=== PATIENT | female | born 1935 | race Caucasian/White ===

== ENCOUNTER 2016-11-26 09:33 | Outpatient (CLI) | payer MEDICARE ==
[2016-11-26 10:15] LABS: ALT (SGPT) 16 U/L (0-55); AST (SGOT) 16 U/L (5-34); Alkaline Phosphatase 65 U/L (40-150); Anion Gap 13 mmol/L (10-20); BUN (Urea Nitrogen) 11 mg/dL (9.8-20.1); Bilirubin, Direct 0.2 mg/dL (0.1-0.3); Bilirubin, Total 0.5 mg/dL (0.2-1.2); Calc. Creatinine Clearance 0 mL/min (70-130); Carbon Dioxide 29 mmol/L (23-31); Cardiac Risk 2.4 (Less than 4.5); Chloride 102 mmol/L (98-107); Cholesterol 140 mg/dL (< 200 Desired); Estimated GFR-MDRD 75; Glucose 92 mg/dL (83-110); HDL Cholesterol 58 mg/dL (>60 Neg Risk); LDL Cholesterol, Calculated 66 mg/dL; Potassium 4.2 mmol/L (3.5-5.1); Protein, Total 6.2 g/dL (5.8-8.1); Sodium 140 mmol/L (136-145); Triglycerides 80 mg/dL (Less than 150)
== END 2016-11-26 09:34 | disposition home or self-care (01) ==
LOC: MADLAB 09:33
PROVIDERS: ATTEND Internal Medicine Cardiovascular Disease
DX: E78.2 Mixed hyperlipidemia (principal); I10 Essential (primary) hypertension
CPT/HCPCS: 36415; 80048; 80061; 80076

== ENCOUNTER 2017-04-21 12:33 | Outpatient (CLI) | payer MEDICARE | END 2017-04-21 12:34 | disposition home or self-care (01) | LOC: MADLAB 12:33 | PROVIDERS: ATTEND Surgery | DX: R23.3 Spontaneous ecchymoses (principal); D64.9 Anemia, unspecified | CPT/HCPCS: 36415; 82607 ==

== ENCOUNTER 2017-09-17 05:50 | Emergency (ER) | payer MEDICARE ==
[2017-09-17 07:03] LABS: Prothrombin Time 12.9 SEC (12.0-14.7)
[2017-09-17 07:04] LABS: PTT 22.7 SEC (22.9-36.1)
[2017-09-17 07:14] LABS: CKMB 2.3 ng/mL (0-6.6); Troponin I Less than 0.010 ng/mL (< 0.028)
[2017-09-17 07:17] LABS: ALT (SGPT) 16 U/L (8-55); AST (SGOT) 18 U/L (5-34); Albumin 3.5 g/dL (3.4-4.8); Alkaline Phosphatase 48 U/L (40-150); Anion Gap 13 mmol/L (10-20); BUN (Urea Nitrogen) 16 mg/dL (9.8-20.1); Bilirubin, Total 0.3 mg/dL (0.2-1.2); CK (CPK) 229 U/L (29-168); Calc. Creatinine Clearance 0 mL/min (70-130); Calcium 8.7 mg/dL (7.8-10.44); Carbon Dioxide 26 mmol/L (23-31); Chloride 101 mmol/L (98-107); Estimated GFR-MDRD 84; Globulin 2.4 g/dL (2.4-3.5); Glucose 114 mg/dL (83-110); Magnesium 2.1 mg/dL (1.6-2.6); Potassium 4.1 mmol/L (3.5-5.1); Protein, Total 5.9 g/dL (6.0-8.3); Sodium 136 mmol/L (136-145)
[2017-09-17 07:21] LABS: Anisocytosis SLIGHT = 6-15 cells (100X) (0-5/hpf); Eosinophils 2 % (0-10); Giant Platelets SLIGHT; Hypochromia MODERATE=16-30 cells (100X) (0-5/hpf); Lymphocytes 10 % (21-51); MDiff Complete? YES; Macrocytosis SLIGHT = 6-15 cells (100X) (0-5/hpf); Mean Corpuscular HGB CONC 31.7 g/dL (32.0-36.0); Mean Corpuscular Hemoglobin 35.7 pg (27.0-31.0); Mean Corpuscular Volume 112.4 fl (81.0-99.0); Mean Platelet Volume 11.6 fL (7.4-10.4); Microcytosis SLIGHT = 6-15 cells (100X) (0-5/hpf); Monocytes 4 % (0-10); Neutrophil 84 % (42-75); PLT Morphology Comment Appears Adequate; Platelet Count 168 thou/uL (130-400); Poikilocytosis SLIGHT = 6-15 cells (100X) (0-5/hpf); RBC Distribution Width 17.6 % (11.5-14.5); RBC Morphology Abnormal; Red Blood Cell (RBC) Count 3.08 mill/uL (4.20-5.40); Target Cells SLIGHT = 2-5 cells (100X) (0-1/hpf); White Blood Cell (WBC) Count 5.9 thou/uL (4.8-10.8)
[2017-09-17 07:22] LABS: #Basophils 0.1 thou/uL (0.0-0.2); #Eosinphils 0.1 thou/uL (0.0-0.7); #Lymphocytes 0.8 thou/uL (1.20-3.40); #Monocytes 0.5 thou/uL (0.11-0.59); #Neutrophils 4.5 thou/uL (1.40-6.50); %Basophils 0.9 % (0.0-1.0); %Eosinophils 1.2 % (0.0-10.0); %Lymphocytes 13.2 % (21.0-51.0); %Monocytes 9.2 % (0.0-10.0); %Neutrophils 75.5 % (42.0-75.0)
[2017-09-17 07:48] LABS: Blood, Urine Negative (Negative); Clarity Clear (Clear); Glucose, Urine (Dipstick) Negative (Negative); Leukocyte Negative (Negative); Nitrite Negative (Negative); Protein, Urine (Dipstick) Trace mg/dL (Neg-Trace); Specific Gravity, Urine 1.025 (1.005-1.030); pH, Urine 6.5 (5.0-9.0)
[2017-09-17 07:53] LABS: Bilirubin Negative (Negative); RBC/HPF None Seen HPF (0-3); Squamous Epithelial 0-3 HPF (0-3); WBC/HPF None Seen HPF (0-3)
[2017-09-17 07:54] LABS: Bacteria/HPF None Seen HPF (None Seen); Other Microscopic Description C&S SET UP
--- NOTE | 2017-09-17 08:15 | RAD ---
UPRIGHT PORTABLE CHEST 1 VIEW: HISTORY: An 82-year-old female with weakness. FINDINGS: Partial column stimulator leads in place. Atherosclerosis of the aorta with some ectasia. No conflu ent pneumonia, overt edema, or pleural effusion. Stable from prior study, 07/21/14. IMPRESSION: Atherosclerosis of the aorta with ectasia. No significant acute intrathoracic disease. POS: [facility]
[2017-09-17] MEDS ORDERED: Sodium Chloride 0.9% 1,000 ML BAG ONE (09:01)
[2017-09-17] MEDS ORDERED: HYDROcodone/Acetaminophen 5/325 mg Tablet ONE (09:36)
--- NOTE | 2017-09-17 10:22 | CT ---
CT LUMBAR SPINE NONCONTRAST: HISTORY: Low back pain. Leg weakness. FINDINGS: There is approximately 40% compression of the T12 and L1 vertebral bodies. Radiopaque cement is pres ent within the L1 vertebral body from prior vertebroplasty. There is mild retropulsion of the L1 sup erior end plate that compromises the AP diameter of the thecal sac by approximately 30%. Postoperati ve changes of the lower lumbar spine including anterior fixation and interbody fusion material at the L4-5 level and surgical absence of the posterior elements at the L3-4-5 levels. No focal disk herni ation is apparent. Osseous structures are demineralized. Osteophytosis is present throughout the ve rtebral bodies and facets. At the lumbosacral junction, there is gas-disk phenomenon and grade II degenerative spondylolisthesis . Dorsal column stimulator leads enter the posterior aspect of the thoracolumbar central spinal dani l and ascend into the thoracic spine. Within the partially visualized retroperitoneum, there is prominent calcification of the arterial str uctures. Diverticula arise from the sigmoid colon. IMPRESSION: 1. Partial compression of the T12 and L1 vertebrae, favored to be chronic. Extensive postoperative and degenerative changes are as detailed above. No acute injury to explain leg weakness is evident. 2. Atherosclerosis. POS: [facility]
== END 2017-09-17 10:29 | disposition short-term general hospital (02) ==
LOC: MADERS 05:50
DX: R53.1 Weakness (principal); E78.5 Hyperlipidemia, unspecified; K21.9 Gastro-esophageal reflux disease without esophagitis; E03.9 Hypothyroidism, unspecified; Z79.899 Other long term (current) drug therapy
CPT/HCPCS: 36415; 71045; 72131; 80053; 81001; 82550; 82553; 83605; 83735; 83880; 84443; 84484; 85025; 85610; 85730; 87086; 93005; 94760; 96360; 96361; J7050

== ENCOUNTER 2019-01-02 11:04 | Outpatient (CLI) | payer MEDICARE ==
--- NOTE | 2019-01-02 11:27 | RAD ---
RADIOGRAPH CHEST 2 VIEWS: DATE: 01/02/2019 HISTORY: 83-year-old female with asthmatic bronchitis FINDINGS: There is no airspace density, pulmonary edema, pleural effusion, pneumothorax, or cardiomegaly. IMPRESSION: No acute cardiopulmonary findings.
== END 2019-01-02 11:05 | disposition home or self-care (01) ==
LOC: MADRAD 11:04
PROVIDERS: ATTEND Family Medicine
DX: J45.909 Unspecified asthma, uncomplicated (principal)
CPT/HCPCS: 71046

== ENCOUNTER 2019-08-17 17:31 | Inpatient (IN) | payer MEDICARE ==
[2019-08-17] MEDS ORDERED: Nitroglycerin 0.4 MG TAB 1 EACH ONE (18:19)
[2019-08-17] MEDS ORDERED: Fentanyl 100 MCG/2 ML VIAL ONE (18:57)
--- NOTE | 2019-08-17 19:10 | RAD ---
RIGHT KNEE FOUR VIEWS: 08/17/19 HISTORY: Injury. Right knee pain. FINDINGS/IMPRESSION: A total knee arthroplasty is present. There is a cortical step-off involving the medial femoral cond yle suspicious for a fracture. Clinical correlation is recommended. POS: [facility]
--- NOTE | 2019-08-17 19:11 | RAD ---
RIGHT TIBIA AND FIBULA TWO VIEWS: 08/17/19 HISTORY: Injury. Unable to bear weight. The bones appear demineralized. Vascular calcifications are present. A total knee prosthesis is noted . There is no signs of fracture. IMPRESSION: No evidence of fracture. POS: [facility]
[2019-08-17] MEDS ORDERED: Acetaminophen 325 MG TAB ONE (21:33)
[2019-08-17] MEDS ORDERED: HYDROcodone/Acetaminophen 5/325 mg Tablet ONE (21:33)
[2019-08-17] MEDS ORDERED: Enoxaparin Sodium 30 MG/0.3 ML SYRINGE ONE (21:33)
[2019-08-17 23:25] VITALS: BMI 19.8
[2019-08-18] MEDS: Acetaminophen 325 MG TAB PO PRN ×3 (03:42→22:20)
[2019-08-18 06:22] LABS: ALT (SGPT) 15 U/L (8-55); AST (SGOT) 14 U/L (5-34); Albumin 3.5 g/dL (3.4-4.8); Alkaline Phosphatase 63 U/L (40-110); Anion Gap 12 mmol/L (10-20); BUN (Urea Nitrogen) 14 mg/dL (9.8-20.1); Bilirubin, Total 0.6 mg/dL (0.2-1.2); Calc. Creatinine Clearance 50 mL/min (70-130); Calcium 8.2 mg/dL (7.8-10.44); Carbon Dioxide 24 mmol/L (23-31); Chloride 109 mmol/L (98-107); Estimated GFR-MDRD Greater than 90; Globulin 2.1 g/dL (2.4-3.5); Glucose 102 mg/dL (83-110); Potassium 3.2 mmol/L (3.5-5.1); Protein, Total 5.6 g/dL (6.0-8.3); Sodium 142 mmol/L (136-145)
[2019-08-18 06:28] LABS: #Basophils 0.2 thou/uL (0.0-0.2); #Eosinphils 0.4 thou/uL (0.0-0.7); #Lymphocytes 0.8 thou/uL (1.20-3.40); #Monocytes 0.9 thou/uL (0.11-0.59); #Neutrophils 7.6 thou/uL (1.40-6.50); %Basophils 2.4 % (0.0-1.0); %Eosinophils 3.8 % (0.0-10.0); %Lymphocytes 8.1 % (21.0-51.0); %Neutrophils 76.7 % (42.0-75.0); Anisocytosis MARKED = >30 cells (100X) (0-5/hpf); Hemoglobin 7.2 g/dL (12.0-16.0); MDiff Complete? YES; Mean Corpuscular HGB CONC 30.2 g/dL (32.0-36.0); Mean Corpuscular Hemoglobin 27.5 pg (27.0-31.0); Mean Corpuscular Volume 90.9 fL (78.0-98.0); Mean Platelet Volume 12.1 fL (7.4-10.4); Ovalocytes MODERATE= 6-15 cells (100X) (0-1/hpf); Platelet Count 195 thou/uL (130-400); Red Blood Cell (RBC) Count 2.62 mill/uL (4.20-5.40); Target Cells SLIGHT = 2-5 cells (100X) (0-1/hpf)
[2019-08-18] MEDS ORDERED: HYDROcodone/Acetaminophen 5/325 mg Tablet PO PRN (07:27)
[2019-08-18] MEDS: Amlodipine 5 MG TAB PO SCH (07:50)
[2019-08-18] MEDS: Lisinopril 5 MG TAB PO SCH (07:51)
[2019-08-18] MEDS ORDERED: Enoxaparin Sodium 30 MG/0.3 ML SYRINGE SC SCH (09:00)
[2019-08-18] MEDS ORDERED: Clopidogrel Bisulfate 75 MG TAB PO SCH (09:00)
[2019-08-18] MEDS ORDERED: Potassium Chloride 10 MEQ TAB PO SCH (10:45)
[2019-08-18] MEDS ORDERED: Polyethylene Glycol 3350 17 GM Packet PO SCH (10:45)
[2019-08-18] MEDS: HYDROcodone/Acetaminophen 5/325 mg Tablet PO PRN ×4 (11:52→20:15)
[2019-08-18 12:18] LABS: #Basophils 0.2 thou/uL (0.0-0.2); #Eosinphils 0.4 thou/uL (0.0-0.7); #Lymphocytes 0.7 thou/uL (1.20-3.40); #Monocytes 0.8 thou/uL (0.11-0.59); %Basophils 1.7 % (0.0-1.0); %Eosinophils 4.1 % (0.0-10.0); %Lymphocytes 6.8 % (21.0-51.0); %Monocytes 8.3 % (0.0-10.0); %Neutrophils 79.2 % (42.0-75.0); Hemoglobin 7.1 g/dL (12.0-16.0); Mean Corpuscular HGB CONC 30.7 g/dL (32.0-36.0); Mean Corpuscular Hemoglobin 27.8 pg (27.0-31.0); Mean Corpuscular Volume 90.6 fL (78.0-98.0); Mean Platelet Volume 12.7 fL (7.4-10.4); Platelet Count 190 thou/uL (130-400); Red Blood Cell (RBC) Count 2.55 mill/uL (4.20-5.40); White Blood Cell (WBC) Count 10.1 thou/uL (4.8-10.8)
[2019-08-18 12:33] LABS: Anisocytosis MODERATE=16-30 cells (100X) (0-5/hpf); Hypochromia SLIGHT = 6-15 cells (100X) (0-5/hpf)
[2019-08-18 12:34] LABS: Target Cells SLIGHT = 2-5 cells (100X) (0-1/hpf)
[2019-08-18] MEDS: Potassium Chloride 10 MEQ TAB PO SCH (16:31)
[2019-08-18] MEDS: Atorvastatin Calcium 40 MG TAB PO SCH (20:14)
[2019-08-18] MEDS ORDERED: UNISOM 25 MG PO SCH (21:00)
[2019-08-18] MEDS: Melatonin 3 MG TAB PO PRN (22:20)
[2019-08-19] MEDS: HYDROcodone/Acetaminophen 5/325 mg Tablet PO PRN ×4 (00:32→20:41)
[2019-08-19 05:50] LABS: Anion Gap 11 mmol/L (10-20); BUN (Urea Nitrogen) 15 mg/dL (9.8-20.1); Calc. Creatinine Clearance 49 mL/min (70-130); Calcium 8.1 mg/dL (7.8-10.44); Carbon Dioxide 26 mmol/L (23-31); Chloride 107 mmol/L (98-107); Estimated GFR-MDRD 90; Glucose 110 mg/dL (83-110); Potassium 3.9 mmol/L (3.5-5.1); Sodium 140 mmol/L (136-145)
[2019-08-19 06:06] LABS: Anisocytosis MARKED = >30 cells (100X) (0-5/hpf); Helmet Cells SLIGHT = 2-5 cells (100X) (0-1/hpf); Hypochromia MODERATE=16-30 cells (100X) (0-5/hpf); MDiff Complete? YES; Ovalocytes MODERATE= 6-15 cells (100X) (0-1/hpf); Target Cells MARKED = >16 cells (100X) (0-1/hpf)
[2019-08-19 06:07] LABS: #Basophils 0.2 thou/uL (0.0-0.2); #Eosinphils 0.7 thou/uL (0.0-0.7); #Lymphocytes 1.4 thou/uL (1.20-3.40); #Neutrophils 5.8 thou/uL (1.40-6.50); %Basophils 1.7 % (0.0-1.0); %Eosinophils 7.8 % (0.0-10.0); %Lymphocytes 15.8 % (21.0-51.0); %Monocytes 11.3 % (0.0-10.0); %Neutrophils 63.5 % (42.0-75.0); Hemoglobin 6.9 g/dL (12.0-16.0); Mean Corpuscular HGB CONC 31.2 g/dL (32.0-36.0); Mean Corpuscular Hemoglobin 27.9 pg (27.0-31.0); Mean Corpuscular Volume 89.5 fL (78.0-98.0); Mean Platelet Volume 13.1 fL (7.4-10.4); Platelet Count 171 thou/uL (130-400); Red Blood Cell (RBC) Count 2.47 mill/uL (4.20-5.40); White Blood Cell (WBC) Count 9.1 thou/uL (4.8-10.8)
[2019-08-19] MEDS: Amlodipine 5 MG TAB PO SCH (08:21)
[2019-08-19] MEDS: Potassium Chloride 10 MEQ TAB PO SCH ×2 (08:21→17:32)
[2019-08-19] MEDS: Lisinopril 5 MG TAB PO SCH (08:21)
[2019-08-19] MEDS: Polyethylene Glycol 3350 17 GM Packet PO SCH (08:22)
[2019-08-19] MEDS: Atorvastatin Calcium 40 MG TAB PO SCH (20:42)
[2019-08-19] MEDS: Melatonin 3 MG TAB PO PRN (21:38)
[2019-08-20] MEDS: HYDROcodone/Acetaminophen 5/325 mg Tablet PO PRN ×4 (01:15→20:33)
[2019-08-20 06:07] LABS: Anion Gap 13 mmol/L (10-20); BUN (Urea Nitrogen) 12 mg/dL (9.8-20.1); Calc. Creatinine Clearance 52 mL/min (70-130); Calcium 8.2 mg/dL (7.8-10.44); Carbon Dioxide 25 mmol/L (23-31); Chloride 107 mmol/L (98-107); Estimated GFR-MDRD Greater than 90; Glucose 106 mg/dL (83-110); Potassium 4.5 mmol/L (3.5-5.1); Sodium 140 mmol/L (136-145)
[2019-08-20 06:16] LABS: #Basophils 0.2 thou/uL (0.0-0.2); #Eosinphils 0.6 thou/uL (0.0-0.7); #Lymphocytes 1.2 thou/uL (1.20-3.40); #Neutrophils 5.3 thou/uL (1.40-6.50); %Basophils 1.9 % (0.0-1.0); %Lymphocytes 14.6 % (21.0-51.0); %Monocytes 11.6 % (0.0-10.0); %Neutrophils 64.9 % (42.0-75.0); Anisocytosis MODERATE=16-30 cells (100X) (0-5/hpf); Hemoglobin 8.4 g/dL (12.0-16.0); MDiff Complete? YES; Mean Corpuscular HGB CONC 31.2 g/dL (32.0-36.0); Mean Corpuscular Hemoglobin 27.5 pg (27.0-31.0); Mean Corpuscular Volume 88.1 fL (78.0-98.0); Mean Platelet Volume 13.8 fL (7.4-10.4); Ovalocytes MODERATE= 6-15 cells (100X) (0-1/hpf); Platelet Count 175 thou/uL (130-400); RBC Distribution Width 18.7 % (11.5-14.5); Red Blood Cell (RBC) Count 3.05 mill/uL (4.20-5.40); Target Cells SLIGHT = 2-5 cells (100X) (0-1/hpf); White Blood Cell (WBC) Count 8.2 thou/uL (4.8-10.8)
--- NOTE | 2019-08-20 07:19 | HP ---
CHIEF COMPLAINT: Fall with severe pain in her right knee. HISTORY OF PRESENT ILLNESS: The patient is an 84-year-old white female, who has a history of hypertension, coronary artery disease, has a gait abnormality secondary to bilateral knee replacements. Early on the morning of 08/17/2018, the patient had gotten up to go to the bathroom and had fallen and hit her knee. She could not get up, was complaining of pain in the right hip. EMS was called and she was taken to the emergency room in [place] at [facility]. There, she was evaluated and underwent chest x-ray, which was clear. X-ray of her right hip, which showed no evidence of any fracture. She also underwent a CT of the pelvis, which showed no acute fracture. She did show evidence of a chronic ununited left obturator ring fracture and left posterior ilial bone graft site and a healed fracture of the left posterior ilium and diffuse osteopenia. She was sent home. Her son, Jomar, took her home, but she could not walk. She had progressive pain and inability to walk. Her son called me and said that his mother was having severe pain in the right knee and that they could not manage her in home. Her could not take care of her and she could not walk and besides was having severe pain in the right knee. Apparently, this right knee had not been evaluated. The patient was directed to go to the emergency room here in [place]. There, she was evaluated and was found to have a moderate effusion of the right knee. The knee was x-rayed and the radiologist reviewed this and found that she had a total knee orthoplasty. She also had a cortical step-off involving the medial condyle suspicious of a fracture. The ER doctor, Dr. Bella, conferred with the on-call orthopedic surgeon, Dr. Rojelio Flanagan, who reviewed the films and said that this would be initially managed with no weightbearing, pain control, and evaluation with repeat x-rays in a week to see if there was any displacement. This patient was admitted here at [facility] with this in mind and she was placed to bedrest with no weightbearing and started on Lovenox for DVT prophylaxis. The patient was seen early on the morning of 08/18/2018, with her son, Jomar, in attendance. She said she had slept pretty well through the night, but awoke around 6 and was uncomfortable. She had taken Tylenol with hydrocodone 325/5 mg and then this was repeated this morning and she was reasonably comfortable, particularly with the ice application. She has remained with no weightbearing. Nurses held her Plavix and her Lovenox because her blood count had dropped from 8.6 on admission to 7.2. The patient reviewed with me what had happened about the fall in the bathroom. She said she did not hit her head and there had been no loss of consciousness. PAST HISTORY: Coronary heart disease. The patient has had no surgery on her heart, has had no stents, she just medically managed. Hypertension, overactive bladder , hypercholesterolemia, depression, hypothyroidism, anemia of chronic illness. Hemoglobin has been around 9.9 in December of 2017. Last reading was in June of 2019, was 9.0. 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 The patient has had bilateral total knee replacements, BREANA and BSO. Also, has had surgery on her neck. The patient has also had gait abnormality that stabilized with a walker. PRESENT MEDICINES: 1. Lisinopril 2.5 mg daily. 2. Amlodipine 2.5 mg daily. 3. Atorvastatin 40 mg daily. 4. Plavix 75 mg daily. 5. Ranolazine ER 1000 mg b.i.d. 6. Oxybutynin 5 mg two tablets at bedtime. 7. Ventolin inhaler two puffs every 4 hours as needed. ALLERGIES: MORPHINE. REVIEW OF SYSTEMS: GENERAL: The patient has had no recent weight gain or loss. The patient has had no fever. HEAD AND NECK: No recent head trauma. PULMONARY: No complaints. CARDIOVASCULAR: No chest pain. GASTROINTESTINAL: No complaints. GENITOURINARY: The patient complains of urinary frequency. MUSCULOSKELETAL: The patient complains of right knee pain. HABITS: Alcohol, none; tobacco, none. SOCIAL HISTORY: The patient is and lives with her . ACTIVITIES OF DAILY LIVING: The patient able to dress herself, bathe herself, feed herself. The patient ambulates with the use of a walker. CODE STATUS: Full code. PHYSICAL EXAMINATION: GENERAL: Shows an 84-year-old white female, who is sitting up in bed. She appears very pale, but she does appear comfortable. VITAL SIGNS: Her temperature is 97.7, pulse 75, respirations 16, O2 saturation 93% on room air, blood pressure 158/70. Her weight is 105. Her height is 60 inches. HEENT: Head, normocephalic and atraumatic. Eyes; pupils are equal, round, and reactive. Ears, TMs are clear. Nose, normal. Mouth and throat, normal. NECK: Carotids are equal and strong. Thyroid not enlarged. LUNGS: Clear. HEART: Regular rate. No murmurs. ABDOMEN: Soft with no organomegaly. EXTREMITIES: Hips are nontender. Left knee, there is a well-healed vertical incision. There is no effusion. Right knee, very limited range of motion. There is a large effusion present and limited range of motion, and the lower leg has no edema. NEUROLOGIC: The patient alert and oriented x3. She has limited motion in that right leg. Otherwise, there is no weakness in the other extremities. LABORATORY DATA: Her hemoglobin on 06/19, was 9.0. Hemoglobin on 08/17/2019, was 8.6, and hemoglobin on 08/18 was 7.2 with hematocrit of 23.8, white blood cell count 10,000, with 77% segs, 8% lymphocytes, and platelet count of a 195,000. Sodium 142, potassium 3.2, BUN 14, creatinine 0.62, GFR greater than 90, glucose 102, albumin 3.5. IMPRESSION: 1. Undisplaced fracture of the right medial femoral condyle. a. Secondary to a fall on the morning of 08/17/2019. 2. Chronic anemia. a. Hemoglobin chronically is around 9 in June 2019. b. Drop in hemoglobin from 8.6 on 08/17 to 7.2 on 08/18 secondary to acute blood loss from the femoral condyle fracture. 3. Hypertension. 4. Coronary artery disease. a. Asymptomatic. 5. Hyperlipidemia. 6. Overactive bladder. 7. Spondylosis of the spine. 8. Hypokalemia. PLAN: I have placed the patient in a knee immobilizer and the patient will be placed nonweightbearing per recommendation of Orthopedic surgeon, Dr. Flanagan. We will re x-ray in a week to ensure there has been no displacement and have him review this x-ray for further disposition. We will repeat CBC. If this drops below 7 , we will need to transfuse. I have stopped the Plavix and the Lovenox, and placed the patient in a knee immobilizer. We will continue the hydrocodone/acetaminophen 5 /325 for pain. We will use ice pack for discomfort. We will also place the patient on potassium supplementation. Job ID: [id number] [facility]
[2019-08-20] MEDS: Lisinopril 5 MG TAB PO SCH (10:03)
[2019-08-20] MEDS: Polyethylene Glycol 3350 17 GM Packet PO SCH (10:06)
[2019-08-20] MEDS: Amlodipine 5 MG TAB PO SCH (10:06)
--- NOTE | 2019-08-20 11:38 | PRG ---
DATE OF SERVICE: 08/19/2019 SUBJECTIVE: The patient said she had a good night. She said her right leg feels better in the knee immobilizer and as long as she did not move the leg. OBJECTIVE: GENERAL: The patient is sitting upright in bed. She is smiling, looks very comfortable. VITAL SIGNS: Show a temperature 97.1, pulse 93, respirations 14, O2 saturation 93% on room air, and blood pressure 146/65. LUNGS: Clear. HEART: Regular rate. EXTREMITIES: Her lower extremity, the right leg is in a knee immobilizer. There is a moderate effusion in the right knee, but unchanged from previous. The lower leg has no swelling or tenderness in the calf. Left lower leg has no swelling. LABORATORY DATA: The H and H done yesterday at noon was 7.1, today is 6.9 with a platelet count of 171,000. ASSESSMENT: 1. Undisplaced fracture of the medial condyle of the right femur. a. Secondary to a fall on the crop farmers of 08/17/2019. b. Managed with knee immobilizer and nonweightbearing per recommendation of on-call orthopedic surgeon, Dr. Rojelio Flanagan. c. Comfortable as of 08/19/2019. 2. Chronic anemia. a. Hemoglobin usually runs in the 9. b. Drop in hemoglobin from 8.6 to 7.4 from 08/17 to 08/18 secondary to acute blood loss from the fracture and then to 7.1 at noon on 08/18. c. Hemoglobin 6.9 as of 08/19/2019. 3. Coronary artery disease. a. Asymptomatic. 4. Hypertension controlled. 5. Hyperkalemia, improved potassium of 3.9 as of 08/19. PLAN: Continue nonweightbearing in the knee immobilizer. Transfuse 1 unit of packed RBCs. Recheck CBC and basic metabolic panel in the morning. Job ID: [id number] [facility]
--- NOTE | 2019-08-20 11:42 | PRG ---
DATE OF SERVICE: 08/20/2019 SUBJECTIVE: The patient says she is doing okay this morning. She said she not sleep as well last night, some nights are like that. She says her knee is feeling okay this morning. The patient did receive 1 unit of packed red blood cells yesterday. OBJECTIVE: GENERAL: The patient is lying in bed. She is awake and alert oriented x3. VITAL SIGNS: Shows temp 96.6, pulse 66, respirations 16, O2 saturation 94% on room air, blood pressure 145/66. LUNGS: Clear. HEART: Regular rate. EXTREMITIES: Right leg is in a knee immobilizer. Left leg no edema. LABORATORY DATA: CBC this morning shows a H and H of 8.4 and 26.9. This is after transfusion yesterday of 1 unit of packed RBCs. White cell count 8200 with 65% segs, 15% lymphocytes, and a platelet count of 175,000. Sodium 140, potassium 4.5. ASSESSMENT: 1. Undisplaced fracture of the right medial femoral condyle. a. Had to be immobilized in a knee immobilizer. b. NO weightbearing. .c. Pain controlled as of 08/20/2019. 2. Chronic anemia. a. Hemoglobin chronically is around 9 in June 2019. b. Drop in hemoglobin from 8.6 on 08/17 to 7.2 on 08/18 secondary to acute blood loss from the femoral condyle fracture. c. Transfused 1 unit of packed red blood cells on 08/19/2019 for drop in hemoglobin to 6.9. Hemoglobin 8.4 on 08/20/2019. 3. Hypertension. 4. Coronary artery disease. a. Asymptomatic. 4. Hyperlipidemia. 5. Overactive bladder. 6. Spondylosis of the spine. 7. Hypokalemia. a. Resolved with potassium of 4.5. PLAN: Continue PT. Up in chair as tolerated. Continue knee immobilizer. No weightbearing on the right leg. We will discontinue the potassium. Job ID: [id number] [facility]
[2019-08-20] MEDS: Acetaminophen 325 MG TAB PO PRN (13:53)
[2019-08-20] MEDS: Atorvastatin Calcium 40 MG TAB PO SCH (20:34)
[2019-08-21] MEDS: HYDROcodone/Acetaminophen 5/325 mg Tablet PO PRN ×2 (00:46→05:31)
[2019-08-21] MEDS: Melatonin 3 MG TAB PO PRN (00:49)
[2019-08-21 05:56] LABS: #Basophils 0.2 thou/uL (0.0-0.2); #Eosinphils 0.4 thou/uL (0.0-0.7); #Lymphocytes 1.1 thou/uL (1.20-3.40); #Monocytes 0.8 thou/uL (0.11-0.59); #Neutrophils 4.1 thou/uL (1.40-6.50); %Basophils 2.6 % (0.0-1.0); %Eosinophils 6.8 % (0.0-10.0); %Lymphocytes 17.1 % (21.0-51.0); %Monocytes 11.5 % (0.0-10.0); Anisocytosis MARKED = >30 cells (100X) (0-5/hpf); Hemoglobin 8.6 g/dL (12.0-16.0); MDiff Complete? YES; Macrocytosis MODERATE=16-30 cells (100X) (0-5/hpf); Mean Corpuscular HGB CONC 30.5 g/dL (32.0-36.0); Mean Corpuscular Hemoglobin 27.7 pg (27.0-31.0); Mean Platelet Volume 13.2 fL (7.4-10.4); Ovalocytes MARKED = >16 cells (100X) (0-1/hpf); Platelet Count 195 thou/uL (130-400); Platelet Morphology Comment Appears Adequate; RBC Distribution Width 19.5 % (11.5-14.5); White Blood Cell (WBC) Count 6.6 thou/uL (4.8-10.8)
[2019-08-21 07:48] VITALS: TEMP 96.5
[2019-08-21] MEDS: Polyethylene Glycol 3350 17 GM Packet PO SCH (08:09)
[2019-08-21] MEDS: Acetaminophen 325 MG TAB PO PRN (08:09)
[2019-08-21] MEDS: Amlodipine 5 MG TAB PO SCH (08:10)
[2019-08-21] MEDS: Lisinopril 5 MG TAB PO SCH (08:10)
[2019-08-21 08:11] VITALS: BP 151/74
--- NOTE | 2019-08-21 11:52 | PRG ---
DATE OF SERVICE: SUBJECTIVE: The patient says she feels all right today. She said she thinks she is ready to get up in a chair today. She said her pain seemed to be reasonably controlled. She continues to wear her knee immobilizer on the right leg. OBJECTIVE: GENERAL: The patient lying in bed, appears comfortable. VITAL SIGNS: Show a temperature of 96.5, pulse 67, respirations 16, O2 saturation 96% on room air, blood pressure 154/74. LUNGS: Clear. HEART: Regular rate. EXTREMITIES: Right lower leg, there is no edema in the lower leg. There is still a little effusion on the right knee. Knee is immobilized in a long-leg knee immobilizer. ASSESSMENT: 1. Undisplaced fracture of the right medial femoral condyle. a. Immobilized in a knee immobilizer. b. No weightbearing. c. Pain controlled as of 08/21/2019. 2. Chronic anemia. a. Hemoglobin chronically is around 9. b. Drop in hemoglobin from 8.6 on 08/17 to 7.2 on 08/18 secondary to acute blood loss from the femoral condyle fracture. c. Transfuse 1 unit of packed red blood cells on 08/19/2019 for drop in hemoglobin to 6.9. The hemoglobin on 08/20/2019, 8.4. 3. Hypertension. 4. Coronary artery disease. a. Asymptomatic. 5. Hyperlipidemia. 6. Overactive bladder. 7. Spondylosis of the spine. 8. Hypokalemia. a. Resolved. PLAN: Continue the knee immobilizer. No weightbearing on the right leg. We will move the patient to extended care. Continue PT and OT, and no weightbearing. At 7 days from the accident, we will arrange for the patient to have a repeat x-ray of the right knee, the right femur, and followup appointment with Dr. Flanagan. We will move the patient to Extended Care for continue PT and OT. Job ID: [id number] [facility]
== END 2019-08-21 12:38 | disposition swing bed (61) | DRG 534 ==
LOC: MADERS 17:31 → MADMS 21:43
PROVIDERS: ADMIT Family Medicine; ATTEND Family Medicine
PROC: 30233N1 Transfusion of Nonautologous Red Blood Cells into Peripheral Vein, Percutaneous Approach (ICD-10-PCS; principal; 2019-08-18)
DX: S72.434A Nondisplaced fracture of medial condyle of right femur, initial encounter for closed fracture (principal); D62 Acute posthemorrhagic anemia; M97.11XA Periprosthetic fracture around internal prosthetic right knee joint, initial encounter; I10 Essential (primary) hypertension; I25.10 Atherosclerotic heart disease of native coronary artery without angina pectoris; Z96.653 Presence of artificial knee joint, bilateral; F32.9 Major depressive disorder, single episode, unspecified; E03.9 Hypothyroidism, unspecified; Z79.02 Long term (current) use of antithrombotics/antiplatelets; Z79.899 Other long term (current) drug therapy; Z88.8 Allergy status to other drugs, medicaments and biological substances; D64.9 Anemia, unspecified; E87.6 Hypokalemia; W01.0XXA Fall on same level from slipping, tripping and stumbling without subsequent striking against object, initial encounter; M47.9 Spondylosis, unspecified; E87.5 Hyperkalemia; E78.5 Hyperlipidemia, unspecified; E78.00 Pure hypercholesterolemia, unspecified; D63.8 Anemia in other chronic diseases classified elsewhere; N32.81 Overactive bladder
CPT/HCPCS: 36415; 36430; 80048; 80053; 85025; 86850; 86900; 86901; 96372; 96374; J1650; J3010; P9016

== ENCOUNTER 2019-08-21 07:48 | Inpatient (IN) | payer MEDICARE ==
[2019-08-21] MEDS ORDERED: Amlodipine 5 MG TAB PO SCH (13:45)
[2019-08-21] MEDS ORDERED: Lisinopril 5 MG TAB PO SCH (13:45)
[2019-08-21] MEDS ORDERED: Polyethylene Glycol 3350 17 GM Packet PO SCH (13:45)
[2019-08-21] MEDS: HYDROcodone/Acetaminophen 5/325 mg Tablet PO PRN ×2 (14:02→19:12)
[2019-08-21] MEDS: Acetaminophen 325 MG TAB PO PRN (17:48)
[2019-08-21] MEDS: Atorvastatin Calcium 40 MG TAB PO SCH (21:25)
[2019-08-21] MEDS: DOXYLAMINE SUCCINATE 25 MG PO SCH (21:27)
[2019-08-22] MEDS: HYDROcodone/Acetaminophen 5/325 mg Tablet PO PRN ×5 (01:23→21:53)
[2019-08-22 05:54] LABS: Anion Gap 12 mmol/L (10-20); BUN (Urea Nitrogen) 11 mg/dL (9.8-20.1); Calc. Creatinine Clearance 51 mL/min (70-130); Carbon Dioxide 26 mmol/L (23-31); Chloride 106 mmol/L (98-107); Estimated GFR-MDRD 90; Potassium 4.2 mmol/L (3.5-5.1); Sodium 140 mmol/L (136-145)
[2019-08-22 05:55] LABS: Calcium 8.6 mg/dL (7.8-10.44); Glucose 95 mg/dL (83-110)
[2019-08-22 05:56] LABS: Anisocytosis MARKED = >30 cells (100X) (0-5/hpf); Band 1 % (5-11); Eosinophils 6 % (0-10); Hemoglobin 8.7 g/dL (12.0-16.0); Lymphocytes 16 % (21-51); MDiff Complete? YES; Mean Corpuscular HGB CONC 31.6 g/dL (32.0-36.0); Mean Corpuscular Hemoglobin 28.6 pg (27.0-31.0); Mean Corpuscular Volume 90.4 fL (78.0-98.0); Mean Platelet Volume 13.4 fL (7.4-10.4); Monocytes 7 % (0-10); Neutrophil 70 % (42-75); Platelet Count 208 thou/uL (130-400); Platelet Morphology Comment Appears Adequate; RBC Distribution Width 19.8 % (11.5-14.5); Red Blood Cell (RBC) Count 3.05 mill/uL (4.20-5.40); Target Cells SLIGHT = 2-5 cells (100X) (0-1/hpf); White Blood Cell (WBC) Count 5.8 thou/uL (4.8-10.8)
[2019-08-22] MEDS: Amlodipine 5 MG TAB PO SCH (07:58)
[2019-08-22] MEDS: Lisinopril 5 MG TAB PO SCH (07:58)
[2019-08-22] MEDS: Polyethylene Glycol 3350 17 GM Packet PO SCH (07:59)
[2019-08-22] MEDS: Acetaminophen 325 MG TAB PO PRN ×2 (09:13→17:32)
[2019-08-22] MEDS ORDERED: Ferrous Gluconate 324 MG TAB PO SCH (09:45)
--- NOTE | 2019-08-22 10:11 | PRG ---
DATE OF SERVICE: SUBJECTIVE: The patient said that she is feeling better. She is sitting up in a geriatric chair and feels good to be out of bed. OBJECTIVE: GENERAL: The patient is alert, appears in no distress. VITAL SIGNS: Temperature of 98.2, pulse 72, respirations are 16, O2 sat 94% on room air, and blood pressure 153/80. LUNGS: Clear. HEART: Regular rate. LABORATORY DATA: Her H and H are 8.7 and 27.6, sodium 140, potassium 4.2, BUN 11, and creatinine 0.63. ASSESSMENT: 1. Undisplaced fracture of the right femoral condyle secondary to a fall on 08/17/2019. a. Immobilized in a knee immobilizer. b. Nonweightbearing. c. Pain control. d. Stable as of 08/22/2019. 2. Chronic anemia. a. Hemoglobin chronically is around 9. b. Hemoglobin dropped from 8.6 on 08/17 to 7.2 on 08/18 secondary to acute blood loss from the fracture. c. Transfused 1 unit of packed RBCs on 08/19 for drop in hemoglobin to 6.9. Hemoglobin 8.4 on 08/20. Hemoglobin on 08/22 is 8.6. 3. Hypertension. 4. Coronary artery disease, asymptomatic. 5. Hyperlipidemia. 6. Overactive bladder. 7. Spondylosis of the spine. PLAN: 1. Continue the knee immobilizer. 2. We will add ferrous gluconate 324 mg one a day for the anemia. Continue nonweightbearing. The patient is scheduled to see Dr. Rojelio Flanagan, orthopedic surgeon, on 08/29 at his office, and he will x-ray the knee then. Job ID: [id number] [facility]
[2019-08-22] MEDS: Atorvastatin Calcium 40 MG TAB PO SCH (20:22)
[2019-08-22] MEDS: DOXYLAMINE SUCCINATE 25 MG PO SCH (20:22)
[2019-08-23] MEDS: HYDROcodone/Acetaminophen 5/325 mg Tablet PO PRN ×4 (04:50→19:25)
[2019-08-23] MEDS: Ferrous Gluconate 324 MG TAB PO SCH (08:14)
[2019-08-23] MEDS: Amlodipine 5 MG TAB PO SCH (08:15)
[2019-08-23] MEDS: Lisinopril 5 MG TAB PO SCH (08:15)
[2019-08-23] MEDS: Polyethylene Glycol 3350 17 GM Packet PO SCH (08:16)
--- NOTE | 2019-08-23 09:34 | PRG ---
DATE OF SERVICE: 08/23/2019 SUBJECTIVE: The patient said she is doing okay this morning. Nurse reported yesterday, she had a lot of pain and did not seem to get complete relief with the one to hydrocodone. OBJECTIVE: GENERAL: The patient lying in bed this morning. She seems comfortable this morning. VITAL SIGNS: Show a temperature of 98.2, pulse 68, respirations 16, O2 saturation 94% on room air, blood pressure 153/70. LUNGS: Clear. HEART: Regular rate. EXTREMITIES: There is an effusion over the right knee. The lower leg has no edema. ASSESSMENT: 1. Undisplaced fracture of the right femoral condyle secondary to a fall on 08/17/2019. a. Immobilized in a knee immobilizer. b. Nonweightbearing on right leg. c. Pain still not adequately controlled. 2. Chronic anemia. a. Hemoglobin chronically is around 9. b. Hemoglobin dropped from 8.6 on 08/17 to 7.2 on 08/18 secondary to acute blood loss from the fracture. c. Transfused 1 unit of packed RBCs on 08/19 for drop in hemoglobin to 6.9. Hemoglobin 8.4 on 08/20. Hemoglobin on 08/22 is 8.6. 3. Hypertension. 4. Coronary artery disease, asymptomatic. 5. Hyperlipidemia. 6. Overactive bladder. 7. Spondylosis of the spine. PLAN: 1. Continue knee immobilizer. 2. Due to follow up with Dr. Rojelio Flanagan, orthopedic surgeon on 08/29/2018. Continue nonweightbearing on the right leg and increase the hydrocodone 1 to 2 every 4 hours as needed. Job ID: [id number] [facility]
[2019-08-23] MEDS: Atorvastatin Calcium 40 MG TAB PO SCH (20:12)
[2019-08-23] MEDS: DOXYLAMINE SUCCINATE 25 MG PO SCH (20:12)
[2019-08-24] MEDS: HYDROcodone/Acetaminophen 5/325 mg Tablet PO PRN ×4 (00:57→17:44)
[2019-08-24] MEDS: Lisinopril 5 MG TAB PO SCH (09:09)
[2019-08-24] MEDS: Amlodipine 5 MG TAB PO SCH (09:11)
[2019-08-24] MEDS: Ferrous Gluconate 324 MG TAB PO SCH (09:11)
[2019-08-24] MEDS: Polyethylene Glycol 3350 17 GM Packet PO SCH (09:12)
--- NOTE | 2019-08-24 12:01 | PRG ---
DATE OF SERVICE: 08/24/2019 SUBJECTIVE: The patient said she is feeling better. She had a better night. She is up in a chair this morning. Occupational Therapy is working with her, and she is doing some exercises of her arms. OBJECTIVE: VITAL SIGNS: Show temperature 97.8, pulse 71, respirations 18, O2 saturation 95%, blood pressure 131/92. LUNGS: Clear. HEART: Regular rate. EXTREMITIES: The patient is wearing her knee immobilizer on that right knee. ASSESSMENT: 1. Undisplaced fracture of the right medial femoral condyle secondary to a fall on 08/17/2019. a. Immobilized in a knee immobilizer. b. Nonweightbearing on the right leg. c. Pain controlled. 2. Chronic anemia. a. Hemoglobin chronically around 9. b. Hemoglobin dropped from 8.6 on 08/17, to 7.2 on 08/18, secondary to acute blood loss from the fracture. c. Transfused 1 unit of packed RBCs on 08/19, for drop in the hemoglobin to 6.9. Hemoglobin 8.4 on 08/20. Hemoglobin on 08/22, 8.6. 3. Hypertension. 4. Coronary artery disease, asymptomatic. 5. Hyperlipidemia. 6. Overactive bladder. 7. Spondylosis of the spine. PLAN: Continue present care. Continue PT and OT. Job ID: [id number] [facility]
[2019-08-24] MEDS: Atorvastatin Calcium 40 MG TAB PO SCH (20:35)
[2019-08-24] MEDS: DOXYLAMINE SUCCINATE 25 MG PO SCH (20:36)
[2019-08-25] MEDS: HYDROcodone/Acetaminophen 5/325 mg Tablet PO PRN ×2 (04:56→13:32)
[2019-08-25] MEDS: Polyethylene Glycol 3350 17 GM Packet PO SCH (08:57)
[2019-08-25] MEDS: Lisinopril 5 MG TAB PO SCH (08:58)
[2019-08-25] MEDS: Ferrous Gluconate 324 MG TAB PO SCH (08:58)
[2019-08-25] MEDS: Amlodipine 5 MG TAB PO SCH (08:58)
[2019-08-25] MEDS: Atorvastatin Calcium 40 MG TAB PO SCH (20:35)
[2019-08-25] MEDS: DOXYLAMINE SUCCINATE 25 MG PO SCH (20:36)
[2019-08-26] MEDS: HYDROcodone/Acetaminophen 5/325 mg Tablet PO PRN ×4 (00:17→21:02)
[2019-08-26] MEDS: Lisinopril 5 MG TAB PO SCH (08:58)
[2019-08-26] MEDS: Amlodipine 5 MG TAB PO SCH (08:58)
[2019-08-26] MEDS: Ferrous Gluconate 324 MG TAB PO SCH (08:58)
[2019-08-26] MEDS: Polyethylene Glycol 3350 17 GM Packet PO SCH (08:59)
[2019-08-26] MEDS: Atorvastatin Calcium 40 MG TAB PO SCH (20:13)
[2019-08-26] MEDS: DOXYLAMINE SUCCINATE 25 MG PO SCH (22:45)
[2019-08-27] MEDS: HYDROcodone/Acetaminophen 5/325 mg Tablet PO PRN ×4 (02:23→20:34)
[2019-08-27] MEDS ORDERED: HYDROcodone/Acetaminophen 5/325 mg Tablet PO SCH (05:00)
--- NOTE | 2019-08-27 08:11 | PRG ---
DATE OF SERVICE: 08/25/2019 SUBJECTIVE: The patient said she slept real good last night. She still has pain in that knee, but usually able to control this with her pain medicine and ice pack. She is wearing her knee immobilizer and has had no weightbearing on that right leg. OBJECTIVE: GENERAL: The patient is sitting up in bed, appears comfortable, in no distress. VITAL SIGNS: Temperature 97.8, pulse 75, blood pressure 125/60, respirations 16 , O2 saturation 94% on room air. LUNGS: Clear. HEART: Regular rate. EXTREMITIES: Lower extremities, no edema. Right knee, the knee immobilizer is present. She has moderate effusion present. ASSESSMENT: 1. Undisplaced fracture of the right medial femoral condyle secondary to a fall on 08/17/2019. a. Immobilized in a knee immobilizer. b. Nonweightbearing on the right leg. c. Pain reasonably controlled with the use of intermittent ice packs and analgesics. 2. Chronic anemia. a. Hemoglobin chronically around 9. b. Hemoglobin dropped from 8.6 on 08/17 to 7.2 on 08/18, secondary to the acute blood loss from the fracture. c. Transfuse 1 unit of packed RBCs on 08/19 for drop in hemoglobin to 6.9. Hemoglobin 8.4 on 08/20. Hemoglobin on 08/22 is 8.6. 3. Hypertension. 4. Coronary heart disease, asymptomatic. 5. Hyperlipidemia. 6. Overactive bladder. 7. Spondylosis of the spine. PLAN: Continue present care. Continue PT and OT. The patient due to see Dr. Rojelio Flanagan, orthopedic surgeon with repeat x-rays on 08/29/2019. Job ID: [id number] [facility]
--- NOTE | 2019-08-27 08:49 | PRG ---
DATE OF SERVICE: 08/27/2019 SUBJECTIVE: The patient had a restless night early this morning. They had given additional hydrocodone, and with the application of the ice, she finally got comfortable and was able to go to sleep. This morning, she awoken and she is feeling better. OBJECTIVE: VITAL SIGNS: Show temperature 99.2, pulse 82, respirations 18, O2 saturation 93% on room air, blood pressure 118/55. LUNGS: Clear. HEART: Regular rate. EXTREMITIES: Right knee, a little effusion present on the knee. The knee immobilizer was a little loose, was tightened. ASSESSMENT: 1. Undisplaced fracture of the right medial femoral condyle secondary to a fall on 08/17/2019. a. Immobilized in a knee immobilizer. b. Nonweightbearing on the right leg. c. Activities very limited and pain reasonably controlled as of 08/27/2019. 2. Chronic anemia. a. Hemoglobin chronically around 9. b. Hemoglobin dropped from 8.6 on 08/17 to 7.2 on 08/18, secondary to acute blood loss from the fracture. c. Transfuse 1 unit of packed RBCs on 08/19 for drop in hemoglobin to 6.9. Hemoglobin 8.4 on 08/20. Hemoglobin on 08/22, 8.6. 3. Hypertension. 4. Coronary artery disease. Asymptomatic. 5. Hyperlipidemia. 6. Overactive bladder. 7. Spondylosis of the spine. PLAN: Keep the knee immobilizer snug, use the ice and p.r.n. Utilize her analgesics as necessary. Physical Therapy will continue to work with her, but no weightbearing on that right leg. The patient due to see the Orthopedic surgeon, Dr. Flanagan on 08/29/2019. Job ID: [id number] [facility]
[2019-08-27] MEDS: Polyethylene Glycol 3350 17 GM Packet PO SCH (09:41)
[2019-08-27] MEDS: Lisinopril 5 MG TAB PO SCH (09:42)
[2019-08-27] MEDS: Ferrous Gluconate 324 MG TAB PO SCH (09:42)
[2019-08-27] MEDS: Amlodipine 5 MG TAB PO SCH (09:42)
[2019-08-27] MEDS: DOXYLAMINE SUCCINATE 25 MG PO SCH (20:35)
[2019-08-27] MEDS: Atorvastatin Calcium 40 MG TAB PO SCH (20:35)
[2019-08-28] MEDS: HYDROcodone/Acetaminophen 5/325 mg Tablet PO PRN ×4 (04:58→20:02)
[2019-08-28] MEDS: Ferrous Gluconate 324 MG TAB PO SCH (09:23)
[2019-08-28] MEDS: Lisinopril 5 MG TAB PO SCH (09:23)
[2019-08-28] MEDS: Amlodipine 5 MG TAB PO SCH (09:23)
[2019-08-28] MEDS: Polyethylene Glycol 3350 17 GM Packet PO SCH (09:24)
--- NOTE | 2019-08-28 10:26 | PRG ---
DATE OF SERVICE: 08/28/2019 SUBJECTIVE: The patient says she is feeling all right today. She said she did not get up any yesterday, but will today. OBJECTIVE: GENERAL: The patient lying in bed, looks comfortable. VITAL SIGNS: Show a temperature of 98.9, pulse 79, respirations 14, O2 saturation 94% on room air, blood pressure 115/58. LUNGS: Clear. HEART: Regular rate. EXTREMITIES: Right leg, the patient has a knee immobilizer. There was an ice pack over the knee and then the knee immobilizer pulled over this. ASSESSMENT: 1. Undisplaced fracture of the right medial femoral condyle secondary to fall on 08/17/2019. a. Immobilized in knee immobilizer. b. Nonweightbearing on the right leg. c. Activities are very limited and pain reasonably controlled using ice and analgesics as of 08/28/2019. 2. Chronic anemia. a. Hemoglobin chronically around 9. b. Hemoglobin dropped from 8.6 on 08/17 to 7.2 on 08/18 secondary to acute blood loss from the fracture. c. Transfused 1 unit of packed RBCs on 08/19 for drop in hemoglobin to 6.9. Hemoglobin 8.4 on 08/20. Hemoglobin 8.6 on 08/22. 3. Hypertension. 4. Coronary artery disease, asymptomatic. 5. Hyperlipidemia. 6. Overactive bladder. 7. Spondylosis of the spine. PLAN: Encourage the patient to be up in a chair. Work with physical therapy. Due to see Dr. Flanagan tomorrow. Job ID: [id number]
[2019-08-28] MEDS: DOXYLAMINE SUCCINATE 25 MG PO SCH (20:03)
[2019-08-28] MEDS: Atorvastatin Calcium 40 MG TAB PO SCH (20:03)
[2019-08-29] MEDS: HYDROcodone/Acetaminophen 5/325 mg Tablet PO PRN ×4 (00:04→19:12)
[2019-08-29 05:38] LABS: Anion Gap 12 mmol/L (10-20); BUN (Urea Nitrogen) 13 mg/dL (9.8-20.1); Calc. Creatinine Clearance 53 mL/min (70-130); Calcium 8.8 mg/dL (7.8-10.44); Carbon Dioxide 28 mmol/L (23-31); Chloride 105 mmol/L (98-107); Estimated GFR-MDRD Greater than 90; Glucose 101 mg/dL (83-110); Potassium 4.1 mmol/L (3.5-5.1); Sodium 141 mmol/L (136-145)
[2019-08-29 06:03] LABS: Band 3 % (5-11); Burr Cells SLIGHT = 2-5 cells (100X) (0-1/hpf); Eosinophils 3 % (0-10); Hemoglobin 8.1 g/dL (12.0-16.0); Hypochromia SLIGHT = 6-15 cells (100X) (0-5/hpf); Large Platelets SLIGHT; Lymphocytes 25 % (21-51); MDiff Complete? YES; Mean Corpuscular HGB CONC 31.6 g/dL (32.0-36.0); Mean Corpuscular Hemoglobin 28.5 pg (27.0-31.0); Mean Corpuscular Volume 90.4 fL (78.0-98.0); Mean Platelet Volume 12.9 fL (7.4-10.4); Monocytes 14 % (0-10); Neutrophil 55 % (42-75); Platelet Count 242 thou/uL (130-400); RBC Distribution Width 19.4 % (11.5-14.5); Red Blood Cell (RBC) Count 2.82 mill/uL (4.20-5.40); Schistocytes SLIGHT = 2-5 cells (100X) (0-1/hpf); Target Cells SLIGHT = 2-5 cells (100X) (0-1/hpf); White Blood Cell (WBC) Count 5.5 thou/uL (4.8-10.8)
[2019-08-29] MEDS: Lisinopril 5 MG TAB PO SCH (07:49)
[2019-08-29] MEDS: Amlodipine 5 MG TAB PO SCH (07:49)
[2019-08-29] MEDS: Polyethylene Glycol 3350 17 GM Packet PO SCH (07:50)
[2019-08-29] MEDS: Ferrous Gluconate 324 MG TAB PO SCH (07:50)
--- NOTE | 2019-08-29 09:35 | PRG ---
DATE OF SERVICE: 08/29/2019 SUBJECTIVE: The patient feels better today. She is getting ready to go to see Dr. Flanagan. She will go there by wheelchair transfer vehicle, her rides with her, daughter will meet her over there. Yesterday, she spent a lot of time up in a chair and a wheelchair. OBJECTIVE: GENERAL: The patient presently lying in bed. She looks comfortable. She has her knee immobilizer on in the right leg. VITAL SIGNS: Show a temperature of 98.2, pulse 69, respirations 16, O2 saturations 93% on room air, blood pressure 137/61. LUNGS: Clear. HEART: Regular rate. EXTREMITIES: Right knee lower leg has no edema. There is a knee immobilizer in place on the right leg. ASSESSMENT: 1. Undisplaced fracture of the right medial femoral condyle secondary to a fall on 08/17/2019. a. Immobilized in a knee immobilizer. b. Nonweightbearing on the right leg. c. Pain controlled as of 08/29/2019. 2. Chronic anemia. a. Hemoglobin chronically in the 9s. b. Hemoglobin dropped from 8.6 on 08/17 to 7.2 on 08/18 secondary to acute blood loss from the fracture. c. Transfuse 1 unit of packed RBCs on 08/19 for drop in hemoglobin to 6.9. Hemoglobin 8.4 on 08/20. Hemoglobin 8.6 on 08/22. 3. Hypertension. 4. Coronary artery disease, asymptomatic. 5. Hyperlipidemia. 6. Overactive bladder. 7. Spondylosis of the spine. PLAN: Continue present care. Continue PT and OT. The patient to see Dr. Rojelio Flanagan, orthopedic surgeon today for his recommendations for further care. Job ID: [id number] MTDD
[2019-08-29] MEDS: DOXYLAMINE SUCCINATE 25 MG PO SCH (21:08)
[2019-08-29] MEDS: Atorvastatin Calcium 40 MG TAB PO SCH (21:09)
[2019-08-30] MEDS: HYDROcodone/Acetaminophen 5/325 mg Tablet PO PRN ×5 (03:08→20:55)
[2019-08-30] MEDS: Ferrous Gluconate 324 MG TAB PO SCH (09:20)
[2019-08-30] MEDS: Lisinopril 5 MG TAB PO SCH (09:21)
--- NOTE | 2019-08-30 09:21 | PRG ---
DATE OF SERVICE: 08/30/2019 SUBJECTIVE: The patient says she is doing better. She did see Dr. Flanagan yesterday, who has placed her in a hinged knee immobilizer and has recommended continued nonweightbearing. He felt that she has a periprosthetic fracture of the left distal femoral medial condyle and feels like this can continue to be managed non operatively. OBJECTIVE: GENERAL: The patient is lying in bed, looks comfortable. She appears in no distress. VITAL SIGNS: Show a temperature 99.4, pulse 77, respirations 16, O2 saturation 93% on room air, blood pressure 118/58. LUNGS: Clear. HEART: Regular rate. EXTREMITIES: Right leg is in a long leg hinged knee immobilizer. The knee has a small effusion present. There is no edema of the lower leg. LABORATORY DATA: Her lab yesterday showed a hemoglobin of 8.1 and 25.5, platelet count 242,000 sodium of 141, potassium 4.1, BUN 13, creatinine 0.59, glucose 101. ASSESSMENT: 1. Undisplaced periprostatic fracture of the right medial femoral condyle secondary to a fall on 08/17/2019. a. Initially immobilized in a knee immobilizer with nonweightbearing. b. Visit with orthopedic surgeon Dr. Rojelio Flanagan on 08/29 with repeat x-rays. Recommended continued nonweightbearing, continued nonoperative management and placed her in a hinged knee immobilizer with 0 to 30 degrees of motion. c. Pain controlled as of 08/30. 2. Chronic anemia. a. Hemoglobin chronically in the 9s. b. Hemoglobin dropped from 8.6 on 08/17 to 7.2 on 08/18 secondary to acute blood loss from the fracture. Transfuse 1 unit of packed red blood cells on 08/19 for drop in hemoglobin to 6.9. Hemoglobin 8.4 on 08/20. Hemoglobin 8.6 on 08/22. Hemoglobin 8.1 on 08/29. 3. Hypertension. 4. Coronary artery disease, asymptomatic. 5. Hyperlipidemia. 6. Overactive bladder. 7. Spondylosis of the spine. PLAN: Continue PT/OT. The patient now in a long leg hinged knee immobilizer. This knee brace is set at 0-30 degrees. Continue nonweightbearing. The patient will be seen in followup by Dr. Rojelio Flanagan in one month, that will be around September 29. Continue PT and OT. Continue iron supplementation. Job ID: [id number] MTDD
[2019-08-30] MEDS: Amlodipine 5 MG TAB PO SCH (09:22)
[2019-08-30] MEDS: Polyethylene Glycol 3350 17 GM Packet PO SCH (09:22)
[2019-08-30] MEDS: Atorvastatin Calcium 40 MG TAB PO SCH (20:53)
[2019-08-30] MEDS: DOXYLAMINE SUCCINATE 25 MG PO SCH (20:54)
[2019-08-30] MEDS: Acetaminophen 325 MG TAB PO PRN (23:58)
[2019-08-31] MEDS: HYDROcodone/Acetaminophen 5/325 mg Tablet PO PRN ×4 (03:38→22:11)
[2019-08-31] MEDS: Ferrous Gluconate 324 MG TAB PO SCH (08:48)
[2019-08-31] MEDS: Lisinopril 5 MG TAB PO SCH (08:50)
[2019-08-31] MEDS: Amlodipine 5 MG TAB PO SCH (08:50)
[2019-08-31] MEDS: Polyethylene Glycol 3350 17 GM Packet PO SCH (08:50)
[2019-08-31] MEDS: Atorvastatin Calcium 40 MG TAB PO SCH (22:11)
[2019-08-31] MEDS: DOXYLAMINE SUCCINATE 25 MG PO SCH (22:12)
[2019-09-01] MEDS: Ferrous Gluconate 324 MG TAB PO SCH (08:27)
[2019-09-01] MEDS: Polyethylene Glycol 3350 17 GM Packet PO SCH (08:27)
[2019-09-01] MEDS: Amlodipine 5 MG TAB PO SCH (08:27)
[2019-09-01] MEDS: Lisinopril 5 MG TAB PO SCH (08:27)
[2019-09-01] MEDS: HYDROcodone/Acetaminophen 5/325 mg Tablet PO PRN ×2 (11:59→18:04)
[2019-09-01] MEDS: Atorvastatin Calcium 40 MG TAB PO SCH (21:25)
[2019-09-01] MEDS: DOXYLAMINE SUCCINATE 25 MG PO SCH (21:25)
[2019-09-01] MEDS: Acetaminophen 325 MG TAB PO PRN (21:25)
[2019-09-02] MEDS: HYDROcodone/Acetaminophen 5/325 mg Tablet PO PRN ×4 (00:25→21:17)
[2019-09-02] MEDS: Ferrous Gluconate 324 MG TAB PO SCH (07:59)
[2019-09-02] MEDS: Lisinopril 5 MG TAB PO SCH (07:59)
[2019-09-02] MEDS: Amlodipine 5 MG TAB PO SCH (07:59)
[2019-09-02] MEDS: Polyethylene Glycol 3350 17 GM Packet PO SCH (08:00)
[2019-09-02] MEDS: Atorvastatin Calcium 40 MG TAB PO SCH (21:16)
[2019-09-02] MEDS: DOXYLAMINE SUCCINATE 25 MG PO SCH (22:24)
[2019-09-03] MEDS: HYDROcodone/Acetaminophen 5/325 mg Tablet PO PRN ×3 (07:00→18:01)
[2019-09-03] MEDS: Ferrous Gluconate 324 MG TAB PO SCH (09:01)
[2019-09-03] MEDS: Polyethylene Glycol 3350 17 GM Packet PO SCH (09:01)
[2019-09-03] MEDS: Lisinopril 5 MG TAB PO SCH (09:02)
[2019-09-03] MEDS: Amlodipine 5 MG TAB PO SCH (09:02)
[2019-09-03] MEDS: Acetaminophen 325 MG TAB PO PRN (20:32)
[2019-09-03] MEDS: Atorvastatin Calcium 40 MG TAB PO SCH (20:32)
[2019-09-03] MEDS: DOXYLAMINE SUCCINATE 25 MG PO SCH (21:28)
[2019-09-04] MEDS: HYDROcodone/Acetaminophen 5/325 mg Tablet PO PRN ×3 (01:19→18:40)
[2019-09-04] MEDS: Acetaminophen 325 MG TAB PO PRN ×2 (06:01→21:50)
[2019-09-04] MEDS: Polyethylene Glycol 3350 17 GM Packet PO SCH (08:15)
[2019-09-04] MEDS: Lisinopril 5 MG TAB PO SCH (08:15)
[2019-09-04] MEDS: Ferrous Gluconate 324 MG TAB PO SCH (08:16)
[2019-09-04] MEDS: Amlodipine 5 MG TAB PO SCH (08:16)
--- NOTE | 2019-09-04 10:54 | PRG ---
DATE OF SERVICE: 09/03/2019 SUBJECTIVE: The patient said she had a restless night. Her leg was sore this morning. She feels a little better. OBJECTIVE: GENERAL: The patient is lying in bed, alert, is not any acute distress. VITAL SIGNS: Show temperature of 99.3, pulse 88, respirations 20, O2 saturations 95% on room air, blood pressure 156/71. LUNGS: Clear. HEART: Regular rate. EXTREMITIES: Right leg; the patient has a hinged knee immobilizer that fits well. There is a small effusion on the knee, overall smaller than what it was. There is no swelling in the lower leg. ASSESSMENT: 1. Undisplaced periprostatic fracture of the right medial femoral condyle secondary to a fall on 08/17/2019. a. Initially immobilized in a knee immobilizer with nonweightbearing. b. Visit with orthopedic surgeon Dr. Rojelio Flanagan on 08/29 with repeat x-rays. Recommended continued nonweightbearing, continued nonoperative management and placed her in a hinged knee immobilizer with 0 to 30 degrees of motion. c. Pain controlled as of 08/30. d. Stable, remains nonweightbearing on the right leg with hinged knee immobilizer. Pain reasonably controlled as of 09/03. 2. Chronic anemia. a. Hemoglobin chronically in the 9s. b. Hemoglobin dropped from 8.6 on 08/17 to 7.2 on 08/18 secondary to acute blood loss from the fracture. Transfuse 1 unit of packed red blood cells on 08/19 for drop in hemoglobin to 6.9. Hemoglobin 8.4 on 08/20. Hemoglobin 8.6 on 08/22. Hemoglobin 8.1 on 08/29. 3. Hypertension. 4. Coronary artery disease, asymptomatic. 5. Hyperlipidemia. 6. Overactive bladder. 7. Spondylosis of the spine. PLAN: Continue present care. Continue PT and OT. [facility] ID: [id number] [facility]
--- NOTE | 2019-09-04 10:54 | PRG ---
DATE OF SERVICE: 09/04/2019 SUBJECTIVE: The patient said she is doing okay this morning. She was able to transfer herself from bed to her chair without help this morning. She did no weightbearing with the right leg. OBJECTIVE: GENERAL: The patient is alert, appears in no distress. VITAL SIGNS: Show a temperature was 99.4, last evening; her pulse 87; blood pressure 156/71, respirations 20, and O2 saturation 95% on room air. LUNGS: Clear. HEART: Regular rate. EXTREMITIES: Right leg, knee immobilized in a hinged knee immobilizer. There is no distal edema. ASSESSMENT: 1. Undisplaced periprostatic fracture of the right medial femoral condyle secondary to a fall on 08/17/2019. a. Initially immobilized in a knee immobilizer with nonweightbearing. b. Visit with orthopedic surgeon Dr. Rojelio Flanagan on 08/29 with repeat x-rays. Recommended continued nonweightbearing, continued nonoperative management and placed her in a hinged knee immobilizer with 0 to 30 degrees of motion. c. Pain controlled as of 09/04. d. Able to transfer herself from bed to a chair with just standby assistance as of 09/04/2019. 2. Chronic anemia. a. Hemoglobin chronically in the 9s. b. Hemoglobin dropped from 8.6 on 08/17 to 7.2 on 08/18 secondary to acute blood loss from the fracture. Transfuse 1 unit of packed red blood cells on for drop in hemoglobin to 6.9. Hemoglobin 8.4 on 08/20. Hemoglobin 8.6 on 08/22. Hemoglobin 8.1 on . 3. Hypertension. 4. Coronary artery disease, asymptomatic. 5. Hyperlipidemia. 6. Overactive bladder. 7. Spondylosis of the spine. PLAN: We will continue present care. Continue PT and OT. Job ID: [id number] [facility]TDD
--- NOTE | 2019-09-04 10:55 | PRG ---
DATE OF SERVICE: 09/02/2019 SUBJECTIVE: The patient said she is feeling better this morning. She is sitting up in her bed. She has finished her breakfast. OBJECTIVE: GENERAL: The patient looks much better. She looks comfortable. VITAL SIGNS: Show a temperature of 97.5, pulse 82, respirations 16, O2 saturations 92% on room air, blood pressure is 132/64. LUNGS: Clear. HEART: Regular rate. EXTREMITIES: Right leg, there is no swelling in the distal leg. The effusion of the knee is much smaller. The knee seems well stabilized and comfortable in the hinged knee immobilizer. ASSESSMENT: 1. Undisplaced periprostatic fracture of the right medial femoral condyle secondary to a fall on 08/17/2019. a. Initially immobilized in a knee immobilizer with nonweightbearing. b. Visit with orthopedic surgeon Dr. Rojelio Flanagan on 08/29 with repeat x-rays. Recommended continued nonweightbearing, continued nonoperative management and placed her in a hinged knee immobilizer with 0 to 30 degrees of motion. c. Stable. Pain controlled as of 09/02. 2. Chronic anemia. a. Hemoglobin chronically in the 9s. b. Hemoglobin dropped from 8.6 on 08/17 to 7.2 on 08/18 secondary to acute blood loss from the fracture. Transfuse 1 unit of packed red blood cells on for drop in hemoglobin to 6.9. Hemoglobin 8.4 on 08/20. Hemoglobin 8.6 on 08/22. Hemoglobin 8.1 on . 3. Hypertension. 4. Coronary artery disease, asymptomatic. 5. Hyperlipidemia. 6. Overactive bladder. 7. Spondylosis of the spine. PLAN: Continue present care. Continue PT and OT. Job ID: [id number] [facility]TDD
--- NOTE | 2019-09-04 10:57 | PRG ---
DATE OF SERVICE: 08/31/2019 SUBJECTIVE: The patient says she is doing okay today. Yesterday, she got up quite a bit and plans on doing more today. She is still sore in that right knee and trying to get used to the brace. OBJECTIVE: GENERAL: The patient is lying in bed. She is alert, appears comfortable. VITAL SIGNS: Her temp is 98.6, pulse 72, respirations 16, O2 saturation 97% on room air, blood pressure 132/64. LUNGS: Clear. HEART: Regular rate. EXTREMITIES: Lower extremities, no edema. Right knee, there is a small effusion present. The patient is wearing the hinge, knee immobilizer. ASSESSMENT: 1. Undisplaced periprostatic fracture of the right medial femoral condyle secondary to a fall on 08/17/2019. a. Initially immobilized in a knee immobilizer with nonweightbearing. b. Visit with orthopedic surgeon Dr. Rojelio Flanagan on 08/29 with repeat x-rays. Recommended continued nonweightbearing, continued nonoperative management and placed her in a hinged knee immobilizer with 0 to 30 degrees of motion. c. Pain controlled as of 08/31. 2. Chronic anemia. a. Hemoglobin chronically in the 9s. b. Hemoglobin dropped from 8.6 on 08/17 to 7.2 on 08/18 secondary to acute blood loss from the fracture. Transfuse 1 unit of packed red blood cells on for drop in hemoglobin to 6.9. Hemoglobin 8.4 on 08/20. Hemoglobin 8.6 on 08/22. Hemoglobin 8.1 on . 3. Hypertension. 4. Coronary artery disease, asymptomatic. 5. Hyperlipidemia. 6. Overactive bladder. 7. Spondylosis of the spine. PLAN: Continue present care. Continue PT and OT. Job ID: [id number] [facility]TDD
[2019-09-04] MEDS: DOXYLAMINE SUCCINATE 25 MG PO SCH (21:46)
[2019-09-04] MEDS: Atorvastatin Calcium 40 MG TAB PO SCH (21:46)
[2019-09-05] MEDS: Acetaminophen 325 MG TAB PO PRN ×2 (02:56→15:33)
[2019-09-05] MEDS: HYDROcodone/Acetaminophen 5/325 mg Tablet PO PRN (05:40)
[2019-09-05] MEDS: Lisinopril 5 MG TAB PO SCH (08:32)
[2019-09-05] MEDS: Amlodipine 5 MG TAB PO SCH (08:32)
[2019-09-05] MEDS: Ferrous Gluconate 324 MG TAB PO SCH (08:33)
[2019-09-05] MEDS: Polyethylene Glycol 3350 17 GM Packet PO SCH (08:33)
[2019-09-05] MEDS: DOXYLAMINE SUCCINATE 25 MG PO SCH (20:36)
[2019-09-05] MEDS: Atorvastatin Calcium 40 MG TAB PO SCH (20:36)
[2019-09-06] MEDS: Acetaminophen 325 MG TAB PO PRN (01:40)
[2019-09-06] MEDS: HYDROcodone/Acetaminophen 5/325 mg Tablet PO PRN ×3 (06:12→20:25)
[2019-09-06] MEDS: Amlodipine 5 MG TAB PO SCH (08:29)
[2019-09-06] MEDS: Polyethylene Glycol 3350 17 GM Packet PO SCH (08:30)
[2019-09-06] MEDS: Ferrous Gluconate 324 MG TAB PO SCH (08:30)
[2019-09-06] MEDS: Lisinopril 5 MG TAB PO SCH (08:30)
--- NOTE | 2019-09-06 10:04 | PRG ---
DATE OF SERVICE: 09/06/2019 SUBJECTIVE: The patient is up in her geriatric chair with the leg supported. Right now, for a just short period, has the brace off and she has an ice pack on the knee. She is very comfortable. OBJECTIVE: VITAL SIGNS: Show temperature of 97.7, pulse 98, respirations 16, O2 saturation 96% on room air, and blood pressure 109/56. LUNGS: Clear. HEART: Regular rate. EXTREMITIES: Right leg, there is no edema. The patient's effusion is resolving on the right knee. ASSESSMENT: 1. Undisplaced periprostatic fracture of the right medial femoral condyle secondary to a fall on 08/17/2019. a. Initially immobilized in a knee immobilizer with nonweightbearing. b. Visit with orthopedic surgeon Dr. Rojelio Flanagan on 08/29 with repeat x-rays. Recommended continued nonweightbearing, continued nonoperative management and placed her in a hinged knee immobilizer with 0 to 30 degrees of motion. c. Pain controlled as of 09/06. 2. Chronic anemia. a. Hemoglobin chronically in the 9s. b. Hemoglobin dropped from 8.6 on 08/17 to 7.2 on 08/18 secondary to acute blood loss from the fracture. Transfuse 1 unit of packed red blood cells on for drop in hemoglobin to 6.9. Hemoglobin 8.4 on 08/20. Hemoglobin 8.6 on 08/22. Hemoglobin 8.1 on . 3. Hypertension. 4. Coronary artery disease, asymptomatic. 5. Hyperlipidemia. 6. Overactive bladder. 7. Spondylosis of the spine. PLAN: Continue present care. We will recheck CBC in the morning. Job ID: [id number] [facility]
[2019-09-06] MEDS: DOXYLAMINE SUCCINATE 25 MG PO SCH (20:27)
[2019-09-06] MEDS: Atorvastatin Calcium 40 MG TAB PO SCH (20:27)
[2019-09-07] MEDS: HYDROcodone/Acetaminophen 5/325 mg Tablet PO PRN ×4 (01:54→20:54)
[2019-09-07] MEDS: Polyethylene Glycol 3350 17 GM Packet PO SCH (09:07)
[2019-09-07] MEDS: Amlodipine 5 MG TAB PO SCH (09:08)
[2019-09-07] MEDS: Ferrous Gluconate 324 MG TAB PO SCH (09:08)
[2019-09-07] MEDS: Lisinopril 5 MG TAB PO SCH (09:08)
--- NOTE | 2019-09-07 11:54 | PRG ---
DATE OF SERVICE: 09/07/2019 SUBJECTIVE: This morning, the patient is back in the physical therapy room. She is in a wheelchair, she has been doing upper body strengthening exercise. She feels good this morning, had no complaint. OBJECTIVE: VITAL SIGNS: Temperature 97.3, pulse 71, respirations 20, O2 saturation 97% on room air, and blood pressure 143/67. LUNGS: Clear. HEART: Regular rate. EXTREMITIES: No edema. Right leg is immobilized in the long-leg metal hinged knee immobilizer. ASSESSMENT: 1. Undisplaced periprosthetic fracture of the right medial femoral condyle secondary to a fall on 08/17/2019. a. Initially, immobilized in a knee immobilizer and placed on nonweightbearing. b. Visit with orthopedic surgeon, Dr. Rojelio Flanagan on 08/29 with repeat x-rays. Fracture stable, nondisplaced. Placed in a long leg hinged knee immobilizer with 0 to 3 degrees of motion on 08/29/2019. Remains nonweightbearing on the right. c. Pain controlled as of 09/07. 2. Chronic anemia. a. Hemoglobin chronically is in the 9s. b. Hemoglobin dropped from 8.6 on 08/17 to 7.2 on 08/18, secondary to acute blood loss from fracture. Transfused 1 unit of packed RBCs on 08/19 for drop in hemoglobin of 6.9. Hemoglobin 8.4 on 08/20. Hemoglobin 8.6 on 08/22. Hemoglobin 8.1 on 08/29. 3. Hypertension. 4. Coronary artery disease, asymptomatic. 5. Hyperlipidemia. 6. Overactive bladder. 7. Spondylosis of the spine. The patient is making slow, gradual progress. She is tolerating being up for longer periods in a chair. Strengthening upper body improving. Continue with knee immobilizer. Continue nonweightbearing. The patient due back to see Dr. Flanagan around the mid September. Job ID: [id number] [facility]
[2019-09-07] MEDS: Atorvastatin Calcium 40 MG TAB PO SCH (20:54)
[2019-09-07] MEDS: DOXYLAMINE SUCCINATE 25 MG PO SCH (22:13)
[2019-09-08] MEDS: HYDROcodone/Acetaminophen 5/325 mg Tablet PO PRN ×3 (07:19→21:08)
[2019-09-08] MEDS: Polyethylene Glycol 3350 17 GM Packet PO SCH (09:15)
[2019-09-08] MEDS: Amlodipine 5 MG TAB PO SCH (09:16)
[2019-09-08] MEDS: Ferrous Gluconate 324 MG TAB PO SCH (09:16)
[2019-09-08] MEDS: Lisinopril 5 MG TAB PO SCH (09:16)
[2019-09-08] MEDS: DOXYLAMINE SUCCINATE 25 MG PO SCH (21:09)
[2019-09-08] MEDS: Atorvastatin Calcium 40 MG TAB PO SCH (21:09)
[2019-09-09] MEDS: HYDROcodone/Acetaminophen 5/325 mg Tablet PO PRN ×3 (04:02→21:09)
[2019-09-09] MEDS: Amlodipine 5 MG TAB PO SCH (08:40)
[2019-09-09] MEDS: Ferrous Gluconate 324 MG TAB PO SCH (08:40)
[2019-09-09] MEDS: Polyethylene Glycol 3350 17 GM Packet PO SCH (08:40)
[2019-09-09] MEDS: Lisinopril 5 MG TAB PO SCH (08:41)
[2019-09-09] MEDS: Atorvastatin Calcium 40 MG TAB PO SCH (20:37)
[2019-09-09] MEDS: DOXYLAMINE SUCCINATE 25 MG PO SCH (20:38)
[2019-09-10] MEDS: HYDROcodone/Acetaminophen 5/325 mg Tablet PO PRN ×3 (06:11→18:09)
[2019-09-10] MEDS: Ferrous Gluconate 324 MG TAB PO SCH (08:26)
[2019-09-10] MEDS: Amlodipine 5 MG TAB PO SCH (08:26)
[2019-09-10] MEDS: Lisinopril 5 MG TAB PO SCH (08:27)
[2019-09-10] MEDS: Polyethylene Glycol 3350 17 GM Packet PO SCH (08:29)
--- NOTE | 2019-09-10 09:18 | PRG ---
DATE OF SERVICE: 09/10/2019 SUBJECTIVE: The patient said she is doing good this morning. She had no complaint. OBJECTIVE: GENERAL: The patient is sitting up in bed. She is smiling, appears very comfortable, in no distress. VITAL SIGNS: Temperature 97.3, pulse 84, respirations 18, O2 saturation 94% on room air, blood pressure 138/60. LUNGS: Clear. HEART: Regular rate. EXTREMITIES: Right leg is in a long-leg metal hinged knee immobilizer and fits well. ASSESSMENT: 1. Undisplaced periprosthetic fracture of the right medial femoral condyle secondary to a fall on 08/17/2019. a. Initially managed by immobilization of the knee in an immobilizer and nonweightbearing on the right leg. b. Visited with orthopedic surgeon, Dr. Rojelio Flanagan on 08/29 with repeat x-ray. Fracture, stable, nondisplaced. Placed in a long leg hinged knee immobilizer with 0 to 30 degrees of motion. Remains nonweightbearing. c. Pain controlled as of 09/10. 2. Chronic anemia. a. Hemoglobin chronically is in the 9s. b. Hemoglobin dropped from 8.6 on 08/17 to 7.2 on 08/18, secondary to acute blood loss. Hemoglobin 6.9 on 08/19. Transfused 1 unit of blood. Hemoglobin 8.4 on 08/20. Hemoglobin 8.6 on 08/22. Hemoglobin 8.1 on 08/29. 3. Hypertension. 4. Coronary artery disease, asymptomatic. 5. Hyperlipidemia. 6. Overactive bladder. 7. Spondylosis of the spine. PLAN: The patient's overall strength is improving. Her pain seemed to be well controlled. She is still nonweightbearing on the right leg. We will continue PT, OT. Recheck CBC and basic metabolic panel in the morning. Job ID: [id number] [facility]TDD
[2019-09-10] MEDS: Atorvastatin Calcium 40 MG TAB PO SCH (20:18)
[2019-09-11] MEDS: DOXYLAMINE SUCCINATE 25 MG PO SCH ×2 (00:51→21:24)
[2019-09-11] MEDS: HYDROcodone/Acetaminophen 5/325 mg Tablet PO PRN ×3 (02:39→15:50)
[2019-09-11 06:02] LABS: Anion Gap 11 mmol/L (10-20); BUN (Urea Nitrogen) 19 mg/dL (9.8-20.1); Calc. Creatinine Clearance 49 mL/min (70-130); Carbon Dioxide 28 mmol/L (23-31); Chloride 103 mmol/L (98-107); Estimated GFR-MDRD 88; Glucose 101 mg/dL (83-110); Potassium 4.3 mmol/L (3.5-5.1); Sodium 138 mmol/L (136-145)
[2019-09-11 06:05] LABS: #Basophils 0.1 thou/uL (0.0-0.2); #Eosinphils 0.2 thou/uL (0.0-0.7); #Lymphocytes 1.2 thou/uL (1.20-3.40); #Monocytes 0.5 thou/uL (0.11-0.59); #Neutrophils 3.8 thou/uL (1.40-6.50); %Basophils 2.3 % (0.0-1.0); %Eosinophils 2.9 % (0.0-10.0); %Lymphocytes 21.1 % (21.0-51.0); %Neutrophils 65.7 % (42.0-75.0); Anisocytosis MARKED = >30 cells (100X) (0-5/hpf); Hemoglobin 7.5 g/dL (12.0-16.0); Large Platelets SLIGHT; MDiff Complete? YES; Mean Corpuscular HGB CONC 31.9 g/dL (32.0-36.0); Mean Corpuscular Hemoglobin 28.3 pg (27.0-31.0); Mean Corpuscular Volume 88.8 fL (78.0-98.0); Mean Platelet Volume 12.2 fL (7.4-10.4); Platelet Count 288 thou/uL (130-400); Platelet Morphology Comment Appears Adequate; RBC Distribution Width 19.7 % (11.5-14.5); Red Blood Cell (RBC) Count 2.64 mill/uL (4.20-5.40); Target Cells SLIGHT = 2-5 cells (100X) (0-1/hpf); White Blood Cell (WBC) Count 5.8 thou/uL (4.8-10.8)
[2019-09-11] MEDS: Amlodipine 5 MG TAB PO SCH (08:56)
[2019-09-11] MEDS: Lisinopril 5 MG TAB PO SCH (08:56)
[2019-09-11] MEDS: Polyethylene Glycol 3350 17 GM Packet PO SCH (08:56)
[2019-09-11] MEDS: Ferrous Gluconate 324 MG TAB PO SCH (08:56)
[2019-09-11] MEDS: Atorvastatin Calcium 40 MG TAB PO SCH (20:27)
[2019-09-12] MEDS: HYDROcodone/Acetaminophen 5/325 mg Tablet PO PRN ×3 (01:26→18:30)
[2019-09-12] MEDS: Amlodipine 5 MG TAB PO SCH (08:45)
[2019-09-12] MEDS: Lisinopril 5 MG TAB PO SCH (08:46)
[2019-09-12] MEDS: Polyethylene Glycol 3350 17 GM Packet PO SCH (08:46)
[2019-09-12] MEDS: Ferrous Gluconate 324 MG TAB PO SCH ×3 (08:48→20:23)
--- NOTE | 2019-09-12 09:05 | PRG ---
DATE OF SERVICE: 09/12/2019 SUBJECTIVE: The patient says she is doing okay. She is up in a Bindu chair preparing to eat her breakfast. OBJECTIVE: VITAL SIGNS: Her temperature is 98.4, pulse 77, respirations 16, O2 saturation 93% on room air, and blood pressure 126/64. LUNGS: Clear. HEART: Regular rate. EXTREMITIES: Lower extremities, no edema. Right knee well immobilized in a metal-hinged knee immobilizer. ASSESSMENT: 1. Nondisplaced periprosthetic fracture of the right medial femoral condyle secondary to a fall on 08/17/2019. a. Initially managed by immobilization of the knee in an immobilizer and nonweightbearing on the right leg. b. Visit with Dr. Rojelio Flanagan, orthopedic surgeon, on 08/29 with repeat x-ray had showed stable fracture, nondisplacement. Placed on a long leg hinged knee immobilizer with 0 to 30 degrees motion. Remains nonweightbearing. c. Gradual improvement, pain seemed to be controlled, still requiring the hydrocodone as of 09/12. 2. Chronic anemia. a. Hemoglobin chronically is in the 9s. b. Hemoglobin dropped from 8.6 on 08/17 to 7.2 on 08/18, secondary to acute blood loss. Hemoglobin 6.9 on 08/19. Transfused 1 unit of blood. Hemoglobin 8.4 on 08/20. Hemoglobin 8.6 on 08/22. Hemoglobin 8.1 on 08/29. Hemoglobin 7.5 on 09/11. 3. Hypertension. 4. Coronary artery disease, asymptomatic. 5. Hyperlipidemia. 6. Overactive bladder. 7. Spondylosis. PLAN: Continue present care. Continue PT. Continue monitoring of CBC. Continue iron supplementation, we will increase this to twice a day. [facility] [id number] [facility]
[2019-09-12] MEDS: Atorvastatin Calcium 40 MG TAB PO SCH (20:23)
[2019-09-12] MEDS: Acetaminophen 325 MG TAB PO PRN (20:23)
[2019-09-12] MEDS: DOXYLAMINE SUCCINATE 25 MG PO SCH (20:26)
[2019-09-13] MEDS: HYDROcodone/Acetaminophen 5/325 mg Tablet PO PRN ×3 (02:45→17:43)
[2019-09-13 06:03] LABS: #Basophils 0.1 thou/uL (0.0-0.2); #Eosinphils 0.2 thou/uL (0.0-0.7); #Lymphocytes 1.3 thou/uL (1.20-3.40); #Monocytes 0.5 thou/uL (0.11-0.59); #Neutrophils 1.9 thou/uL (1.40-6.50); %Eosinophils 3.8 % (0.0-10.0); %Lymphocytes 33.6 % (21.0-51.0); %Monocytes 12.7 % (0.0-10.0); %Neutrophils 47.9 % (42.0-75.0); Anisocytosis MODERATE=16-30 cells (100X) (0-5/hpf); Burr Cells SLIGHT = 2-5 cells (100X) (0-1/hpf); Hemoglobin 7.2 g/dL (12.0-16.0); Hypochromia SLIGHT = 6-15 cells (100X) (0-5/hpf); Large Platelets MODERATE; MDiff Complete? YES; Mean Corpuscular HGB CONC 30.4 g/dL (32.0-36.0); Mean Corpuscular Hemoglobin 27.6 pg (27.0-31.0); Mean Corpuscular Volume 90.7 fL (78.0-98.0); Mean Platelet Volume 11.3 fL (7.4-10.4); Platelet Count 275 thou/uL (130-400); RBC Distribution Width 19.3 % (11.5-14.5); Red Blood Cell (RBC) Count 2.62 mill/uL (4.20-5.40); Target Cells MODERATE= 6-15 cells (100X) (0-1/hpf); White Blood Cell (WBC) Count 3.9 thou/uL (4.8-10.8)
[2019-09-13] MEDS: Lisinopril 5 MG TAB PO SCH (08:32)
[2019-09-13] MEDS: Amlodipine 5 MG TAB PO SCH (08:32)
[2019-09-13] MEDS: Ferrous Gluconate 324 MG TAB PO SCH ×2 (08:32→20:39)
[2019-09-13] MEDS: Polyethylene Glycol 3350 17 GM Packet PO SCH (08:32)
--- NOTE | 2019-09-13 08:48 | PRG ---
DATE OF SERVICE: 09/13/2019 SUBJECTIVE: The patient says she is feeling good today. She said she continues to work with physical therapy and trying. Overall, she is feeling better. OBJECTIVE: GENERAL: The patient is sitting up in bed, alert, talkative, appears very comfortable. VITAL SIGNS: Her temperature is 98.1, pulse 72, respirations 18, O2 saturation 95% on room air, and blood pressure 119/55. LUNGS: Clear. HEART: Regular rate. EXTREMITIES: No edema. LABORATORY DATA: Her hemoglobin is 7.2. ASSESSMENT: 1. Nondisplaced periprosthetic fracture of the right medial femoral condyle secondary to a fall on 08/17/2019. a. Initially managed by immobilization of the knee in an immobilizer and nonweightbearing on the right. b. Visit with her orthopedic surgeon, Dr. Rojelio Flanagan, on 08/29 with repeat x-ray showed stable fracture and no displacement. Placed in a long leg hinged immobilizer with 0 to 30 degrees of motion. Remains nonweightbearing. c. Gradual improvement. Pain controlled. 2. Chronic anemia. a. Hemoglobin chronically in the 9s. b. Hemoglobin dropped from 8.6 on 08/17 to 7.2 on 08/18 secondary to acute blood loss from the fracture. Hemoglobin 6.9 on 08/19. Transfused 1 unit of blood. Hemoglobin 8.4 on 08/20. Hemoglobin 8.8 on 08/22. Hemoglobin 8.1 on . Hemoglobin 8.5 on 09/11. Hemoglobin 7.2 on 09/13. 3. Hypertension. 4. Coronary artery disease, asymptomatic. 5. Hyperlipidemia. 6. Overactive bladder. 7. Spondylosis. PLAN: Continue PT/OT. Continue to monitor the CBC. If drops below 7, we will transfuse a unit of blood. Job ID: [id number] [facility]TDD
[2019-09-13] MEDS: Atorvastatin Calcium 40 MG TAB PO SCH (20:39)
[2019-09-14] MEDS: Acetaminophen 325 MG TAB PO PRN (01:03)
[2019-09-14] MEDS: DOXYLAMINE SUCCINATE 25 MG PO SCH ×2 (01:04→22:23)
[2019-09-14] MEDS: HYDROcodone/Acetaminophen 5/325 mg Tablet PO PRN ×3 (05:58→19:50)
[2019-09-14] MEDS: Lisinopril 5 MG TAB PO SCH (09:07)
[2019-09-14] MEDS: Polyethylene Glycol 3350 17 GM Packet PO SCH (09:08)
[2019-09-14] MEDS: Amlodipine 5 MG TAB PO SCH (09:08)
[2019-09-14] MEDS: Ferrous Gluconate 324 MG TAB PO SCH ×2 (09:08→19:49)
[2019-09-14] MEDS: Atorvastatin Calcium 40 MG TAB PO SCH (19:49)
[2019-09-15 05:45] LABS: #Basophils 0.1 thou/uL (0.0-0.2); #Eosinphils 0.2 thou/uL (0.0-0.7); #Monocytes 0.6 thou/uL (0.11-0.59); #Neutrophils 2.4 thou/uL (1.40-6.50); %Basophils 2.3 % (0.0-1.0); %Eosinophils 4.1 % (0.0-10.0); %Lymphocytes 23.5 % (21.0-51.0); %Neutrophils 57.1 % (42.0-75.0); Anisocytosis MODERATE=16-30 cells (100X) (0-5/hpf); Hemoglobin 7.3 g/dL (12.0-16.0); MDiff Complete? YES; Mean Corpuscular Hemoglobin 27.1 pg (27.0-31.0); Mean Corpuscular Volume 90.3 fL (78.0-98.0); Mean Platelet Volume 11.8 fL (7.4-10.4); Ovalocytes SLIGHT = 2-5 cells (100X) (0-1/hpf); Platelet Count 257 thou/uL (130-400); RBC Distribution Width 19.6 % (11.5-14.5); Red Blood Cell (RBC) Count 2.68 mill/uL (4.20-5.40); Target Cells MODERATE= 6-15 cells (100X) (0-1/hpf); White Blood Cell (WBC) Count 4.3 thou/uL (4.8-10.8)
[2019-09-15] MEDS: Ferrous Gluconate 324 MG TAB PO SCH ×2 (08:20→21:19)
[2019-09-15] MEDS: Amlodipine 5 MG TAB PO SCH (08:20)
[2019-09-15] MEDS: Lisinopril 5 MG TAB PO SCH (08:20)
[2019-09-15] MEDS: Polyethylene Glycol 3350 17 GM Packet PO SCH (08:21)
[2019-09-15] MEDS: HYDROcodone/Acetaminophen 5/325 mg Tablet PO PRN (14:16)
[2019-09-15] MEDS: Acetaminophen 325 MG TAB PO PRN (19:34)
[2019-09-15] MEDS: Atorvastatin Calcium 40 MG TAB PO SCH (21:19)
[2019-09-15] MEDS: DOXYLAMINE SUCCINATE 25 MG PO SCH (23:20)
[2019-09-16] MEDS: HYDROcodone/Acetaminophen 5/325 mg Tablet PO PRN ×2 (01:49→07:55)
[2019-09-16] MEDS: Lisinopril 5 MG TAB PO SCH (07:54)
[2019-09-16] MEDS: Ferrous Gluconate 324 MG TAB PO SCH ×2 (07:54→21:07)
[2019-09-16] MEDS: Amlodipine 5 MG TAB PO SCH (07:55)
[2019-09-16] MEDS: Polyethylene Glycol 3350 17 GM Packet PO SCH (07:55)
[2019-09-16] MEDS: Atorvastatin Calcium 40 MG TAB PO SCH (21:07)
[2019-09-16] MEDS: Acetaminophen 325 MG TAB PO PRN (21:08)
[2019-09-16] MEDS: DOXYLAMINE SUCCINATE 25 MG PO SCH (23:51)
[2019-09-17 05:24] LABS: #Basophils 0.1 thou/uL (0.0-0.2); #Eosinphils 0.1 thou/uL (0.0-0.7); #Monocytes 0.5 thou/uL (0.11-0.59); #Neutrophils 2.6 thou/uL (1.40-6.50); %Basophils 1.6 % (0.0-1.0); %Eosinophils 3.1 % (0.0-10.0); %Lymphocytes 22.9 % (21.0-51.0); %Monocytes 11.4 % (0.0-10.0); %Neutrophils 61.1 % (42.0-75.0); Mean Corpuscular HGB CONC 30.5 g/dL (32.0-36.0); Mean Corpuscular Hemoglobin 27.4 pg (27.0-31.0); Mean Corpuscular Volume 90.1 fL (78.0-98.0); Platelet Count 253 thou/uL (130-400); RBC Distribution Width 20.2 % (11.5-14.5); Red Blood Cell (RBC) Count 2.56 mill/uL (4.20-5.40); White Blood Cell (WBC) Count 4.3 thou/uL (4.8-10.8)
[2019-09-17 05:58] LABS: MDiff Complete? YES; Manual Diff?? NO
[2019-09-17] MEDS: Polyethylene Glycol 3350 17 GM Packet PO SCH (09:01)
[2019-09-17] MEDS: Amlodipine 5 MG TAB PO SCH (09:02)
[2019-09-17] MEDS: Ferrous Gluconate 324 MG TAB PO SCH ×2 (09:02→21:18)
[2019-09-17] MEDS: Lisinopril 5 MG TAB PO SCH (09:02)
[2019-09-17] MEDS: HYDROcodone/Acetaminophen 5/325 mg Tablet PO PRN (09:05)
--- NOTE | 2019-09-17 10:53 | PRG ---
DATE OF SERVICE: 09/17/2019 SUBJECTIVE: The patient said she is feeling better. She is not having to take the pain medicine as often, last time was yesterday evening. She is sleeping better. OBJECTIVE: GENERAL: The patient is sitting up in her bedside chair, just having completed her breakfast. She is alert, appears comfortable, in no distress. VITAL SIGNS: Her temperature is 97.1, pulse 88, respirations 16, O2 saturations 94%, blood pressure 128/62. LUNGS: Clear. HEART: Regular rate. EXTREMITIES: No edema. LABORATORY DATA: Hemoglobin 7, hematocrit 23.1, white cell count 4300. ASSESSMENT: 1. Nondisplaced periprosthetic fracture of the right medial femoral condyle secondary to a fall on 08/17/2019. a. Initially managed by immobilization of the knee in an immobilizer and nonweightbearing on the right. b. Visit with Orthopedic surgeon, Dr. Rojelio Flanagan, on 08/29 with repeat x-ray showed stable fracture, no displacement. Placed in a long leg hinged immobilizer with 0 to 30 degrees of motion. Remains nonweightbearing. c. Gradual improvement. Pain controlled as of 09/17/2019. 2. Chronic anemia. a. Hemoglobin chronically in the 9s. b. Hemoglobin dropped from 8.6 on 08/17 to 7.2 on 08/18, secondary to acute blood loss from the fracture. Hemoglobin 6.9 on 08/29. Transfuse 1 unit of blood. Hemoglobin 8.4 on 08/20. Hemoglobin 8.8 on 08/22. Hemoglobin 8.1 on . Hemoglobin 8.5 on 09/11. Hemoglobin 7.2 on 09/13. Hemoglobin 7.0 on . 3. Hypertension. 4. Coronary artery disease, asymptomatic. 5. Hyperlipidemia. 6. Overactive bladder. 7. Spondylosis. PLAN: Continue present care. Continue PT and OT. Recheck blood count on 09/19/2019. [facility] ID: [id number] [facility]
[2019-09-17] MEDS: Acetaminophen 325 MG TAB PO PRN (21:17)
[2019-09-17] MEDS: Atorvastatin Calcium 40 MG TAB PO SCH (21:18)
[2019-09-17] MEDS: DOXYLAMINE SUCCINATE 25 MG PO SCH (23:47)
[2019-09-18] MEDS: HYDROcodone/Acetaminophen 5/325 mg Tablet PO PRN ×2 (00:10→07:10)
[2019-09-18] MEDS: Lisinopril 5 MG TAB PO SCH (08:41)
[2019-09-18] MEDS: Ferrous Gluconate 324 MG TAB PO SCH ×2 (08:41→21:33)
[2019-09-18] MEDS: Amlodipine 5 MG TAB PO SCH (08:42)
[2019-09-18] MEDS: Polyethylene Glycol 3350 17 GM Packet PO SCH (08:44)
[2019-09-18] MEDS: Acetaminophen 325 MG TAB PO PRN (21:32)
[2019-09-18] MEDS: Atorvastatin Calcium 40 MG TAB PO SCH (21:33)
[2019-09-18] MEDS: DOXYLAMINE SUCCINATE 25 MG PO SCH (22:42)
[2019-09-19] MEDS: HYDROcodone/Acetaminophen 5/325 mg Tablet PO PRN ×2 (03:55→08:29)
[2019-09-19 06:16] LABS: #Basophils 0.1 thou/uL (0.0-0.2); #Eosinphils 0.2 thou/uL (0.0-0.7); #Lymphocytes 1.1 thou/uL (1.20-3.40); #Monocytes 0.5 thou/uL (0.11-0.59); #Neutrophils 2.5 thou/uL (1.40-6.50); %Basophils 1.9 % (0.0-1.0); %Eosinophils 3.9 % (0.0-10.0); %Lymphocytes 25.4 % (21.0-51.0); %Monocytes 11.5 % (0.0-10.0); %Neutrophils 57.4 % (42.0-75.0); Hemoglobin 6.3 g/dL (12.0-16.0); Mean Corpuscular HGB CONC 31.2 g/dL (32.0-36.0); Mean Corpuscular Hemoglobin 27.2 pg (27.0-31.0); Mean Corpuscular Volume 87.2 fL (78.0-98.0); Mean Platelet Volume 10.5 fL (7.4-10.4); Platelet Count 237 thou/uL (130-400); RBC Distribution Width 19.7 % (11.5-14.5); Red Blood Cell (RBC) Count 2.31 mill/uL (4.20-5.40); White Blood Cell (WBC) Count 4.3 thou/uL (4.8-10.8)
[2019-09-19] MEDS: Lisinopril 5 MG TAB PO SCH (08:23)
[2019-09-19] MEDS: Ferrous Gluconate 324 MG TAB PO SCH ×2 (08:24→20:46)
[2019-09-19] MEDS: Amlodipine 5 MG TAB PO SCH (08:24)
[2019-09-19] MEDS: Polyethylene Glycol 3350 17 GM Packet PO SCH (08:25)
--- NOTE | 2019-09-19 11:15 | PRG ---
DATE OF SERVICE: 09/19/2019 SUBJECTIVE: The patient said she did not rest as well as she just cannot seem to get very comfortable in this bed and asked if a different mattress might help her. She has been working with physical therapy twice today. OBJECTIVE: GENERAL: The patient is lying in bed. She is alert, appears in no acute distress. VITAL SIGNS: Temperature of 98, pulse 72, respirations 16, O2 sat 96% on room air, and blood pressure 115/58. LUNGS: Clear. HEART: Regular rate. EXTREMITIES: There is no edema. Right knee is well immobilized with a long-leg hinged metal knee immobilizer. No effusion present on the knee. LABORATORY DATA: H and H of 6.3 and 20.1, white cell count 4300 with 57% segs, 25% lymphocytes, and a platelet count of 237,000. Stools for occult blood were negative x2. Iron studies pending. ASSESSMENT: 1. Nondisplaced periprosthetic fracture of the right medial femoral condyle secondary to a fall on 08/17/2019. a. Initially managed with knee immobilizer, nonweightbearing on the right. b. Orthopedic surgical visit with Rojelio Flanagan on 08/29 with repeat x-ray showed stable fracture, no displacement. Placed in long-leg hinged immobilizer with 0 to 30 degrees motion. Remains nonweightbearing. c. Gradual improvement. Pain controlled as of 09/19. 2. Chronic anemia. a. Hemoglobin chronically in the 9s. b. Gradual drop in hemoglobin to 6.9 on 08/19, requiring transfusion of 1 unit of blood. Hemoglobin has gradually dropped again to 6.3 as of 09/19/2019 and will receive 1 unit of packed RBCs. c. Stools for occult blood 2 have been reported back as negative. Third pending as of 09/19/2019. 3. Hypertension. 4. Coronary artery disease, asymptomatic. 5. Hyperlipidemia. 6. Overactive bladder. 7. Spondylosis of the LS spine. PLAN: We will transfuse 1 unit of blood and then repeat H and H 2 hours later. Continue PT. Nurses will try different mattress or air flotation mattress to see if she would be more comfortable. Job ID: [id number] [facility]
[2019-09-19 11:50] LABS: Iron 102 ug/dL (50-170); Iron Binding Capacity, Total 234 mcg/dL (265-497)
[2019-09-19] MEDS ORDERED: Ondansetron ODT 4 MG TAB PO PRN (12:07)
[2019-09-19] MEDS: DOXYLAMINE SUCCINATE 25 MG PO SCH (20:46)
[2019-09-19] MEDS: Atorvastatin Calcium 40 MG TAB PO SCH (20:46)
[2019-09-20 06:07] LABS: #Basophils 0.1 thou/uL (0.0-0.2); #Eosinphils 0.2 thou/uL (0.0-0.7); #Monocytes 0.6 thou/uL (0.11-0.59); #Neutrophils 2.9 thou/uL (1.40-6.50); %Basophils 1.8 % (0.0-1.0); %Eosinophils 3.1 % (0.0-10.0); %Lymphocytes 21.4 % (21.0-51.0); %Monocytes 12.7 % (0.0-10.0); Anisocytosis SLIGHT = 6-15 cells (100X) (0-5/hpf); Elliptocytes SLIGHT = 2-5 cells (100X) (0-1/hpf); Hypochromia SLIGHT = 6-15 cells (100X) (0-5/hpf); Large Platelets SLIGHT; MDiff Complete? YES; Mean Corpuscular HGB CONC 30.6 g/dL (32.0-36.0); Mean Corpuscular Hemoglobin 26.6 pg (27.0-31.0); Mean Corpuscular Volume 86.8 fL (78.0-98.0); Mean Platelet Volume 12.3 fL (7.4-10.4); Platelet Count 234 thou/uL (130-400); Platelet Morphology Comment Appears Adequate; Poikilocytosis SLIGHT = 6-15 cells (100X) (0-5/hpf); RBC Distribution Width 20.4 % (11.5-14.5); Schistocytes SLIGHT = 2-5 cells (100X) (0-1/hpf); Spherocytes SLIGHT = 1-5 cells (100X) (None Seen); Target Cells SLIGHT = 2-5 cells (100X) (0-1/hpf); White Blood Cell (WBC) Count 4.8 thou/uL (4.8-10.8)
[2019-09-20] MEDS: Amlodipine 5 MG TAB PO SCH (08:10)
[2019-09-20] MEDS: Ferrous Gluconate 324 MG TAB PO SCH (08:10)
[2019-09-20] MEDS: Lisinopril 5 MG TAB PO SCH (08:10)
[2019-09-20] MEDS: Polyethylene Glycol 3350 17 GM Packet PO SCH (08:11)
--- NOTE | 2019-09-20 09:07 | PRG ---
DATE OF SERVICE: 09/20/2019 SUBJECTIVE: The patient says she feels better today. She did get 1 unit of blood yesterday. She will be worked with Physical Therapy today. The patient said her pains seemed to be well controlled. She is not having to take pain medicine as often. OBJECTIVE: GENERAL: The patient is sitting up in a Bindu chair, is alert and talkative, looks much better. Color is much better. VITAL SIGNS: Temp 99.4, pulse 81, respirations 16, O2 sat 95% on room air, and blood pressure 122/56. LUNGS: Clear. HEART: Regular rate. EXTREMITIES: No edema. LABORATORY DATA: Her H and H this morning is 9 and 29.6. Iron 102, TIBC 234, and ferritin 128. ASSESSMENT: 1. Nondisplaced periprosthetic fracture of the right femoral condyle secondary to a fall on 08/17/2019. a. Initially managed with knee immobilizer, nonweightbearing. b. Orthopedic surgical consult with Dr. Flanagan on 08/29 with repeat x- ray showed stable fracture, no displacement. Placed in a long leg hinged immobilizer with 0 to 30 degrees of motion. Remains nonweightbearing. c. Gradual improvement. Pain controlled as of 09/20. 2. Anemia of chronic illness. a. Hemoglobin usually in the 9s. b. Gradual drop in hemoglobin to 6.9 on 08/19, requiring transfusion of 1 unit of blood. Hemoglobin has gradually dropped to 6.3 on 09/19, requiring a 1 unit of blood transfusion. Hemoglobin 9.0 on 09/20. c. Stools for occult blood, 2 are negative, a 3rd pending. Serum ferritin 124. 3. Hypertension. 4. Coronary artery disease, asymptomatic. 5. Hyperlipidemia. 6. Overactive bladder. 7. Spondylosis of the lumbosacral spine. PLAN: Continue present care. We will stop the iron since her iron stores show she has had plenty of iron and this is an anemia of chronic illness. Job ID: [id number] [facility]
[2019-09-20] MEDS: HYDROcodone/Acetaminophen 5/325 mg Tablet PO PRN (11:59)
[2019-09-20] MEDS: Atorvastatin Calcium 40 MG TAB PO SCH (20:44)
[2019-09-20] MEDS: DOXYLAMINE SUCCINATE 25 MG PO SCH (20:47)
[2019-09-21] MEDS: HYDROcodone/Acetaminophen 5/325 mg Tablet PO PRN ×2 (08:15→20:01)
[2019-09-21] MEDS: Lisinopril 5 MG TAB PO SCH (08:21)
[2019-09-21] MEDS: Amlodipine 5 MG TAB PO SCH (08:24)
[2019-09-21] MEDS: Polyethylene Glycol 3350 17 GM Packet PO SCH (08:25)
[2019-09-21] MEDS: Atorvastatin Calcium 40 MG TAB PO SCH (20:02)
[2019-09-21] MEDS: DOXYLAMINE SUCCINATE 25 MG PO SCH (21:57)
[2019-09-22] MEDS: HYDROcodone/Acetaminophen 5/325 mg Tablet PO PRN ×2 (02:33→21:32)
[2019-09-22] MEDS: Lisinopril 5 MG TAB PO SCH (08:38)
[2019-09-22] MEDS: Polyethylene Glycol 3350 17 GM Packet PO SCH (08:38)
[2019-09-22] MEDS: Amlodipine 5 MG TAB PO SCH (08:40)
[2019-09-22] MEDS: Atorvastatin Calcium 40 MG TAB PO SCH (20:19)
[2019-09-22] MEDS: DOXYLAMINE SUCCINATE 25 MG PO SCH (21:32)
[2019-09-23] MEDS: Amlodipine 5 MG TAB PO SCH (09:01)
[2019-09-23] MEDS: Lisinopril 5 MG TAB PO SCH (09:01)
[2019-09-23] MEDS: Polyethylene Glycol 3350 17 GM Packet PO SCH (09:02)
[2019-09-23] MEDS: HYDROcodone/Acetaminophen 5/325 mg Tablet PO PRN (15:17)
[2019-09-23] MEDS: Atorvastatin Calcium 40 MG TAB PO SCH (20:14)
[2019-09-23] MEDS: DOXYLAMINE SUCCINATE 25 MG PO SCH (22:16)
[2019-09-24] MEDS: Acetaminophen 325 MG TAB PO PRN (02:46)
[2019-09-24] MEDS: HYDROcodone/Acetaminophen 5/325 mg Tablet PO PRN ×2 (07:03→20:13)
--- NOTE | 2019-09-24 07:29 | PRG ---
DATE OF SERVICE: 09/21/2019 SUBJECTIVE: The patient says she is doing better. Her leg is feeling better. The patient is due to be rechecked by her orthopedic surgeon next week on 09/26. OBJECTIVE: GENERAL: The patient is sitting up in her Bindu chair. She is alert , talkative, appears very comfortable. VITAL SIGNS: Her temperature is 98.2, pulse 81, blood pressure 141/69, respirations 18, O2 saturation 94% on room air. LUNGS: Clear. HEART: Regular rate. EXTREMITIES: Right leg is in a hinged knee immobilizer. There is no edema of the leg and no effusion. The leg is not tender as it had been. ASSESSMENT: 1. Nondisplaced periprosthetic fracture of the right medial femoral condyle secondary to a fall on 08/17/2019. a. Initially managed with the knee immobilizer nonweightbearing. b. Visit with orthopedic surgeon, Dr. Flanagan on 08/29/2019 with repeat x- ray showed stable fracture with no displacement. Placed in a long leg hinged immobilizer with 0 to 30 degrees of motion. Remains nonweightbearing. c. Gradual improvement. 2. Pain well controlled as of 09/21. 3. Anemia of chronic illness. a. Hemoglobin usually in the 9s. b. Required transfusion of 1 unit on 08/19 for hemoglobin of 6.9. Required a 1 unit transfusion of blood on 09/19 for hemoglobin dropped to 6.3. Hemoglobin 9.0 on 09/20. c. Stools for occult blood negative x2. Third pending. Serum ferritin 124. 4. Hypertension. 5. Coronary artery disease, asymptomatic. 6. Hyperlipidemia. 7. Overactive bladder. 8. Spondylosis of the LS spine. PLAN: The patient is making gradual progress. She is due to be rechecked by orthopedic surgeon on Tuesday 09/26. Continue PT and OT. [facility] ID: [id number] [facility]
[2019-09-24] MEDS: Lisinopril 5 MG TAB PO SCH (08:53)
[2019-09-24] MEDS: Amlodipine 5 MG TAB PO SCH (08:54)
[2019-09-24] MEDS: Polyethylene Glycol 3350 17 GM Packet PO SCH (08:56)
--- NOTE | 2019-09-24 11:10 | PRG ---
DATE OF SERVICE: 09/24/2019 SUBJECTIVE: The patient says she is doing okay, just a little uncomfortable this morning with soreness in her back. Her leg is doing good. She is scheduled to see her orthopedic surgeon, Dr. Flanagan on Tuesday 09/26. OBJECTIVE: GENERAL: The patient is alert, appears in no acute distress. VITAL SIGNS: Temperature 97.9, pulse 69, respirations 16, O2 saturation 96% on room air, blood pressure 114/89. LUNGS: Clear. HEART: Regular rate. EXTREMITIES: No edema. Right knee, the long-leg metal knee immobilizer is fitting well. There is no effusion over the knee. The patient's stools for occult blood were negative x3. ASSESSMENT: 1. Nondisplaced periprosthetic fracture of the right medial femoral condyle secondary to a fall on 08/17/19. a. Initially managed with knee immobilizer, nonweightbearing. b. Visit with orthopedic surgeon, Dr. Flanagan on 08/29/19, with repeat x- ray showed stable fracture with no displacement. Placed in a long-leg hinged immobilizer with 0 to 30 degrees motion, remains nonweightbearing. c. Gradual improvement as of 09/24. Pain well controlled. 2. Anemia of chronic illness. a. Hemoglobin usually in the 9s. b. Required transfusion of 1 unit on 08/19 for hemoglobin of 6.9. Required 1 unit transfusion on 09/19 for hemoglobin of 6.3. Hemoglobin 9.0 on 09/20. c. Serum ferritin 124. Stools for occult blood negative x3. 3. Hypertension. 4. Coronary artery disease. a. Asymptomatic. 5. Hyperlipidemia. 6. Overactive bladder. 7. Spondylosis of the LS spine. PLAN: Continue present care. May utilize a Gaymar pump for moist heat to the back as needed. Job ID: [id number] [facility]
[2019-09-24] MEDS: Atorvastatin Calcium 40 MG TAB PO SCH (20:14)
[2019-09-24] MEDS: DOXYLAMINE SUCCINATE 25 MG PO SCH (22:00)
[2019-09-25] MEDS: Amlodipine 5 MG TAB PO SCH (08:35)
[2019-09-25] MEDS: Polyethylene Glycol 3350 17 GM Packet PO SCH (08:36)
[2019-09-25] MEDS: Lisinopril 5 MG TAB PO SCH (08:36)
[2019-09-25] MEDS: HYDROcodone/Acetaminophen 5/325 mg Tablet PO PRN (08:39)
[2019-09-25] MEDS: Atorvastatin Calcium 40 MG TAB PO SCH (20:39)
[2019-09-25] MEDS: DOXYLAMINE SUCCINATE 25 MG PO SCH (21:53)
[2019-09-26] MEDS: HYDROcodone/Acetaminophen 5/325 mg Tablet PO PRN ×4 (02:30→18:56)
[2019-09-26] MEDS: Amlodipine 5 MG TAB PO SCH (08:29)
[2019-09-26] MEDS: Lisinopril 5 MG TAB PO SCH (08:29)
[2019-09-26] MEDS: Polyethylene Glycol 3350 17 GM Packet PO SCH (08:30)
--- NOTE | 2019-09-26 11:01 | PRG ---
DATE OF SERVICE: 09/26/2019 SUBJECTIVE: The patient said she is feeling better today. Today, she is due to see Dr. Flanagan, orthopedic surgeon. OBJECTIVE: GENERAL: The patient is sitting up in a geriatric chair. She looks very comfortable, in no distress. VITAL SIGNS: Her temperature is 98.1, pulse 68, respirations 16, O2 saturations 94%, and blood pressure 115/58. LUNGS: Clear. HEART: Regular rate. EXTREMITIES: Showed no edema. The right leg is in the long-leg knee immobilizer. There is no effusion on the knee. LABORATORY DATA: One of her three stools for occult blood had been reported as negative, was revised as positive. She has had no positive stools on visual check. We will continue to observe this. Monitor H and H. ASSESSMENT: 1. Nondisplaced periprosthetic fracture of the right medial femoral condyle secondary to a fall on 08/17/2019. a. Initially managed with knee immobilizer, nonweightbearing. b. Visit with Dr. Flanagan on 08/29/2019, orthopedic surgeon with repeat x- ray showed stable fracture, no displacement. Placed in a long-leg hinged immobilizer with 0 to 30 degrees of motion. Remains nonweightbearing. c. Gradual improvement as of 09/26. Pain well controlled. 2. Anemia of chronic illness. a. Hemoglobin usually in the 9s. b. Required transfusion of 1 unit on 08/19 for hemoglobin of 6.9 secondary to blood loss from the fracture. Required 1 unit of transfusion on 09/19 for hemoglobin of 6.3. Hemoglobin 9.0 on 09/20. c. Serum ferritin 124. Stools for occult blood negative x2. Third initially reported as negative and later is revised as positive. No blood seen in stools as of 09/26. 3. Hypertension. 4. Coronary artery disease. a. Asymptomatic. 5. Hyperlipidemia. 6. Overactive bladder. 7. Spondylosis of the LS spine. PLAN: Continue present care. Continue PT and OT. The patient due to see Dr. Flanagan today, orthopedic surgeon. Job ID: [id number] [facility]
[2019-09-26] MEDS: Atorvastatin Calcium 40 MG TAB PO SCH (21:16)
[2019-09-26] MEDS: DOXYLAMINE SUCCINATE 25 MG PO SCH (21:16)
[2019-09-27] MEDS: HYDROcodone/Acetaminophen 5/325 mg Tablet PO PRN ×2 (08:02→13:16)
[2019-09-27] MEDS: Lisinopril 5 MG TAB PO SCH (08:42)
[2019-09-27] MEDS: Amlodipine 5 MG TAB PO SCH (08:43)
[2019-09-27] MEDS: Polyethylene Glycol 3350 17 GM Packet PO SCH (08:44)
--- NOTE | 2019-09-27 08:58 | PRG ---
DATE OF SERVICE: 09/27/2019 SUBJECTIVE: Yesterday, the patient was seen by Dr. Rojelio Flanagan's PA and repeat x-ray was done. Apparently, they were pleased with her progress and the knee brace was removed. They said she can now start partial weightbearing, but no range of motion exercises yet. The patient said she is glad to have it off, but the leg felt a little insecure without it. OBJECTIVE: GENERAL: The patient is alert, appears comfortable, in no distress. VITAL SIGNS: Show a temperature of 96.4, pulse 72, respirations 16, O2 saturation 96% on room air, and blood pressure 115/58. LUNGS: Clear. HEART: Regular rate. EXTREMITIES: Lower extremities, no edema. The right knee has no effusion. The brace is off the leg. ASSESSMENT: 1. Nondisplaced periprosthetic fracture of the right medial femoral condyle secondary to a fall on 08/17/2019. a. Initially managed with knee immobilizer and nonweightbearing. b. Visit with Dr. Rojelio Flanagan, orthopedic surgeon, on 08/29 with repeat x-ray showed stable fracture, no displacement. Placed on long-leg hinged immobilizer with 0 to 30 degrees of motion. Visit on 09/26/2019 and repeat x-ray, doing well. Knee immobilizer removed. Began partial weightbearing, but no range of motion exercises. c. Continued improvement, now out of the knee immobilizer as of 09/27. Pain well controlled. 2. Anemia of chronic illness. a. Hemoglobin usually in the 9s. b. Required transfusion of 1 unit on 08/19 for hemoglobin of 6.9, secondary to blood loss from the fracture. Required transfusion of 1 unit on 09/19 for hemoglobin of 6.3. Hemoglobin 9.0 on 09/20. c. Serum ferritin 124. Stools for occult blood negative x2. Third was initially reported as negative, later revised and is positive. Stools grossly have no evidence of blood as of 09/27. Hx of hemorrhoids with occasional bleeding. 3. Coronary artery disease, asymptomatic. 4. Hypertension. 5. Overactive bladder. 6. Spondylosis of the LS spine. PLAN: Continue PT/OT. The patient is no longer in the leg brace, will ambulate with a walker and partial weightbearing, no range of motion yet, will be rechecked by orthopedic surgeon in 1 month. Job ID: [id number] [facility]
[2019-09-27] MEDS: Atorvastatin Calcium 40 MG TAB PO SCH (21:02)
[2019-09-27] MEDS: DOXYLAMINE SUCCINATE 25 MG PO SCH (21:03)
[2019-09-28] MEDS: HYDROcodone/Acetaminophen 5/325 mg Tablet PO PRN ×3 (01:19→13:20)
[2019-09-28] MEDS: Lisinopril 5 MG TAB PO SCH (08:37)
[2019-09-28] MEDS: Amlodipine 5 MG TAB PO SCH (08:38)
[2019-09-28] MEDS: Polyethylene Glycol 3350 17 GM Packet PO SCH (08:38)
--- NOTE | 2019-09-28 12:16 | PRG ---
DATE OF SERVICE: 09/28/2019 SUBJECTIVE: The patient says she is doing good this morning. Therapist said that she walked about 10 feet with partial weightbearing on the right leg with the use of a walker and did very well. The patient is sitting up in her Bindu chair. She is alert, talkative, appears in no distress. The patient said that she has some problems with hemorrhoids and occasionally, she will have just a small amount of bleeding with bowel movements. This is probably why we had one of the three occult blood that was positive. OBJECTIVE: GENERAL: The patient is alert, looks very comfortable, in no distress. VITAL SIGNS: Her temperature 97.7, pulse 77, respirations 18, O2 saturation 96 % on room air, and blood pressure 113/59. LUNGS: Clear. HEART: Regular rate. EXTREMITIES: Lower extremities, no edema. ASSESSMENT: 1. Nondisplaced periprosthetic fracture of the right medial femoral condyle secondary to a fall on 08/17/2019. a. Managed with the knee immobilizer, nonweightbearing from 08/17/2019 until 09/26/2019, six weeks. Now, out of brace and ambulate with partial weightbearing on the right and doing very well as of 09/28. 2. Anemia of chronic illness. a. Hemoglobin usually in the 9s. b. Required transfusion of 1 unit on 08/19 for hemoglobin of 6.5 secondary to blood loss from the fracture. Required transfusion of 1 unit on 09/19 for hemoglobin of 6.3. Hemoglobin 9.0 on 09/20. c. Serum ferritin 124. Stools for occult blood negative x2. The third was initially negative, but later read as positive, probably from hemorrhoids that she has and it flares occasionally. 3. Coronary artery disease. a. Asymptomatic. 4. Hypertension. 5. Overactive bladder. 6. Spondylosis of the LS spine. PLAN: The patient is making excellent progress now that she can partially weight bear on the right. She is beginning to ambulate and has walked this morning up to 10 feet with a walker and assistance. We will continue PT and OT. Job ID: [id number] [facility]
[2019-09-28] MEDS: Atorvastatin Calcium 40 MG TAB PO SCH (20:40)
[2019-09-28] MEDS: DOXYLAMINE SUCCINATE 25 MG PO SCH (20:41)
[2019-09-29] MEDS: HYDROcodone/Acetaminophen 5/325 mg Tablet PO PRN ×3 (05:06→23:00)
[2019-09-29] MEDS: Amlodipine 5 MG TAB PO SCH (09:47)
[2019-09-29] MEDS: Lisinopril 5 MG TAB PO SCH (09:48)
[2019-09-29] MEDS: Polyethylene Glycol 3350 17 GM Packet PO SCH ×2 (09:50→09:53)
[2019-09-29] MEDS: Atorvastatin Calcium 40 MG TAB PO SCH (20:49)
[2019-09-29] MEDS: DOXYLAMINE SUCCINATE 25 MG PO SCH (20:50)
[2019-09-30] MEDS: Polyethylene Glycol 3350 17 GM Packet PO SCH (08:33)
[2019-09-30] MEDS: Amlodipine 5 MG TAB PO SCH (08:33)
[2019-09-30] MEDS: Lisinopril 5 MG TAB PO SCH (08:34)
[2019-09-30] MEDS: HYDROcodone/Acetaminophen 5/325 mg Tablet PO PRN ×2 (11:10→21:02)
[2019-09-30] MEDS: Atorvastatin Calcium 40 MG TAB PO SCH (21:02)
[2019-09-30] MEDS: DOXYLAMINE SUCCINATE 25 MG PO SCH (21:06)
[2019-10-01] MEDS: Amlodipine 5 MG TAB PO SCH (07:52)
[2019-10-01] MEDS: HYDROcodone/Acetaminophen 5/325 mg Tablet PO PRN ×2 (07:53→14:10)
[2019-10-01] MEDS: Polyethylene Glycol 3350 17 GM Packet PO SCH (07:53)
[2019-10-01] MEDS: Lisinopril 5 MG TAB PO SCH (07:54)
--- NOTE | 2019-10-01 11:17 | PRG ---
DATE OF SERVICE: 10/01/2019 SUBJECTIVE: The patient says she is doing all right. She said she is moving her right leg a little better. She does have discomfort with PT and the weightbearing, but she is making progress there. OBJECTIVE: GENERAL: The patient is in bed, moves around in bed without help. She looks very comfortable this morning. VITAL SIGNS: Her temperature is 98.5, pulse 79, blood pressure 139/61, respirations 16, O2 saturation 95% on room air. LUNGS: Clear. HEART: Regular rate. EXTREMITIES: Right knee, the patient has a little more range of motion in that knee, but still restricted. There is no effusion. There is no peripheral edema. ASSESSMENT: 1. Nondisplaced periprosthetic fracture of the right femoral medial condyle secondary to fall on 08/17/2019. a. Managed with the knee immobilizer and nonweightbearing for 6 weeks, she is now out of the brace and allowed partial weightbearing as of 09/26/2019. b. Improving, pain controlled, ambulating short distance with a walker as of 10/01. 2. Anemia of chronic illness. a. Hemoglobin usually in the 9s. b. Required 1 unit of blood on 08/19 for hemoglobin of 6.5 secondary to blood loss from the fracture. Required transfusion of 1 unit on 09/19 for hemoglobin of 6.3. Hemoglobin 9.0 on 09/20. c. Serum ferritin 124. Stools for occult blood negative x2. Third occult blood was positive that I suspect from hemorrhoids that she has a history of. 3. Coronary artery disease, asymptomatic. 4. Hypertension. 5. Overactive bladder. 6. Spondylosis of the LS spine. PLAN: Continue present care. Continue PT. Job ID: [id number] [facility]
[2019-10-01] MEDS: Atorvastatin Calcium 40 MG TAB PO SCH (21:32)
[2019-10-02] MEDS: DOXYLAMINE SUCCINATE 25 MG PO SCH (00:37)
[2019-10-02] MEDS: Amlodipine 5 MG TAB PO SCH (07:59)
[2019-10-02] MEDS: HYDROcodone/Acetaminophen 5/325 mg Tablet PO PRN ×2 (08:01→14:25)
[2019-10-02] MEDS: Lisinopril 5 MG TAB PO SCH (08:03)
[2019-10-02] MEDS: Polyethylene Glycol 3350 17 GM Packet PO SCH (08:04)
[2019-10-02] MEDS: Atorvastatin Calcium 40 MG TAB PO SCH (21:37)
[2019-10-03] MEDS: DOXYLAMINE SUCCINATE 25 MG PO SCH ×2 (00:26→21:52)
[2019-10-03] MEDS: Polyethylene Glycol 3350 17 GM Packet PO SCH (07:40)
[2019-10-03] MEDS: Amlodipine 5 MG TAB PO SCH (07:40)
[2019-10-03] MEDS: Lisinopril 5 MG TAB PO SCH (07:40)
[2019-10-03] MEDS: HYDROcodone/Acetaminophen 5/325 mg Tablet PO PRN ×2 (07:41→16:21)
[2019-10-03] MEDS: Atorvastatin Calcium 40 MG TAB PO SCH (20:35)
[2019-10-04] MEDS: Polyethylene Glycol 3350 17 GM Packet PO SCH (08:10)
[2019-10-04] MEDS: Amlodipine 5 MG TAB PO SCH (08:10)
[2019-10-04] MEDS: Lisinopril 5 MG TAB PO SCH (08:10)
[2019-10-04] MEDS: HYDROcodone/Acetaminophen 5/325 mg Tablet PO PRN ×2 (08:15→14:30)
--- NOTE | 2019-10-04 09:00 | PRG ---
DATE OF SERVICE: 10/04/2019 SUBJECTIVE: The patient says she is doing all right. Her pain overall is better. She is working with Physical Therapy. She is walking very short distance with her walker and partial weightbearing on the right leg. OBJECTIVE: GENERAL: The patient is alert, appears comfortable, in no distress. VITAL SIGNS: Temperature 99.1, pulse 97, respirations are 16, O2 saturation 94 % on room air, and blood pressure 105/55. LUNGS: Clear. HEART: Regular rate. EXTREMITIES: No edema. Right knee slightly larger than the left, but there is no effusion present. ASSESSMENT: 1. Nondisplaced periprosthetic fracture of the right medial condyle secondary to a fall on 08/17/2019. a. Managed with 6 weeks of nonweightbearing and a knee immobilizer. b. Improving. Pain controlled. Ambulating short distance with a walker as of 10/04. 2. Anemia of chronic illness. a. Hemoglobin usually in the 9s. b. Required 1 unit of blood on 08/19 for hemoglobin of 6.5 secondary to blood loss from the fracture. c. Required transfusion of 1 unit on 09/19 for hemoglobin of 6.3. Hemoglobin 9.0 on 09/20. d. Serum ferritin 124. Stools for occult blood two of three were, one positive probably from her hemorrhoids. 3. Coronary artery disease, asymptomatic. 4. Hypertension. 5. Overactive bladder. 6. Spondylosis of the LS spine. PLAN: Continue present care. Continue PT and OT. Job ID: [id number] [facility]
[2019-10-04] MEDS: Atorvastatin Calcium 40 MG TAB PO SCH (20:46)
[2019-10-04] MEDS: DOXYLAMINE SUCCINATE 25 MG PO SCH (21:44)
[2019-10-05] MEDS: HYDROcodone/Acetaminophen 5/325 mg Tablet PO PRN ×3 (01:27→16:07)
[2019-10-05] MEDS: Polyethylene Glycol 3350 17 GM Packet PO SCH (08:42)
[2019-10-05] MEDS: Amlodipine 5 MG TAB PO SCH (08:43)
[2019-10-05] MEDS: Lisinopril 5 MG TAB PO SCH (08:44)
--- NOTE | 2019-10-05 11:23 | PRG ---
DATE OF SERVICE: 10/05/2019 SUBJECTIVE: The patient says she is feeling good. She is in Physical Therapy Department working on a NuStep, which allows her to work her arms and her legs. She is doing better on this and she is walking short distance at usually 10 to 25 feet with a rolling walker and contact support. OBJECTIVE: GENERAL: The patient looks very comfortable sitting on the NuStep, working her arms and legs. She appears in no distress. VITAL SIGNS: Temperature 98.6, pulse 73, blood pressure 129/69, respirations 18 , and O2 saturation 96% on room air. LUNGS: Clear. HEART: Regular rate. EXTREMITIES: Lower extremities, no edema. ASSESSMENT: 1. Nondisplaced periprosthetic fracture of the right medial condyle secondary to a fall on 08/17/2019. a. Initially managed with 6 weeks of nonweightbearing in a knee immobilizer. b. Pain well controlled. Now working on rehabilitation. She is ambulating 10 to 25 feet with a walker and contact support as of 10/05. 2. Anemia of chronic illness. a. Hemoglobin usually in the 9s. b. Required 1 unit of blood on 08/19 for hemoglobin of 6.5 secondary to blood loss from the fracture. c. Required transfusion of 1 unit on 09/19 for hemoglobin of 6.3. Hemoglobin 9.0 on 09/20. d. Serum ferritin 125. Stools for occult blood 2/3 were negative, one positive probably from her hemorrhoids. 3. Coronary artery disease, asymptomatic. 4. Hypertension. 5. Overactive bladder. 6. Spondylosis of the LS spine. PLAN: The patient is making gradual progress. She will need continued physical therapy and occupational therapy in an effort to improve her gait and functional capability. Job ID: [id number] [facility]
[2019-10-05] MEDS: Atorvastatin Calcium 40 MG TAB PO SCH (20:31)
[2019-10-05] MEDS: DOXYLAMINE SUCCINATE 25 MG PO SCH (20:32)
[2019-10-06] MEDS: HYDROcodone/Acetaminophen 5/325 mg Tablet PO PRN ×2 (01:48→08:48)
[2019-10-06] MEDS: Polyethylene Glycol 3350 17 GM Packet PO SCH (08:51)
[2019-10-06] MEDS: Lisinopril 5 MG TAB PO SCH (08:51)
[2019-10-06] MEDS: Amlodipine 5 MG TAB PO SCH (08:52)
[2019-10-06] MEDS: Atorvastatin Calcium 40 MG TAB PO SCH (20:43)
[2019-10-06] MEDS: DOXYLAMINE SUCCINATE 25 MG PO SCH (20:43)
[2019-10-07] MEDS: HYDROcodone/Acetaminophen 5/325 mg Tablet PO PRN ×3 (01:18→17:19)
[2019-10-07] MEDS: Polyethylene Glycol 3350 17 GM Packet PO SCH (09:06)
[2019-10-07] MEDS: Lisinopril 5 MG TAB PO SCH (09:07)
[2019-10-07] MEDS: Amlodipine 5 MG TAB PO SCH (09:07)
[2019-10-07] MEDS: Atorvastatin Calcium 40 MG TAB PO SCH (20:49)
[2019-10-07] MEDS: DOXYLAMINE SUCCINATE 25 MG PO SCH (20:50)
[2019-10-08] MEDS: HYDROcodone/Acetaminophen 5/325 mg Tablet PO PRN ×3 (07:13→20:10)
[2019-10-08] MEDS: Polyethylene Glycol 3350 17 GM Packet PO SCH (08:36)
[2019-10-08] MEDS: Amlodipine 5 MG TAB PO SCH (08:36)
[2019-10-08] MEDS: Lisinopril 5 MG TAB PO SCH (08:36)
--- NOTE | 2019-10-08 10:35 | PRG ---
DATE OF SERVICE: 10/08/2019 SUBJECTIVE: The patient says she is feeling good today. Over the weekend, she had just a little swelling in her right foot, but this is better. She had some momentary numbness in the right foot today, but that has passed. She is having no trouble with her breathing. OBJECTIVE: GENERAL: The patient is alert, appears comfortable and in no distress. VITAL SIGNS: Her temp is 99.3, pulse 82, respirations 16, O2 saturation 95% on room air, blood pressure 145/61. LUNGS: Clear. HEART: Regular rate. EXTREMITIES: Right leg, there is no edema. Color is good. Feet are warm. Pulses are good. Right knee, there is no effusion. ASSESSMENT: 1. Nondisplaced periprosthetic fracture of the right medial condyle secondary to a fall on 08/17/2019. a. Managed initially with 6 weeks of nonweightbearing in a knee immobilizer. b. Pain well controlled. Continues work with rehab. Ambulating short distances with a walker and contact support as of 10/08. 2. Anemia of chronic illness. a. Hemoglobin usually in the 9s. b. Required 1 unit of transfusion on 08/19 for hemoglobin of 6.5 secondary to blood loss from the fracture. c. Required transfusion of 1 unit on 09/19 for hemoglobin of 6.3, hemoglobin 9.0 on 09/20. d. Serum ferritin 125. Stools for occult blood 2 out of 3 negative. One positive probably from hemorrhoids. 3. Coronary artery disease, asymptomatic. 4. Hypertension. 5. Overactive bladder. 6. Spondylosis of the LS spine. PLAN: Continue present care. Continue PT and OT. [facility] [id number] [facility]
[2019-10-08] MEDS: Atorvastatin Calcium 40 MG TAB PO SCH (20:10)
[2019-10-08] MEDS: DOXYLAMINE SUCCINATE 25 MG PO SCH (20:13)
[2019-10-09] MEDS: HYDROcodone/Acetaminophen 5/325 mg Tablet PO PRN ×3 (07:48→20:24)
[2019-10-09] MEDS: Lisinopril 5 MG TAB PO SCH (07:49)
[2019-10-09] MEDS: Amlodipine 5 MG TAB PO SCH (07:50)
[2019-10-09] MEDS: Polyethylene Glycol 3350 17 GM Packet PO SCH (07:52)
[2019-10-09] MEDS: Atorvastatin Calcium 40 MG TAB PO SCH (20:21)
[2019-10-09] MEDS: DOXYLAMINE SUCCINATE 25 MG PO SCH (22:13)
[2019-10-10] MEDS: HYDROcodone/Acetaminophen 5/325 mg Tablet PO PRN ×3 (08:11→20:49)
[2019-10-10] MEDS: Amlodipine 5 MG TAB PO SCH (08:12)
[2019-10-10] MEDS: Lisinopril 5 MG TAB PO SCH (08:13)
[2019-10-10] MEDS: Polyethylene Glycol 3350 17 GM Packet PO SCH (08:13)
--- NOTE | 2019-10-10 12:28 | PRG ---
DATE OF SERVICE: 10/10/2019 SUBJECTIVE: The patient thinks she is doing good. She is having a little bit of swelling in her right foot. There is no pain or pain in the calf. She continues to work with Physical Therapy and walking up to 25 feet with a rolling walker a couple of times a day. She is requiring minimal assistance with transfers. OBJECTIVE: GENERAL: The patient is sitting up in her bed. She is alert looks very comfortable, in no distress. VITAL SIGNS: Her temp is 98.3 pulse 81, respirations 16, O2 saturation 95% on room air, blood pressure 110/56. LUNGS: Clear. HEART: Regular rate. EXTREMITIES: Right knee there is no effusion. She had full extension, some decreased ability to flex the knee. Her calf has no swelling on the right leg. There is no tenderness to compression. The right foot and ankle has some mild swelling. There is no tenderness. No redness. Suspect the edema is just from some venous insufficiency and dependency. ASSESSMENT: 1. Nondisplaced periprosthetic fracture of the right medial condyle secondary to a fall on 08/17/2019. a. Managed initially with 6 weeks of nonweightbearing and a knee immobilizer. b. Pain well controlled. Walking up to 25 feet 2 times a day with a walker as of 10/10. 2. Anemia of chronic illness. a. Hemoglobin usually in the 9, b. Required transfusion of 1 unit on 08/19 for hemoglobin of 6.5 secondary to blood loss from the fracture. She required 1 unit of blood transfusion on 09/19 for hemoglobin of 6.3. Hemoglobin 9.0 on . c. Serum ferritin 125. Stools for occult blood 2/3 negative, 1 positive, probably from hemorrhoids. 3. Coronary artery disease, asymptomatic. 4. Hypertension, controlled. 5. Overactive bladder. 6. Spondylosis of the lumbosacral spine. PLAN: Continue present care. Continue PT and OT. We will place patient in knee-high support hose to see if this will help with the dependent edema of that right foot. Job ID: [id number] [facility]
[2019-10-10] MEDS: Atorvastatin Calcium 40 MG TAB PO SCH (20:48)
[2019-10-11] MEDS: DOXYLAMINE SUCCINATE 25 MG PO SCH ×2 (00:18→21:42)
[2019-10-11] MEDS: HYDROcodone/Acetaminophen 5/325 mg Tablet PO PRN ×2 (07:47→12:25)
[2019-10-11] MEDS: Lisinopril 5 MG TAB PO SCH (09:35)
[2019-10-11] MEDS: Amlodipine 5 MG TAB PO SCH (09:36)
[2019-10-11] MEDS: Polyethylene Glycol 3350 17 GM Packet PO SCH (09:36)
[2019-10-11] MEDS: Acetaminophen 325 MG TAB PO PRN (19:51)
[2019-10-11] MEDS: Atorvastatin Calcium 40 MG TAB PO SCH (21:42)
[2019-10-12] MEDS: HYDROcodone/Acetaminophen 5/325 mg Tablet PO PRN ×4 (02:10→20:29)
[2019-10-12] MEDS: Amlodipine 5 MG TAB PO SCH (09:00)
[2019-10-12] MEDS: Lisinopril 5 MG TAB PO SCH (09:01)
[2019-10-12] MEDS: Polyethylene Glycol 3350 17 GM Packet PO SCH (09:05)
--- NOTE | 2019-10-12 14:09 | PRG ---
DATE OF SERVICE: 10/12/2019 SUBJECTIVE: The patient says she is doing better. This morning, she is in the Physical Therapy room working on a NuStep. The therapist says she is transferring very well and just needs standby assistance. Her walking, some days are much better than others. By the afternoon, she does better and has walked up to 100 feet with her walker. Her range of motion in her right knee is better. She has good extension and flexion is improving. OBJECTIVE: GENERAL: The patient is alert, appears in no distress. VITAL SIGNS: Show a temperature of 98, pulse 82, blood pressure 138/60, respirations are 18, O2 saturation 97% on room air. LUNGS: Clear. HEART: Regular rate. EXTREMITIES: The patient is wearing the WOLF hose. She has just a trace amount of swelling in the right ankle. It is much better. There is no calf tenderness. ASSESSMENT: 1. Nondisplaced periprosthetic fracture of the right medial condyle secondary to a fall on 08/17/2019. a. Managed initially with six weeks of nonweightbearing and a knee immobilizer. b. Pain well controlled. Walking at times up to 100 feet with a walker. Transferring was standby assistance as 10/12/2019. 2. Anemia of chronic illness. a. Hemoglobin usually in the 9s. b. Required transfusion of 1 unit on 08/19 for hemoglobin of 6.5 secondary to blood loss from the fracture. She required a unit of blood transfused on for hemoglobin of 6.3. Hemoglobin post transfusion 9.0 on 09/20. c. Serum ferritin 125. Stools for occult blood 2/3 negative, 1 positive probably from hemorrhoids. 3. Coronary artery disease, asymptomatic. 4. Hypertension, controlled. 5. Overactive bladder. 6. Spondylosis of the lumbar spine. PLAN: The patient is making gradual progress. We will continue PT and OT. The knee-high support hose are controlling the little bit of swelling in the right lower leg and ankle and foot. Visited with the patient, that eventually when she goes home, that she will probably need more assistance in the home other than just home health. Job ID: [id number] [facility]
[2019-10-12] MEDS: Atorvastatin Calcium 40 MG TAB PO SCH (20:29)
[2019-10-12] MEDS: DOXYLAMINE SUCCINATE 25 MG PO SCH (21:49)
[2019-10-13] MEDS: HYDROcodone/Acetaminophen 5/325 mg Tablet PO PRN ×2 (04:13→13:53)
[2019-10-13] MEDS: Amlodipine 5 MG TAB PO SCH (08:27)
[2019-10-13] MEDS: Polyethylene Glycol 3350 17 GM Packet PO SCH (08:27)
[2019-10-13] MEDS: Lisinopril 5 MG TAB PO SCH (08:27)
[2019-10-13] MEDS: Acetaminophen 325 MG TAB PO PRN ×2 (08:46→20:15)
[2019-10-13] MEDS: Atorvastatin Calcium 40 MG TAB PO SCH (20:15)
[2019-10-13] MEDS: DOXYLAMINE SUCCINATE 25 MG PO SCH (22:15)
[2019-10-14] MEDS: Acetaminophen 325 MG TAB PO PRN (01:38)
[2019-10-14] MEDS: HYDROcodone/Acetaminophen 5/325 mg Tablet PO PRN ×4 (04:51→22:29)
[2019-10-14] MEDS: Lisinopril 5 MG TAB PO SCH (08:41)
[2019-10-14] MEDS: Amlodipine 5 MG TAB PO SCH (08:42)
[2019-10-14] MEDS: Polyethylene Glycol 3350 17 GM Packet PO SCH (08:42)
[2019-10-14] MEDS: DOXYLAMINE SUCCINATE 25 MG PO SCH (21:26)
[2019-10-14] MEDS: Atorvastatin Calcium 40 MG TAB PO SCH (21:26)
[2019-10-15] MEDS: HYDROcodone/Acetaminophen 5/325 mg Tablet PO PRN ×2 (07:36→20:24)
[2019-10-15] MEDS: Polyethylene Glycol 3350 17 GM Packet PO SCH (09:18)
[2019-10-15] MEDS: Amlodipine 5 MG TAB PO SCH (09:18)
[2019-10-15] MEDS: Lisinopril 5 MG TAB PO SCH (09:18)
--- NOTE | 2019-10-15 09:57 | PRG ---
DATE OF SERVICE: 10/15/2019 SUBJECTIVE: The patient said she is doing better. She is walking a little better. She said she is now walking with her walker to the bathroom with help. She said she is still having swelling in her right foot. The foot does not hurt. She says she is not having any pain in the calf. She does have a history of a right foot drop. She said they have not been putting the WOLF hose on her for the last couple of days. This had been helping with the swelling. OBJECTIVE: GENERAL: The patient is sitting up on the edge of the bed. She is alert, appears very comfortable, in no distress. VITAL SIGNS: Her temperature is 98.5, pulse 75, respirations 16, O2 saturation 96% on room air, and blood pressure 132/63. LUNGS: Clear. HEART: Regular rate. EXTREMITIES: Right leg, the knee has no swelling. There is 1+ edema of the right ankle and foot. There is no tenderness in the foot. The patient cannot dorsiflex the right foot, but she said she has not been able to for years from the footdrop. She has no calf tenderness to compression. ASSESSMENT: 1. Nondisplaced periprosthetic fracture of the right medial condyle secondary to a fall on 08/17/2019. a. Managed initially with 6 weeks of nonweightbearing and a knee immobilizer. b. Pain well controlled. c. Walking at times up to 100 feet with a walker. Transferring better as of 10/14/2019. 2. Anemia of chronic illness. a. Hemoglobin usually in the 9s. b. Required transfusion on 08/19 for hemoglobin of 6.5, transfusion on for hemoglobin of 6.3. Hemoglobin posttransfusion on 09/20 was 9.0. c. Serum ferritin 125. Stools for occult blood 2/3 negative. One positive from probable hemorrhoids. 3. Coronary artery disease, asymptomatic. 4. Hypertension, controlled. 5. Overactive bladder. 6. Spondylosis of the lumbar spine. 7. Swelling in the right ankle and foot. a. I suspect this is all from the venous insufficiency and dependency in the leg that has a right footdrop, for which she had a right periprosthetic femoral fracture, but we will arrange for venous Doppler to ensure there is no deep venous thrombosis. PLAN: Continue present care. Wear the WOLF hose at least knee-high during the day. We will arrange venous Doppler of the right lower leg. Job ID: [id number] [facility]
[2019-10-15] MEDS: Atorvastatin Calcium 40 MG TAB PO SCH (20:23)
[2019-10-15] MEDS: DOXYLAMINE SUCCINATE 25 MG PO SCH (22:26)
[2019-10-16] MEDS: HYDROcodone/Acetaminophen 5/325 mg Tablet PO PRN ×2 (07:41→11:58)
[2019-10-16] MEDS: Amlodipine 5 MG TAB PO SCH (08:48)
[2019-10-16] MEDS: Lisinopril 5 MG TAB PO SCH (08:49)
[2019-10-16] MEDS: Polyethylene Glycol 3350 17 GM Packet PO SCH (08:50)
--- NOTE | 2019-10-16 09:23 | PRG ---
DATE OF SERVICE: 10/16/2019 SUBJECTIVE: The patient said she is feeling all right today. Her right foot still swells. She is wearing her WOLF hose. She is scheduled to undergo venous Doppler of the right leg today. OBJECTIVE: GENERAL: The patient is sitting up on the edge of the bed. She is alert, looks very comfortable, in no distress. VITAL SIGNS: Temperature 99, pulse 77, respirations 18, O2 saturations 95% on room air, blood pressure 119/59. LUNGS: Clear. HEART: Regular rate. EXTREMITIES: Lower extremities with just a bit of edema, it is mild in the right ankle and foot. She is wearing her WOLF hose. ASSESSMENT: 1. Nondisplaced periprosthetic fracture of the right medial condyle secondary to a fall on 08/17/2019. a. Managed initially with 6 weeks of nonweightbearing in a knee immobilizer. b. Pain well controlled. c. Walking at times up to 100 feet with a walker. Transferring better as of 10/16/2019. 2. Anemia of chronic illness. a. Hemoglobin usually in the 9s. b. Transfused on 08/19 and again on 09/19 for hemoglobins that were 6.5 and 6.3. Post transfusion hemoglobin on 09/20 was 9.0. c. Serum ferritin 125. Stools for occult blood 2/3 negative, 1 positive from probable hemorrhoids. 3. Coronary artery disease, asymptomatic. 4. Hypertension, controlled. 5. Overactive bladder. 6. Spondylosis of the lumbar spine. 7. Swelling in the right ankle and foot. a. Scheduled for venous Doppler of the right leg on 10/16/2019. PLAN: Continue present care. Continue the WOLF hose. Venous Dopplers to be done today to ensure there is no DVT on that left leg. Job ID: [id number] [facility]
[2019-10-16] MEDS: Atorvastatin Calcium 40 MG TAB PO SCH (22:14)
[2019-10-16] MEDS: DOXYLAMINE SUCCINATE 25 MG PO SCH (23:53)
[2019-10-17] MEDS: HYDROcodone/Acetaminophen 5/325 mg Tablet PO PRN ×4 (02:06→20:34)
[2019-10-17] MEDS: Amlodipine 5 MG TAB PO SCH (08:02)
[2019-10-17] MEDS: Polyethylene Glycol 3350 17 GM Packet PO SCH (08:02)
[2019-10-17] MEDS: Lisinopril 5 MG TAB PO SCH (08:02)
--- NOTE | 2019-10-17 09:39 | PRG ---
DATE OF SERVICE: 10/17/2019 SUBJECTIVE: The patient says she is just uncomfortable today. She is having pain down in the right foot and it extends up the leg to almost the hip. Nurse said she has medicated her with hydrocodone and also has rubbed some Biofreeze on that foot and patient complained of pain when she touched the arch area. OBJECTIVE: GENERAL: The patient is lying in bed and looks uncomfortable. VITAL SIGNS: Her temperature is 98.6, pulse 81, respirations 22, O2 sat 98% on room air, and blood pressure 129/58. LUNGS: Clear. HEART: Regular rate. EXTREMITIES: Right leg, there is no edema in the legs. Right knee, there is no effusion or tenderness. The patient reported pain in the right foot. The venous Doppler of the right leg was done yesterday and showed no evidence of DVT. ASSESSMENT: 1. Nondisplaced periprosthetic fracture of the right femoral condyle secondary to a fall on 08/17/2019. a. Managed initially with 6 weeks of nonweightbearing in a knee immobilizer. b. Walking at times up to 100 feet with a walker. Transferring better as of 10/17/2019. 2. Anemia of chronic illness. 3. Coronary heart disease, asymptomatic. 4. Hypertension. 5. Overactive bladder, stable. 6. Spondylosis of the lumbar spine. 7. Swelling in the right ankle and foot. a. Venous Doppler of the right leg on 10/16/2019 showed no evidence of DVT. b. Complaining of pain in that right foot today, but there is no swelling or bruising as of 10/16. PLAN: We will x-ray the right foot and the ankle. Continue present care. Continue PT as tolerated. [facility] ID: [id number] [facility]
--- NOTE | 2019-10-17 10:42 | RAD ---
RIGHT ANKLE 3 VIEWS: Date: 10/17/2019 HISTORY: Pain FINDINGS: There is very severe bony demineralization. In addition, there is some significant heterogeneous scle rosis in the lateral talus, as well as the distal fibula and less so the distal tibia, as well as the calcaneus and cuboid bones. 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 No acute fracture or dislocation. 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 If the patient has persistent or worsening unexplained pain, additional imaging with follow-up bone s can or MRI study might be of benefit. POS: [facility]
--- NOTE | 2019-10-17 10:46 | RAD ---
RIGHT FOOT 3 VIEWS: Date: 10/17/2019 HISTORY: Foot pain, foot drop. FINDINGS/IMPRESSION: Severe heterogeneous bony demineralization, as well as some areas of sclerosis involving the mid and hindfoot. Tibiotalar and subtalar joint arthrosis. No evidence for acute fracture or dislocation. If patient's symptoms persist or worsen, or do not resolve over the short term, consider follow-up ad ditional imaging with bone scan or MRI study. POS: [facility]
[2019-10-17] MEDS: Atorvastatin Calcium 40 MG TAB PO SCH (20:32)
[2019-10-17] MEDS: DOXYLAMINE SUCCINATE 25 MG PO SCH (23:50)
[2019-10-18] MEDS: HYDROcodone/Acetaminophen 5/325 mg Tablet PO PRN (07:45)
[2019-10-18] MEDS: Lisinopril 5 MG TAB PO SCH (08:16)
[2019-10-18] MEDS: Amlodipine 5 MG TAB PO SCH (08:17)
[2019-10-18] MEDS: Polyethylene Glycol 3350 17 GM Packet PO SCH (08:17)
--- NOTE | 2019-10-18 09:10 | PRG ---
DATE OF SERVICE: 10/18/2019 SUBJECTIVE: The patient says she feels a lot better today. Her right foot and ankle are better. X-rays were performed and showed heterogeneous bone demineralization and area of sclerosis, particularly of the talotibial joint. No fracture seen. OBJECTIVE: GENERAL: The patient is sitting up in a chair. She looks comfortable. In no distress. VITAL SIGNS: Show a temperature of 97.9, pulse 73, blood pressure 116/56. Weight 118. Oxygen saturation 96% on room air. LUNGS: Clear. HEART: Regular rate. EXTREMITIES: Right foot, the patient has no swelling. She is not able to dorsi , extend the foot. She has a long history of a foot drop. She is tender to palpation up through the arch of the foot. ASSESSMENT: 1. Nondisplaced periprosthetic fracture of the right femoral condyle secondary to fall on 08/17/2019. a. Managed initially with 6 weeks of nonweightbearing and in a knee immobilizer. b. Walking at times up to 100 feet with a walker. Transferring better as of 10/18/2019. 2. Anemia of chronic illness. 3. Coronary heart disease, asymptomatic. 4. Hypertension. 5. Overactive bladder. 6. Spondylosis of the lumbar spine. 7. Right foot and ankle pain. a. Venous Doppler of the right leg on 10/15 showed no evidence of DVT. b. X-rays of the right foot and ankle show heterogeneous demineralization and some sclerosis, particularly in the talotibial joint, improved as of 10/17. PLAN: Continue PT/OT. The patient's pain from the foot is coming from the arthritic change and recent nonuse of the foot. The patient has marked demineralization. This is secondary to the limited use of the foot due to the long history of the foot drop. Encouraged her to wear a good supporting shoe that has a soft insert and arch support. Continue using a walker. Job ID: [id number] [facility]
[2019-10-18] MEDS: Atorvastatin Calcium 40 MG TAB PO SCH (20:17)
[2019-10-18] MEDS: DOXYLAMINE SUCCINATE 25 MG PO SCH (21:40)
[2019-10-19] MEDS: HYDROcodone/Acetaminophen 5/325 mg Tablet PO PRN ×3 (00:05→16:33)
[2019-10-19] MEDS: Amlodipine 5 MG TAB PO SCH (08:47)
[2019-10-19] MEDS: Polyethylene Glycol 3350 17 GM Packet PO SCH (08:48)
[2019-10-19] MEDS: Lisinopril 5 MG TAB PO SCH (08:48)
--- NOTE | 2019-10-19 12:28 | PRG ---
DATE OF SERVICE: 10/19/2019 SUBJECTIVE: The patient said she walked with her walker and helped physical therapy around to the Physical Therapy Department and she is now doing strengthening exercises of her arms and her legs. She is feeling better. Foot feels better. She had refused to have lab work drawn this morning. OBJECTIVE: GENERAL: The patient is alert, appears in no distress. VITAL SIGNS: Her vital signs show a temperature of 97.8, pulse 83, respirations 16, O2 sat 95% on room air, and blood pressure 125/59. LUNGS: Clear. HEART: Regular rate. EXTREMITIES: Right leg; the knee has no effusion, the ankle has trace edema, the foot was not tender, she is not wearing her knee-high support hose, but said she will. ASSESSMENT: 1. Nondisplaced periprostatic fracture of the right medial femoral condyle secondary to a fall on 08/17/2019. a. Managed initially with 6 weeks of nonweightbearing in a knee immobilizer. b. Walking over 100 feet with a walker. Transferring independent with standby assistance as of 10/18. 2. Anemia of chronic illness. 3. Coronary heart disease, asymptomatic. 4. Hypertension. 5. Overactive bladder. 6. Spondylosis of lumbar spine. 7. Right foot and ankle pain. a. Venous Doppler of the right leg on 10/15 showed no evidence of DVT. b. X-ray shows heterogeneous demineralization and sclerosis, particularly of the talofibular joint secondary to degenerative changes. This morning, comfortable with wearing shoes and ambulating as of 10/18. PLAN: Continue PT and OT. She is making continued gradual progress. Her pain in the right foot seemed to be well controlled with wearing comfortable shoe when ambulating. Continue PT and OT. [facility] ID: [id number] [facility]
[2019-10-19] MEDS: Atorvastatin Calcium 40 MG TAB PO SCH (21:46)
[2019-10-19] MEDS: DOXYLAMINE SUCCINATE 25 MG PO SCH (21:47)
[2019-10-20] MEDS: HYDROcodone/Acetaminophen 5/325 mg Tablet PO PRN (05:10)
[2019-10-20] MEDS: Polyethylene Glycol 3350 17 GM Packet PO SCH (09:32)
[2019-10-20] MEDS: Lisinopril 5 MG TAB PO SCH (09:32)
[2019-10-20] MEDS: Amlodipine 5 MG TAB PO SCH (09:33)
[2019-10-20] MEDS: Acetaminophen 325 MG TAB PO PRN ×2 (14:33→19:39)
[2019-10-20] MEDS: DOXYLAMINE SUCCINATE 25 MG PO SCH (20:53)
[2019-10-20] MEDS: Atorvastatin Calcium 40 MG TAB PO SCH (20:54)
[2019-10-21] MEDS: HYDROcodone/Acetaminophen 5/325 mg Tablet PO PRN ×3 (03:11→15:40)
[2019-10-21] MEDS: Polyethylene Glycol 3350 17 GM Packet PO SCH (09:11)
[2019-10-21] MEDS: Amlodipine 5 MG TAB PO SCH (09:11)
[2019-10-21] MEDS: Lisinopril 5 MG TAB PO SCH (09:11)
[2019-10-21] MEDS: Atorvastatin Calcium 40 MG TAB PO SCH (20:55)
[2019-10-21] MEDS: DOXYLAMINE SUCCINATE 25 MG PO SCH (20:55)
[2019-10-22] MEDS: HYDROcodone/Acetaminophen 5/325 mg Tablet PO PRN ×2 (07:18→13:31)
[2019-10-22] MEDS: Lisinopril 5 MG TAB PO SCH (10:26)
[2019-10-22] MEDS: Amlodipine 5 MG TAB PO SCH (10:27)
[2019-10-22] MEDS: Polyethylene Glycol 3350 17 GM Packet PO SCH (10:28)
--- NOTE | 2019-10-22 12:16 | PRG ---
DATE OF SERVICE: 10/22/2019 SUBJECTIVE: The patient says she is doing pretty good this morning. She is getting better. She is walking a little bit better with the use of her walker. Her right knee and foot are feeling better. OBJECTIVE: GENERAL: The patient is sitting up in her geriatric chair. She is alert, talkative, and appears comfortable. VITAL SIGNS: Temperature 99.7, pulse 86, respirations 16, O2 saturation 96% on room air, and blood pressure 132/60. LUNGS: Clear. HEART: Regular rate. EXTREMITIES: Right knee, no effusion, nontender. Right foot has trace edema. ASSESSMENT: 1. Nondisplaced periprosthetic fracture of the right medial femoral condyle secondary to a fall on 08/17/2019. a. Managed initially with 6 weeks of nonweightbearing in a knee immobilizer. b. Walking over 100 feet with a walker. Transferring independent with standby assistance as of 10/21. 2. Anemia of chronic illness. 3. Coronary heart disease, asymptomatic. 4. Hypertension. 5. Overactive bladder. 6. Spondylosis of the lumbar spine. 7. Right foot and ankle pain. a. Venous Doppler of the right leg on 10/15 showed no evidence of deep vein thrombosis. b. X-ray of the right foot and ankle showed no fracture, just demineralizations and evidence of degenerative changes. c. Improved. Ambulates with comfortable shoes with the use of a walker as of 10/21. PLAN: The patient is gradually making further progress. She does not feel like her walking abilities are good enough yet for her to try to make it at home. We will continue the PT and OT. Job ID: [id number] [facility]
[2019-10-22] MEDS: Atorvastatin Calcium 40 MG TAB PO SCH (20:46)
[2019-10-22] MEDS: DOXYLAMINE SUCCINATE 25 MG PO SCH (21:45)
[2019-10-23] MEDS: HYDROcodone/Acetaminophen 5/325 mg Tablet PO PRN ×3 (02:27→13:09)
[2019-10-23] MEDS: Amlodipine 5 MG TAB PO SCH (07:57)
[2019-10-23] MEDS: Lisinopril 5 MG TAB PO SCH (07:57)
[2019-10-23] MEDS: Polyethylene Glycol 3350 17 GM Packet PO SCH (07:58)
[2019-10-23] MEDS: Atorvastatin Calcium 40 MG TAB PO SCH (20:24)
[2019-10-23] MEDS: DOXYLAMINE SUCCINATE 25 MG PO SCH (20:25)
[2019-10-24] MEDS: HYDROcodone/Acetaminophen 5/325 mg Tablet PO PRN ×3 (02:26→23:03)
[2019-10-24] MEDS: Amlodipine 5 MG TAB PO SCH (08:16)
[2019-10-24] MEDS: Lisinopril 5 MG TAB PO SCH (08:16)
[2019-10-24] MEDS: Polyethylene Glycol 3350 17 GM Packet PO SCH (08:17)
--- NOTE | 2019-10-24 09:54 | PRG ---
DATE OF SERVICE: 10/24/2019 SUBJECTIVE: The patient thinks she is making gradual progress. She is doing better with the therapy. She is due to see her orthopedic surgeon today. She is complaining of having to get up several times to urinate last night. She said it was not any type of dysuria. The patient is doing well with physical therapy. She is walking up to 50 feet, sometimes 80 once or twice today with her rolling walker and caregiver assist. She is transferring with just caregiver assist her supervision. OBJECTIVE: VITAL SIGNS: Show a temperature of 98, pulse 73, respirations 16, O2 saturation 95% on room air, blood pressure 132/58. LUNGS: Clear. HEART: Regular rate. EXTREMITIES: No edema. ASSESSMENT: 1. Nondisplaced periprosthetic fracture of the right medial femoral condyle secondary to a fall on 08/17/2019. a. Managed initially with 6 weeks of nonweightbearing and in a knee immobilizer. b. Walking most time 50 feet, sometimes up to 80 feet with a rolling walker, transferring with standby assistance as of 10/23. 2. Anemia of chronic illness. 3. Coronary heart disease, asymptomatic. 4. Hypertension. 5. Nocturia as of 10/23. PLAN: Continue PT/OT. The patient to see her orthopedic surgeon today. We will obtain a UA. Job ID: [id number] [facility]
[2019-10-24 19:06] LABS: Bilirubin Negative (Negative); Blood, Urine Negative (Negative); Clarity Clear (Clear); Glucose, Urine (Dipstick) Negative (Negative); Leukocyte Negative (Negative); Nitrite Negative (Negative); Protein, Urine (Dipstick) Negative (Neg-Trace); Urobilinogen 0.2 mg/dL (Less than 2)
[2019-10-24 19:10] LABS: Bacteria/HPF Rare-Few HPF (None Seen); RBC/HPF 0-3 HPF (0-3); Squamous Epithelial 0-3 HPF (0-3); WBC/HPF None Seen HPF (0-3)
[2019-10-24] MEDS: DOXYLAMINE SUCCINATE 25 MG PO SCH (21:21)
[2019-10-24] MEDS: Atorvastatin Calcium 40 MG TAB PO SCH (21:22)
[2019-10-25] MEDS: HYDROcodone/Acetaminophen 5/325 mg Tablet PO PRN ×3 (05:46→23:02)
[2019-10-25] MEDS: Amlodipine 5 MG TAB PO SCH (08:42)
[2019-10-25] MEDS: Lisinopril 5 MG TAB PO SCH (08:43)
[2019-10-25] MEDS: Polyethylene Glycol 3350 17 GM Packet PO SCH (08:44)
[2019-10-25] MEDS: Atorvastatin Calcium 40 MG TAB PO SCH (21:51)
[2019-10-25] MEDS: DOXYLAMINE SUCCINATE 25 MG PO SCH (21:51)
[2019-10-26] MEDS: Acetaminophen 325 MG TAB PO PRN (01:32)
[2019-10-26] MEDS: Amlodipine 5 MG TAB PO SCH (08:03)
[2019-10-26] MEDS: Lisinopril 5 MG TAB PO SCH (08:03)
[2019-10-26] MEDS: HYDROcodone/Acetaminophen 5/325 mg Tablet PO PRN ×2 (08:04→16:44)
[2019-10-26] MEDS: Polyethylene Glycol 3350 17 GM Packet PO SCH (08:04)
--- NOTE | 2019-10-26 10:30 | PRG ---
DATE OF SERVICE: 10/26/2019 SUBJECTIVE: The patient said she is doing all right. She had a good visit with Dr. Flanagan this week and he is letting her continue to progress her activities as she tolerates. She has complained of some pain in her right foot today. The WOLF hose tend to roll up and cause her trouble. These are going above the knee. I have asked if they just use knee-high support hose, will order. I have also recommended that she use an ankle-foot orthosis for that right foot, she has not been using this, this would greatly aid her in her walking. Right now, this will have to be fitted at the [facility], and with this, the russell pandemic, this may have to be put off. OBJECTIVE: GENERAL: The patient is lying in bed, alert, appears comfortable, but having a little pain in the right foot. VITAL SIGNS: Her temp is 98.1 pulse 76, blood pressure 122/58, respirations 16 , and O2 sat 95% on room air. LUNGS: Clear. HEART: Regular rate. EXTREMITIES: Right foot, there is a little edema in the right foot. She does not have her support hose own and she has the plantar flexion of the foot from the footdrop. ASSESSMENT: 1. Nondisplaced periprosthetic fracture of the right medial femoral condyle secondary to a fall on 08/17/2019. a. Managed initially with 6 weeks of nonweightbearing and in a knee immobilizer. b. Walking most of the time up to 50 to 80 feet with a rolling walker. Transferring was standby assistance as of 10/25. 2. Anemia of chronic illness. 3. Coronary heart disease, asymptomatic. 4. Hypertension. 5. Chronic right footdrop. PLAN: Continue present care. Continue PT and OT. We will order an ankle-foot orthosis, but this is going to have to be delayed for now. We will order a CBC and basic metabolic panel. Job ID: [id number] [facility]
[2019-10-26 11:38] LABS: Anion Gap 11 mmol/L (10-20); BUN (Urea Nitrogen) 14 mg/dL (9.8-20.1); Calc. Creatinine Clearance 45 mL/min (70-130); Calcium 8.5 mg/dL (7.8-10.44); Carbon Dioxide 28 mmol/L (23-31); Chloride 106 mmol/L (98-107); Estimated GFR-MDRD 76; Glucose 114 mg/dL (83-110); Potassium 4.3 mmol/L (3.5-5.1); Sodium 141 mmol/L (136-145)
[2019-10-26 12:19] LABS: Hemoglobin 6.1 g/dL (12.0-16.0); Mean Corpuscular HGB CONC 30.9 g/dL (32.0-36.0); Mean Corpuscular Hemoglobin 28.1 pg (27.0-31.0); Mean Corpuscular Volume 90.9 fL (78.0-98.0); Mean Platelet Volume 12.3 fL (7.4-10.4); Platelet Count 202 thou/uL (130-400); RBC Distribution Width 24.3 % (11.5-14.5); Red Blood Cell (RBC) Count 2.19 mill/uL (4.20-5.40); White Blood Cell (WBC) Count 2.8 thou/uL (4.8-10.8)
[2019-10-26 12:24] LABS: Anisocytosis SLIGHT = 6-15 cells (100X) (0-5/hpf); Band 1 % (5-11); Eosinophils 11 % (0-10); Hypochromia MODERATE=16-30 cells (100X) (0-5/hpf); Lymphocytes 27 % (21-51); MDiff Complete? YES; Monocytes 10 % (0-10); Neutrophil 51 % (42-75); Platelet Morphology Comment Appears Adequate; Poikilocytosis MODERATE=16-30 cells (100X) (0-5/hpf); Reflex for Review?? YES
[2019-10-26] MEDS: Atorvastatin Calcium 40 MG TAB PO SCH (20:48)
[2019-10-26] MEDS: DOXYLAMINE SUCCINATE 25 MG PO SCH (20:49)
[2019-10-27] MEDS: Amlodipine 5 MG TAB PO SCH (08:07)
[2019-10-27] MEDS: Lisinopril 5 MG TAB PO SCH (08:07)
[2019-10-27] MEDS: Polyethylene Glycol 3350 17 GM Packet PO SCH (08:07)
[2019-10-27] MEDS: HYDROcodone/Acetaminophen 5/325 mg Tablet PO PRN ×2 (08:08→14:22)
[2019-10-27 15:33] LABS: Iron 137 ug/dL (50-170); Iron Binding Capacity, Total 239 mcg/dL (265-497)
--- NOTE | 2019-10-27 17:21 | PRG ---
DATE OF SERVICE: 10/27/2019 SUBJECTIVE: The patient says she is feeling good today. She had no complaint. OBJECTIVE: GENERAL: The patient is sitting up on the side of her bed, visiting with her . She is alert, talkative, and appears in no distress. VITAL SIGNS: Her temperature is 98.4, pulse 75, respirations 16, O2 saturation 93% on room air, and blood pressure 133/60. LUNGS: Clear. HEART: Regular rate. EXTREMITIES: The patient is wearing the WOLF hose coming up above the knees, that is controlling the swelling in the ankle. LABORATORY DATA: Her labs showed H and H of 6.1 and 19.9, white blood cell count 2800 with an MCV of 90, there are 51% neutrophils, 1% bands, 27% lymphocytes, 11 % eosinophils, and her platelet count is 202,000. Sodium 141, potassium 4.3, BUN 14, creatinine 0.73, glucose 114. Serum iron 202, TIBC 234, and serum ferritin 128. ASSESSMENT: 1. Nondisplaced periprosthetic fracture of the right medial femoral condyle secondary to a fall on 08/17/2019. a. Managed initially with 6 weeks of nonweightbearing in the knee immobilizer. b. Walking 50 to 80 feet with a rolling walker. Transferring with standby assistance as of 10/27/2019. 2. Anemia of chronic illness. a. Previously during admission, the patient has had to receive 2 units of packed red blood cells on different occasions initially from the blood loss from the fracture. b. Stool for occult blood negative x2, positive x1. The patient thinks may be hemorrhoidal related. c. Hemoglobin 6.11, for which she will receive a 1 unit of packed red blood cells on 10/26. 3. Coronary artery disease, asymptomatic. 4. Hypertension. 5. Chronic right footdrop. PLAN: We will type and cross for units of blood and transfuse at 1 unit. I have checked her serum iron and ferritin level, which are normal. The source of her anemia is not known. She did have one of three stool cultures that were positive that she thought may be hemorrhoidal related. Later, we will arrange for Gastroenterology consultation to ensure this is not coming from some form of a chronic gastrointestinal blood loss, although the iron studies would tend the gets this. We will continue her PT and OT. The patient's appointment with prosthetic experts for fitting of an AFO will be put on hold until things settle some from the restrictions from the russell virus restrictions. Job ID: [id number] [facility]
[2019-10-27] MEDS: Atorvastatin Calcium 40 MG TAB PO SCH (21:47)
[2019-10-27] MEDS: DOXYLAMINE SUCCINATE 25 MG PO SCH (21:47)
[2019-10-28 05:52] LABS: #Basophils 0.1 thou/uL (0.0-0.2); #Eosinphils 0.3 thou/uL (0.0-0.7); #Lymphocytes 1.2 thou/uL (1.20-3.40); #Monocytes 0.6 thou/uL (0.11-0.59); #Neutrophils 2.8 thou/uL (1.40-6.50); %Basophils 2.1 % (0.0-1.0); %Eosinophils 5.7 % (0.0-10.0); %Lymphocytes 23.5 % (21.0-51.0); %Monocytes 12.1 % (0.0-10.0); %Neutrophils 56.6 % (42.0-75.0); Anisocytosis MARKED = >30 cells (100X) (0-5/hpf); Hemoglobin 7.8 g/dL (12.0-16.0); MDiff Complete? YES; Mean Corpuscular HGB CONC 31.3 g/dL (32.0-36.0); Mean Corpuscular Hemoglobin 28.6 pg (27.0-31.0); Mean Corpuscular Volume 91.5 fL (78.0-98.0); Mean Platelet Volume 10.2 fL (7.4-10.4); Ovalocytes MODERATE= 6-15 cells (100X) (0-1/hpf); Platelet Count 199 thou/uL (130-400); Red Blood Cell (RBC) Count 2.73 mill/uL (4.20-5.40); Tear Drops SLIGHT = 2-5 cells (100X) (0-1/hpf)
[2019-10-28] MEDS: Amlodipine 5 MG TAB PO SCH (08:05)
[2019-10-28] MEDS: Lisinopril 5 MG TAB PO SCH (08:05)
[2019-10-28] MEDS: Polyethylene Glycol 3350 17 GM Packet PO SCH (08:06)
[2019-10-28] MEDS: HYDROcodone/Acetaminophen 5/325 mg Tablet PO PRN (11:33)
[2019-10-28] MEDS: Atorvastatin Calcium 40 MG TAB PO SCH (21:49)
[2019-10-28] MEDS: DOXYLAMINE SUCCINATE 25 MG PO SCH (21:50)
[2019-10-29] MEDS: Acetaminophen 325 MG TAB PO PRN (00:27)
[2019-10-29] MEDS: HYDROcodone/Acetaminophen 5/325 mg Tablet PO PRN ×3 (05:14→13:15)
[2019-10-29] MEDS: Amlodipine 5 MG TAB PO SCH (08:41)
[2019-10-29] MEDS: Lisinopril 5 MG TAB PO SCH (08:42)
[2019-10-29] MEDS: Polyethylene Glycol 3350 17 GM Packet PO SCH (08:43)
[2019-10-29] MEDS: Atorvastatin Calcium 40 MG TAB PO SCH (20:58)
[2019-10-30] MEDS: DOXYLAMINE SUCCINATE 25 MG PO SCH (02:00)
[2019-10-30] MEDS: HYDROcodone/Acetaminophen 5/325 mg Tablet PO PRN ×2 (07:09→12:49)
[2019-10-30] MEDS: Amlodipine 5 MG TAB PO SCH (08:52)
[2019-10-30] MEDS: Lisinopril 5 MG TAB PO SCH (08:53)
[2019-10-30] MEDS: Polyethylene Glycol 3350 17 GM Packet PO SCH (08:56)
--- NOTE | 2019-10-30 09:06 | PRG ---
DATE OF SERVICE: 10/30/2019 SUBJECTIVE: The patient said she is a little tired this morning. She did not sleep as well. She was up having to urinate a little more often. She had no dysuria. She said she is doing better with her therapy, but not strong enough to where she thinks she can manage at home yet. OBJECTIVE: GENERAL: The patient is alert, appears comfortable, in no distress. VITAL SIGNS: Her temp is 98.3, pulse 76, respirations 18, O2 saturation 94% on room air, blood pressure 114/55. LUNGS: Clear. HEART: Regular rate. EXTREMITIES: Trace edema in the right foot which stays in a plantar flexed position due to the footdrop. LABORATORY DATA: Her H and H on 10/27 after 1 unit of blood transfused was 7.8 and 25. ASSESSMENT: 1. Nondisplaced periprostatic fracture of the right medial femoral condyle secondary to a fall on 08/17/2019. a. Managed initially with 6 weeks nonweightbearing in a knee immobilizer. b. Walking 50-80 feet with a rolling walker. Transferring with standby assistance as of 10/30/2019. 2. Anemia of chronic illness. a. Previously during admission, the patient received 2 units of packed red blood cells on different occasions that was secondary to blood loss from the fracture. b. Transfused 1 unit of packed red blood cells on 10/26 for hemoglobin of 6.1. Post transfusion hemoglobin and hematocrit on 10/27 was 7.8. c. Stool for occult blood negative x2. Positive x1, which patient feels is hemorrhoidal related. Serum ferritin 115. 3. Coronary artery disease. Asymptomatic. 4. Hypertension. 5. Chronic right footdrop. PLAN: Continue present care. Continue PT. [facility] ID: [id number] [facility]
[2019-10-30] MEDS: Atorvastatin Calcium 40 MG TAB PO SCH (20:38)
[2019-10-30] MEDS: Acetaminophen 325 MG TAB PO PRN (20:38)
[2019-10-31] MEDS: DOXYLAMINE SUCCINATE 25 MG PO SCH ×2 (01:16→22:26)
[2019-10-31] MEDS: HYDROcodone/Acetaminophen 5/325 mg Tablet PO PRN ×2 (06:28→13:26)
[2019-10-31] MEDS: Polyethylene Glycol 3350 17 GM Packet PO SCH (08:33)
[2019-10-31] MEDS: Lisinopril 5 MG TAB PO SCH (08:34)
[2019-10-31] MEDS: Amlodipine 5 MG TAB PO SCH (08:35)
[2019-10-31] MEDS: Atorvastatin Calcium 40 MG TAB PO SCH (20:46)
[2019-11-01] MEDS: HYDROcodone/Acetaminophen 5/325 mg Tablet PO PRN ×3 (02:28→14:18)
[2019-11-01] MEDS: Polyethylene Glycol 3350 17 GM Packet PO SCH ×2 (08:01→08:04)
[2019-11-01] MEDS: Amlodipine 5 MG TAB PO SCH (08:02)
[2019-11-01] MEDS: Lisinopril 5 MG TAB PO SCH (08:02)
--- NOTE | 2019-11-01 08:56 | PRG ---
DATE OF SERVICE: 11/01/2019 SUBJECTIVE: The patient said she did not rest as well last night. She is a little uncomfortable, but nothing severe. She continues to work with physical therapy. Yesterday, she only walked short distance a couple of times. A day before, she walked 80 to 100 feet several times with a rolling walker. She is transferring gradually better and usually has standby support or some minimal caregiver assistance. OBJECTIVE: GENERAL: The patient is sitting up in her Bindu chair. She is alert , appears in no distress. VITAL SIGNS: Her temp is 98.8, pulse 78, respirations 16, O2 saturation 95% on room air, blood pressure 122/58. LUNGS: Clear. HEART: Regular rate. EXTREMITIES: Lower extremities, the patient has chronic right footdrop. Knee has no effusion, no trace edema in the ankle. ASSESSMENT: 1. Nondisplaced periprosthetic fracture of the right medial femoral condyle secondary to a fall on 08/17/2019. a. Managed initially with 6 weeks of nonweightbearing in a knee immobilizer. b. Walking 80 to 100 feet with a rolling walker and standby assistance. Transferring with standby assistance and some times caregiver assistance as of 10/31. 2. Anemia of chronic illness. a. Received initially 2 units of packed RBCs on different occasions secondary to blood loss from the fracture. b. Transfuse 1 unit of packed RBCs on 10/26 for hemoglobin of 6.1. Post- transfusion hemoglobin was 7.8 on 10/27. c. Usual hemoglobin prior to her fracture was in the 9s. d. Stools for occult blood negative x2. One of three positive, which the patient feels like maybe hemorrhoid related. Serum ferritin 115. 3. Coronary artery disease, asymptomatic. 4. Hypertension. 5. Right footdrop. 6. Chronic low back pain secondary to spondylosis. PLAN: Continue present care. Continue to wear knee-high support hose. Job ID: [id number] [facility]
[2019-11-01] MEDS ORDERED: HYDROcodone/Acetaminophen 5/325 mg Tablet PO PRN (11:16)
[2019-11-01 14:09] VITALS: BMI 21.2
[2019-11-01] MEDS: Atorvastatin Calcium 40 MG TAB PO SCH (20:43)
[2019-11-02] MEDS: DOXYLAMINE SUCCINATE 25 MG PO SCH ×3 (02:08→22:30)
[2019-11-02] MEDS: HYDROcodone/Acetaminophen 5/325 mg Tablet PO PRN ×2 (05:37→11:55)
[2019-11-02] MEDS: Lisinopril 5 MG TAB PO SCH (09:56)
[2019-11-02] MEDS: Amlodipine 5 MG TAB PO SCH (09:56)
[2019-11-02] MEDS: Polyethylene Glycol 3350 17 GM Packet PO SCH (09:56)
--- NOTE | 2019-11-02 14:36 | PRG ---
DATE OF SERVICE: 11/02/2019 SUBJECTIVE: The patient says she is doing good. She had a little trouble sleeping last night. Today, she is up in physical therapy working with them. The therapist says she has been doing good. They did find that she was capable walking up to 150 feet, but then afterwards her legs hurt more, her foot swelled more and she could not do hardly anything the following day. They found that they can walk her up to 75 feet and she can consistently do this every day and she seemed to be making progress with this lower level. OBJECTIVE: GENERAL: The patient is alert, appears comfortable, in no distress. VITAL SIGNS: Her temp is 98.6, pulse 74, blood pressure 122/58, respirations are 18, O2 saturation 97% on room air, blood pressure 149/68. LUNGS: The patient has some rales at the right posterior base. EXTREMITIES: Trace edema in the right foot. ASSESSMENT: 1. Nondisplaced periprosthetic fracture of the right medial femoral condyle secondary to a fall on 08/17/2019. a. Managed initially with 6 weeks of nonweightbearing and a knee immobilizer. b. Walking more consistently 75 feet with a rolling walker and standby assistance. c. Transferring better with standby assistance as of 11/01. 2. Anemia of chronic illness. 3. Coronary artery disease, asymptomatic. 4. Hypertension. 5. Right foot drop. 6. Chronic low back pain secondary to spondylosis. PLAN: Continue PT. They have dropped back on the distance she was going, because it was a little too much for her. Now, she is doing better walking no more than 75 feet. They will gradually progress from there. Continue the general body strengthening. We will place her on incentive spirometry. Suspect the rales at the right base are just from atelectasis. [facility]: [id number] [facility]
[2019-11-02] MEDS: Atorvastatin Calcium 40 MG TAB PO SCH (20:47)
[2019-11-03 06:06] LABS: Eosinophils 10 % (0-10); Hemoglobin 7.9 g/dL (12.0-16.0); Hypochromia SLIGHT = 6-15 cells (100X) (0-5/hpf); Large Platelets SLIGHT; Lymphocytes 24 % (21-51); MDiff Complete? YES; Mean Corpuscular HGB CONC 30.7 g/dL (32.0-36.0); Mean Corpuscular Hemoglobin 29.1 pg (27.0-31.0); Mean Corpuscular Volume 94.7 fL (78.0-98.0); Monocytes 15 % (0-10); Neutrophil 51 % (42-75); Platelet Count 184 thou/uL (130-400); Platelet Morphology Comment Appears Adequate; Poikilocytosis MODERATE=16-30 cells (100X) (0-5/hpf); RBC Distribution Width 21.2 % (11.5-14.5); Red Blood Cell (RBC) Count 2.72 mill/uL (4.20-5.40); Schistocytes SLIGHT = 2-5 cells (100X) (0-1/hpf); Target Cells SLIGHT = 2-5 cells (100X) (0-1/hpf); White Blood Cell (WBC) Count 3.2 thou/uL (4.8-10.8)
[2019-11-03] MEDS: HYDROcodone/Acetaminophen 5/325 mg Tablet PO PRN ×2 (06:13→13:44)
[2019-11-03] MEDS: Lisinopril 5 MG TAB PO SCH (08:44)
[2019-11-03] MEDS: Amlodipine 5 MG TAB PO SCH (08:45)
[2019-11-03] MEDS: Polyethylene Glycol 3350 17 GM Packet PO SCH (08:46)
[2019-11-03] MEDS: Atorvastatin Calcium 40 MG TAB PO SCH (20:04)
[2019-11-03] MEDS: DOXYLAMINE SUCCINATE 25 MG PO SCH (22:28)
[2019-11-04] MEDS: HYDROcodone/Acetaminophen 5/325 mg Tablet PO PRN ×3 (02:33→13:14)
[2019-11-04] MEDS: Amlodipine 5 MG TAB PO SCH (08:46)
[2019-11-04] MEDS: Lisinopril 5 MG TAB PO SCH (08:47)
[2019-11-04] MEDS: Polyethylene Glycol 3350 17 GM Packet PO SCH (08:48)
[2019-11-04] MEDS: Atorvastatin Calcium 40 MG TAB PO SCH (20:31)
[2019-11-04] MEDS: DOXYLAMINE SUCCINATE 25 MG PO SCH (23:12)
[2019-11-05] MEDS: HYDROcodone/Acetaminophen 5/325 mg Tablet PO PRN ×2 (07:35→12:59)
[2019-11-05] MEDS: Polyethylene Glycol 3350 17 GM Packet PO SCH (09:18)
[2019-11-05] MEDS: Amlodipine 5 MG TAB PO SCH (09:19)
[2019-11-05] MEDS: Lisinopril 5 MG TAB PO SCH (09:19)
--- NOTE | 2019-11-05 11:39 | PRG ---
DATE OF SERVICE: 11/05/2019 SUBJECTIVE: The patient thinks she is doing better. She is transferring independently, is walking further. OBJECTIVE: GENERAL: The patient is alert, appears in no acute distress. VITAL SIGNS: Temperature 98.3, pulse 74, respirations 18, O2 saturation 95% on room air, blood pressure 128/63. LUNGS: Clear. HEART: Regular rate. EXTREMITIES: Right lower extremity, the patient is wearing her WOLF hose. There is no edema in that right leg. ASSESSMENT: 1. Nondisplaced periprosthetic fracture of the right medial femoral condyle secondary to a fall on 08/17/19. a. Managed initially with 6 weeks of nonweightbearing and a knee immobilizer. b. Walking better, up to 75 feet with a rolling walker and standby assistance. Transferring better with just standby assistance as of 11/04. 2. Anemia of chronic illness. 3. Coronary artery disease. 4. Hypertension. 5. Right footdrop, chronic. 6. Chronic low back pain secondary to spondylosis, stable. PLAN: Continue present care. Continue PT/OT. The patient is doing better and anticipating going home on Tuesday, 11/08. Job ID: [id number] MTDD
[2019-11-05] MEDS: Atorvastatin Calcium 40 MG TAB PO SCH (20:53)
[2019-11-06] MEDS: DOXYLAMINE SUCCINATE 25 MG PO SCH ×2 (01:33→22:40)
[2019-11-06] MEDS: HYDROcodone/Acetaminophen 5/325 mg Tablet PO PRN ×3 (03:51→23:59)
[2019-11-06] MEDS: Lisinopril 5 MG TAB PO SCH (08:20)
[2019-11-06] MEDS: Amlodipine 5 MG TAB PO SCH (08:20)
[2019-11-06] MEDS: Polyethylene Glycol 3350 17 GM Packet PO SCH (08:24)
[2019-11-06] MEDS: Atorvastatin Calcium 40 MG TAB PO SCH (20:01)
[2019-11-07] MEDS: HYDROcodone/Acetaminophen 5/325 mg Tablet PO PRN ×2 (08:27→20:15)
[2019-11-07] MEDS: Lisinopril 5 MG TAB PO SCH (08:29)
[2019-11-07] MEDS: Amlodipine 5 MG TAB PO SCH (08:30)
[2019-11-07] MEDS: Polyethylene Glycol 3350 17 GM Packet PO SCH (08:31)
[2019-11-07] MEDS: Atorvastatin Calcium 40 MG TAB PO SCH (20:15)
[2019-11-07] MEDS: DOXYLAMINE SUCCINATE 25 MG PO SCH (21:59)
[2019-11-08] MEDS: HYDROcodone/Acetaminophen 5/325 mg Tablet PO PRN ×3 (02:42→19:31)
[2019-11-08] MEDS: Lisinopril 5 MG TAB PO SCH (08:36)
[2019-11-08] MEDS: Amlodipine 5 MG TAB PO SCH (08:37)
[2019-11-08] MEDS: Polyethylene Glycol 3350 17 GM Packet PO SCH (08:38)
[2019-11-08 08:53] LABS: Hemoglobin 8.8 g/dL (12.0-16.0); Mean Corpuscular HGB CONC 30.3 g/dL (32.0-36.0); Mean Corpuscular Volume 95.7 fL (78.0-98.0); Mean Platelet Volume 11.6 fL (7.4-10.4); Platelet Count 223 thou/uL (130-400); RBC Distribution Width 20.8 % (11.5-14.5); Red Blood Cell (RBC) Count 3.05 mill/uL (4.20-5.40)
[2019-11-08 09:45] LABS: Anisocytosis MODERATE=16-30 cells (100X) (0-5/hpf); Band 1 % (5-11); Eosinophils 3 % (0-10); Giant Platelets SLIGHT; Hypochromia SLIGHT = 6-15 cells (100X) (0-5/hpf); Large Platelets MODERATE; Lymphocytes 14 % (21-51); MDiff Complete? YES; Monocytes 12 % (0-10); Neutrophil 61 % (42-75); Reactive Lymphocytes 9 % (0-10)
--- NOTE | 2019-11-08 10:44 | PRG ---
DATE OF SERVICE: 11/08/2019 SUBJECTIVE: The patient said she is doing all right today, just has some soreness in her legs. The patient says she is making progress with therapy, but she would think she still needs a few days before going home. Tentatively, she would like to put off any discharge for 3 or 4 more days. Certainly, she will benefit with the therapy. OBJECTIVE: GENERAL: The patient is alert, appears in no distress. VITAL SIGNS: Show a temperature of 97.7, pulse 75, respirations 18, O2 saturation 96% on room air, and blood pressure 111/59. Her weight is 112. Her admission weight was around 105. LUNGS: Clear. HEART: Regular rate. EXTREMITIES: There is trace edema in the right foot. No effusion on the knee. ASSESSMENT: 1. Nondisplaced periprosthetic fracture of the right medial femoral condyle secondary to a fall on 08/17/2019. a. Manage initially with 6 weeks of nonweightbearing in a knee immobilizer. b. Walking better, using a walker. Walking up to 75 feet with standby assistance. Transferring better, with just standby assistance as of 11/07. 2. Anemia of chronic illness. 3. Coronary artery disease. a. Asymptomatic. 4. Hypertension. 5. Right footdrop, chronic. 6. Chronic low back pain secondary to spondylosis. PLAN: Continue PT, OT. We will recheck CBC today. The patient's hydrocodone will be reduced from 5/325 from two every 4 hours for pain to one. Job ID: [id number] MTDD
[2019-11-08] MEDS: Atorvastatin Calcium 40 MG TAB PO SCH (21:26)
[2019-11-08] MEDS: DOXYLAMINE SUCCINATE 25 MG PO SCH (21:27)
[2019-11-08] MEDS: Acetaminophen 325 MG TAB PO PRN (23:59)
[2019-11-09] MEDS: HYDROcodone/Acetaminophen 5/325 mg Tablet PO PRN ×2 (00:51→09:10)
[2019-11-09] MEDS: Lisinopril 5 MG TAB PO SCH (08:54)
[2019-11-09] MEDS: Amlodipine 5 MG TAB PO SCH (08:54)
[2019-11-09 08:55] VITALS: BP 141/61
[2019-11-09] MEDS: Polyethylene Glycol 3350 17 GM Packet PO SCH (08:55)
[2019-11-09 09:01] VITALS: TEMP 97.8
--- NOTE | 2019-11-09 15:22 | DIS ---
DATE OF ADMISSION: 08/21/2019 DATE OF DISCHARGE: 11/09/2019 FINAL DIAGNOSES: 1. Nondisplaced periprosthetic fracture of the right medial condyle secondary to a fall on 08/17/2019. a. Managed initially with 6 weeks of nonweightbearing in a knee immobilizer. b. Walking up to 100 feet with a walker. Transferring independently with standby assistance as of 11/09/2019. 2. Anemia of chronic illness. a. Hemoglobin usually in the 9s. b. Required 1 unit of blood transfusion on 08/19 for hemoglobin of 6.5 secondary to acute blood loss from the fracture. Required transfusion of a second unit on 09/19 for hemoglobin of 6.3. Required a 3rd unit on 10/27/19. c. Serum ferritin 124. Stools for occult blood, 2 of 3 were negative, 1 positive, probably from her hemorrhoids. d. Hemoglobin 8.8 on 11/08/2019. 3. Coronary artery disease, asymptomatic. 4. Hypertension, controlled. 5. Overactive bladder. 6. Spondylosis of the lumbar spine. 7. Chronic right footdrop. REASON FOR ADMISSION: The patient is an 84-year-old white female, who resides at home with her and is independent of all of her ADLs. She has a history of coronary artery disease, which is asymptomatic, hypertension, and anemia of chronic illness, spondylosis of the lumbar spine, and a chronic right footdrop that she has had for years. The patient had a fall on 08/17/2019, that resulted in a nondisplaced periprosthetic fracture of the right femoral condyle secondary to a fall on 08/17/2019. The patient was initially evaluated in the emergency room, and the orthopedic surgeon reviewed x-rays with the ER doctor and recommended treating her in a knee immobilizer and 6 weeks of nonweightbearing as recommended. The patient was admitted at [facility] for pain control and management of the fracture. She was nonambulatory. HOSPITAL COURSE: The patient was managed initially with hydrocodone 10/325 one or two every 6 hours as needed for pain. She was placed in a knee immobilizer and it required assistance with all of her ADLs. Initially, she required 6 weeks of the nonweightbearing and knee immobilizer. She saw the orthopedic surgeon in followup after the first couple of weeks and re-x-rays was done and showed no dislocation of the fracture. She was then placed in a metal knee immobilizer with about 20 degrees of flexion and completed the 6 weeks of nonweightbearing with this. The effusion in the knee gradually resolved. Physical Therapy worked with her for upper body strengthening and strengthening of her left leg and gradually they began working with her walking by hopping, which she had difficult time initially. She initially was managed with nonweightbearing for 6 weeks, was seen in followup by orthopedic surgeon, who removed the splint and told her she could begin some partial weightbearing, that would be gradually increased as tolerated. Eventually, she was allowed full weightbearing in that right foot. Physical Therapy worked with her , and she made gradual slow progress. By the time of her discharge, she was ambulating up to 100 feet with a walker and just standby assistance and was transferring independently. Her walking was complicated by the chronic right footdrop, she has had for many years. She will need an AFO to help manage this , but right now with the coronavirus pandemic, we will delay her going to the prosthesis people for fitting of this to limit her exposure. Her pain was well controlled and eventually was able to be managed with the hydrocodone , one maybe twice today, usually after her therapy. She did develop increased foot pain. X-ray just showed demineralization and arthritic change, but no fracture. She had a venous Doppler of her right leg on 10/15 that showed no evidence of DVT. This pain was managed with just proper shoe wear and gradually resolved. She did have some chronic edema in the right lower leg and foot that was managed with knee-high support hose. She has a history of an anemia of chronic illness, usually her hemoglobin is in the 9s. She did require transfusion of 1 unit on 08/19 for a hemoglobin of 6.5, and then, a second unit on 09/19. These were felt to be secondary to the blood loss that had occurred from the fracture. She did also require a third unit of blood on 10/26. Her hemoglobin on 11/07, was up to 8.8. She had no signs of bleeding. Her serum ferritin was 128. This was re-checked on 10/26 and was 08/29. Her stools for occult blood, 2 of the 3 were negative, and third was initially read as negative, later then read as positive. This was felt to be from some hemorrhoids that the patient has. If we continue to see problems with drop in this, we will arrange for Gastroenterology consultation and/or Hematology consult. The patient continued to improve, and during her hospitalization, had no trouble with any hypertensive episodes or chest pain. By 11/08, her condition improved, where she felt like she could manage at home. She lives with her , who will assist her and also her daughter who lives next door will be assisting her. She will continue with outpatient physical therapy. DISPOSITION: DIET: Regular diet, no added salt. ACTIVITIES: Ambulate with the use of a walker. Will later need to be referred to the prosthesis consults in [place] for fitting of an AFO for the right footdrop. MEDICATIONS: 1. Acetaminophen 325 mg two every 4 hours as needed. 2. Amlodipine 5 mg daily. 3. Atorvastatin 40 mg at bedtime. 4. Unisom sleep aid 25 mg at bedtime as needed. 5. Hydrocodone-acetaminophen 05/325 one twice today as needed. 6. Lisinopril 2.5 mg daily. 7. Pantoprazole 40 mg daily. 8. MiraLAX 17 g 8 ounces water daily. 9. Ranexa 1000 mg b.i.d. 10. Ergocalciferol 1.25 mg every 7 days. FOLLOWUP: The patient will check with my office for followup check in 2 weeks. If necessary, this can be done as a telephone visit in the event that the coronavirus pandemic is ongoing. CODE STATUS: Full code. Job ID: [id number] MTDD
== END 2019-11-09 12:50 | disposition home or self-care (01) | DRG 534 ==
LOC: MADMS 12:43
PROVIDERS: ADMIT Family Medicine; ATTEND Family Medicine
DX: S72.434A Nondisplaced fracture of medial condyle of right femur, initial encounter for closed fracture (principal); M97.8XXA Periprosthetic fracture around other internal prosthetic joint, initial encounter; D62 Acute posthemorrhagic anemia; W18.39XA Other fall on same level, initial encounter; I25.10 Atherosclerotic heart disease of native coronary artery without angina pectoris; I10 Essential (primary) hypertension; N32.81 Overactive bladder; M47.896 Other spondylosis, lumbar region; K64.9 Unspecified hemorrhoids; D63.8 Anemia in other chronic diseases classified elsewhere; G89.29 Other chronic pain
CPT/HCPCS: 36415; 36430; 80048; 81001; 82274; 82728; 83540; 83550; 85025; 85060; 86850; 86870; 86900; 86901; 86922; P9016; Q0162

== ENCOUNTER 2020-10-24 14:18 | Emergency (ER) | payer MEDICARE, OTHER ==
[2020-10-24 14:55] LABS: ALT (SGPT) 50 U/L (8-55); AST (SGOT) 73 U/L (5-34); Albumin 3.6 g/dL (3.4-4.8); Alkaline Phosphatase 90 U/L (40-110); Anion Gap 19 mmol/L (10-20); BUN (Urea Nitrogen) 15 mg/dL (9.8-20.1); Bilirubin, Total 0.8 mg/dL (0.2-1.2); Calc. Creatinine Clearance 0 mL/min (70-130); Calcium 7.9 mg/dL (7.8-10.44); Carbon Dioxide 18 mmol/L (23-31); Chloride 105 mmol/L (98-107); Glucose 133 mg/dL (83-110); Potassium 3.7 mmol/L (3.5-5.1); Protein, Total 6.6 g/dL (5.8-8.1); Sodium 138 mmol/L (136-145)
[2020-10-24 15:03] LABS: Hemoglobin 3.1 g/dL (12.0-16.0); INR-International Normal Ratio 1.4; Mean Corpuscular HGB CONC 29.1 g/dL (32.0-36.0); Mean Corpuscular Hemoglobin 29.3 pg (27.0-31.0); Mean Corpuscular Volume 100.7 fL (78.0-98.0); Mean Platelet Volume 15.5 fL (7.4-10.4); PTT 35.6 sec (22.9-36.1); Platelet Count 34 thou/uL (130-400); Prothrombin Time 17.1 sec (12.0-14.7); RBC Distribution Width 22.7 % (11.5-14.5); Red Blood Cell (RBC) Count 1.06 mill/uL (4.20-5.40); White Blood Cell (WBC) Count 3.4 thou/uL (4.8-10.8)
[2020-10-24 15:04] LABS: Manual Diff?? YES
[2020-10-24 15:18] LABS: Eosinophils 2 % (0-10); Lymphocytes 41 % (21-51); Monocytes 5 % (0-10); Neutrophil 52 % (42-75)
[2020-10-24 15:19] LABS: Anisocytosis MODERATE=16-30 cells (100X) (0-5/hpf); Hypochromia MODERATE=16-30 cells (100X) (0-5/hpf); Polychromasia MARKED = >4 cells (100X) (0-2/hpf)
[2020-10-24 15:20] LABS: Macrocytosis SLIGHT = 6-15 cells (100X) (0-5/hpf); Platelet Morphology Comment Appears Decreased
[2020-10-24 15:21] LABS: MDiff Complete? YES
== END 2020-10-24 16:10 | disposition short-term general hospital (02) ==
LOC: MADERS 14:18
DX: D61.818 Other pancytopenia (principal); D69.6 Thrombocytopenia, unspecified; D64.89 Other specified anemias; I10 Essential (primary) hypertension; E78.00 Pure hypercholesterolemia, unspecified; Z79.899 Other long term (current) drug therapy
CPT/HCPCS: 71045; 84484; 85060; 85610; 85730; 86850; 86900; 86901

== ENCOUNTER 2020-12-10 22:45 | Emergency (ER) | payer MEDICARE | END 2020-12-11 01:21 | disposition short-term general hospital (02) | LOC: MADERS 22:45 | DX: D61.818 Other pancytopenia (principal); D46.9 Myelodysplastic syndrome, unspecified; M19.90 Unspecified osteoarthritis, unspecified site; I10 Essential (primary) hypertension; E78.5 Hyperlipidemia, unspecified; Z85.3 Personal history of malignant neoplasm of breast | CPT/HCPCS: 99284 ==

== ENCOUNTER 2020-12-24 13:03 | Outpatient (CLI) | payer MEDICARE ==
[2020-12-24 13:51] LABS: Anisocytosis SLIGHT = 6-15 cells (100X) (0-5/hpf); Eosinophils 3 % (0-10); Hemoglobin 9.7 g/dL (12.0-16.0); Lymphocytes 67 % (21-51); MDiff Complete? YES; Mean Corpuscular HGB CONC 30.5 g/dL (32.0-36.0); Mean Corpuscular Hemoglobin 29.7 pg (27.0-31.0); Mean Corpuscular Volume 97.2 fL (78.0-98.0); Monocytes 5 % (0-10); Neutrophil 25 % (42-75); Ovalocytes SLIGHT = 2-5 cells (100X) (0-1/hpf); Platelet Morphology Comment rare platelets seen; Poikilocytosis SLIGHT = 6-15 cells (100X) (0-5/hpf); RBC Distribution Width 17.1 % (11.5-14.5); RBC Morphology hx of low wbc count; Red Blood Cell (RBC) Count 3.32 mill/uL (4.20-5.40); Rouleaux Formation SLIGHT = 1-5 cells (100X) (None Seen); Tear Drops SLIGHT = 2-5 cells (100X) (0-1/hpf)
[2020-12-24 13:53] LABS: White Blood Cell (WBC) Count 0.6 thou/uL (4.8-10.8)
[2020-12-24 13:54] LABS: Platelet Count 6 thou/uL (130-400)
== END 2020-12-24 13:04 | disposition home or self-care (01) ==
LOC: MADLAB 13:03
PROVIDERS: ATTEND Internal Medicine Hematology & Oncology
DX: D46.Z Other myelodysplastic syndromes (principal)
CPT/HCPCS: 36415; 85025

== ENCOUNTER 2021-01-09 12:06 | Observation (INO) | payer MEDICARE ==
[2021-01-09 13:14] VITALS: BMI 20.7
[2021-01-09] MEDS ORDERED: Loperamide HCl 2 MG CAP PO PRN (14:12)
[2021-01-09] MEDS ORDERED: Polyethylene Glycol 3350 17 GM Packet PO PRN (14:12)
[2021-01-09] MEDS ORDERED: Ondansetron ODT 4 MG TAB PO PRN (14:56)
[2021-01-09] MEDS ORDERED: DOXYLAMINE SUCCINATE 25 MG PO PRN (15:10)
[2021-01-09] MEDS: Acetaminophen 325 MG TAB PO PRN ×2 (16:24→22:22)
[2021-01-09] MEDS: Carvedilol 3.125 MG TAB PO SCH (16:26)
[2021-01-09] MEDS: Folic Acid 1 MG TAB PO SCH (21:21)
[2021-01-09] MEDS: Atorvastatin Calcium 40 MG TAB PO SCH (21:21)
[2021-01-09] MEDS ORDERED: Melatonin 3 MG TAB PO PRN (22:08)
[2021-01-10 05:53] LABS: #Lymphocytes 0.6 thou/uL (1.20-3.40); #Neutrophils 0.7 thou/uL (1.40-6.50); %Basophils 0.3 % (0.0-1.0); %Eosinophils 2.7 % (0.0-10.0); %Lymphocytes 43.4 % (21.0-51.0); %Monocytes 1.1 % (0.0-10.0); %Neutrophils 52.6 % (42.0-75.0); Hemoglobin 6.3 g/dL (12.0-16.0); Mean Corpuscular HGB CONC 33.1 g/dL (32.0-36.0); Mean Corpuscular Hemoglobin 31.3 pg (27.0-31.0); Mean Corpuscular Volume 94.4 fL (78.0-98.0); Mean Platelet Volume 7.6 fL (7.4-10.4); Platelet Count 108 thou/uL (130-400); RBC Distribution Width 13.6 % (11.5-14.5); Red Blood Cell (RBC) Count 2.02 mill/uL (4.20-5.40); White Blood Cell (WBC) Count 1.4 thou/uL (4.8-10.8)
[2021-01-10 05:54] LABS: Anisocytosis MODERATE=16-30 cells (100X) (0-5/hpf); Burr Cells MODERATE= 6-15 cells (100X) (0-1/hpf); Hypochromia MODERATE=16-30 cells (100X) (0-5/hpf); MDiff Complete? YES; Platelet Morphology Comment Appears Decreased; Poikilocytosis MODERATE=16-30 cells (100X) (0-5/hpf)
[2021-01-10] MEDS: HYDROcodone/Acetaminophen 10/325 mg Tablet PO PRN (07:48)
[2021-01-10] MEDS: Carvedilol 3.125 MG TAB PO SCH ×2 (07:49→17:22)
[2021-01-10] MEDS ORDERED: Amlodipine 5 MG TAB PO SCH (09:00)
[2021-01-10] MEDS ORDERED: Furosemide 20 MG TAB PO SCH (09:00)
[2021-01-10] MEDS: Folic Acid 1 MG TAB PO SCH ×2 (09:15→20:37)
[2021-01-10] MEDS: Acetaminophen 325 MG TAB PO PRN ×2 (15:25→22:02)
[2021-01-10] MEDS: Atorvastatin Calcium 40 MG TAB PO SCH (20:37)
[2021-01-10 22:07] LABS: Hemoglobin 7.6 g/dL (12.0-16.0); Platelet Count 72 thou/uL (130-400)
[2021-01-11] MEDS: HYDROcodone/Acetaminophen 10/325 mg Tablet PO PRN (03:32)
[2021-01-11 05:38] LABS: Platelet Count 67 thou/uL (130-400)
[2021-01-11] MEDS: Folic Acid 1 MG TAB PO SCH (09:54)
[2021-01-11] MEDS: Carvedilol 3.125 MG TAB PO SCH (09:54)
[2021-01-11] MEDS: Acetaminophen 325 MG TAB PO PRN (09:55)
[2021-01-11 10:49] VITALS: BP 148/66; TEMP 97.3
[2021-01-13] MEDS ORDERED: Decitabine/Cedazuridine [Inqovi 35 Mg-100 Mg Tablet] PO SCH (06:00)
== END 2021-01-11 11:30 | disposition home or self-care (01) ==
LOC: MADMS 12:06
PROVIDERS: ADMIT Family Medicine; ATTEND Family Medicine
DX: D61.818 Other pancytopenia (principal); D46.Z Other myelodysplastic syndromes; M06.9 Rheumatoid arthritis, unspecified; I25.10 Atherosclerotic heart disease of native coronary artery without angina pectoris; I25.5 Ischemic cardiomyopathy; E78.5 Hyperlipidemia, unspecified; Z79.899 Other long term (current) drug therapy; Z88.5 Allergy status to narcotic agent
CPT/HCPCS: 36415; 36430; 85014; 85018; 85025; 85049; 86850; 86860; 86870; 86880; 86900; 86901; 86905; 86922; 86970; G0378; P9016; P9035

== ENCOUNTER 2021-01-14 13:05 | Outpatient (CLI) | payer MEDICARE ==
[2021-01-14 13:36] LABS: Hemoglobin 9.8 g/dL (12.0-16.0); Mean Corpuscular HGB CONC 32.3 g/dL (32.0-36.0); Mean Corpuscular Hemoglobin 30.5 pg (27.0-31.0); Mean Corpuscular Volume 94.3 fL (78.0-98.0); Mean Platelet Volume 12.1 fL (7.4-10.4); RBC Distribution Width 13.6 % (11.5-14.5); Red Blood Cell (RBC) Count 3.21 mill/uL (4.20-5.40); White Blood Cell (WBC) Count 1.2 thou/uL (4.8-10.8)
[2021-01-14 13:49] LABS: Platelet Count 18 thou/uL (130-400)
== END 2021-01-14 13:06 | disposition home or self-care (01) ==
LOC: MADLAB 13:05
PROVIDERS: ATTEND Internal Medicine Hematology & Oncology
DX: D46.Z Other myelodysplastic syndromes (principal)
CPT/HCPCS: 36415; 85027

== ENCOUNTER 2021-01-21 13:17 | Outpatient (CLI) | payer MEDICARE ==
[2021-01-21 14:04] LABS: Hemoglobin 8.2 g/dL (12.0-16.0); Mean Corpuscular HGB CONC 31.5 g/dL (32.0-36.0); Mean Corpuscular Volume 95.4 fL (78.0-98.0); Mean Platelet Volume 13.1 fL (7.4-10.4); Platelet Count Less than 7 thou/uL (130-400); RBC Distribution Width 13.6 % (11.5-14.5); Red Blood Cell (RBC) Count 2.74 mill/uL (4.20-5.40)
[2021-01-21 14:05] LABS: White Blood Cell (WBC) Count 1.1 thou/uL (4.8-10.8)
== END 2021-01-21 13:18 | disposition home or self-care (01) ==
LOC: MADLAB 13:17
PROVIDERS: ATTEND Internal Medicine Hematology & Oncology
DX: D46.Z Other myelodysplastic syndromes (principal)
CPT/HCPCS: 36415; 36430; 85027; 86900; 86901; P9035

== ENCOUNTER → 2021-01-22 | Day surgery (SDC) | payer MEDICARE ==
[2021-01-22 16:18] LABS: Hemoglobin 7.6 g/dL (12.0-16.0); Mean Corpuscular HGB CONC 32.2 g/dL (32.0-36.0); Mean Corpuscular Hemoglobin 30.5 pg (27.0-31.0); Mean Corpuscular Volume 94.7 fL (78.0-98.0); Mean Platelet Volume 9.6 fL (7.4-10.4); Platelet Count 116 thou/uL (130-400); RBC Distribution Width 13.4 % (11.5-14.5); Red Blood Cell (RBC) Count 2.48 mill/uL (4.20-5.40); White Blood Cell (WBC) Count 0.6 thou/uL (4.8-10.8)
== END ==
LOC: MADER/OP 12:49
PROVIDERS: ATTEND Family Medicine
PROC: 30233R1 Transfusion of Nonautologous Platelets into Peripheral Vein, Percutaneous Approach (ICD-10-PCS; principal; 2021-01-22)
DX: D46.Z Other myelodysplastic syndromes (principal); Z88.5 Allergy status to narcotic agent
CPT/HCPCS: 85027

== ENCOUNTER 2021-01-24 14:33 | Emergency (ER) | payer MEDICARE ==
[2021-01-24] MEDS ORDERED: Ibuprofen 600 MG TAB ONE (14:48)
[2021-01-24] MEDS ORDERED: Acetaminophen 325 MG TAB ONE (14:48)
[2021-01-24] MEDS ORDERED: HYDROcodone/Acetaminophen 5/325 mg Tablet ONE (14:48)
[2021-01-24] MEDS ORDERED: Fentanyl 100 MCG/2 ML VIAL ONE ×3 (15:37→19:40)
[2021-01-24 16:45] LABS: Anisocytosis SLIGHT = 6-15 cells (100X) (0-5/hpf); Eosinophils 8 % (0-10); Hemoglobin 7.2 g/dL (12.0-16.0); Hypochromia SLIGHT = 6-15 cells (100X) (0-5/hpf); Lymphocytes 42 % (21-51); MDiff Complete? YES; Mean Corpuscular HGB CONC 32.7 g/dL (32.0-36.0); Mean Corpuscular Hemoglobin 30.7 pg (27.0-31.0); Mean Corpuscular Volume 93.9 fL (78.0-98.0); Mean Platelet Volume 10.9 fL (7.4-10.4); Neutrophil 50 % (42-75); Platelet Count 51 thou/uL (130-400); Platelet Morphology Comment Appears Decreased; RBC Distribution Width 13.2 % (11.5-14.5); Red Blood Cell (RBC) Count 2.34 mill/uL (4.20-5.40); White Blood Cell (WBC) Count 0.9 thou/uL (4.8-10.8)
[2021-01-24 16:49] LABS: ALT (SGPT) 11 U/L (8-55); AST (SGOT) 14 U/L (5-34); Albumin 3.5 g/dL (3.4-4.8); Alkaline Phosphatase 123 U/L (40-110); Anion Gap 17 mmol/L (10-20); BUN (Urea Nitrogen) 16 mg/dL (9.8-20.1); Bilirubin, Total 0.7 mg/dL (0.2-1.2); Calc. Creatinine Clearance 0 mL/min (70-130); Calcium 8.6 mg/dL (7.8-10.44); Carbon Dioxide 19 mmol/L (23-31); Chloride 109 mmol/L (98-107); Globulin 3.5 g/dL (2.4-3.5); Glucose 101 mg/dL (83-110); Potassium 4.6 mmol/L (3.5-5.1); Sodium 140 mmol/L (136-145)
== END 2021-01-24 19:58 | disposition short-term general hospital (02) ==
LOC: MADERS 14:33
DX: M25.551 Pain in right hip (principal); C95.90 Leukemia, unspecified not having achieved remission; D63.8 Anemia in other chronic diseases classified elsewhere; M54.5 Low back pain; G89.29 Other chronic pain; I10 Essential (primary) hypertension; Z85.3 Personal history of malignant neoplasm of breast; E78.5 Hyperlipidemia, unspecified; M19.90 Unspecified osteoarthritis, unspecified site; Z79.899 Other long term (current) drug therapy
CPT/HCPCS: 72170; 80053; 85025; 96374; 96376; J3010

== ENCOUNTER 2021-01-30 18:45 | Inpatient (IN) | payer MEDICARE ==
[2021-01-30] MEDS ORDERED: Acetaminophen 325 MG TAB PO PRN (21:30)
[2021-01-30] MEDS ORDERED: DOXYLAMINE 25 MG PO PRN (21:31)
[2021-01-30] MEDS ORDERED: Ondansetron ODT 4 MG TAB PO PRN (21:32)
[2021-01-31] MEDS: HYDROcodone/Acetaminophen 10/325 mg Tablet PO PRN ×2 (04:54→10:10)
[2021-01-31 05:42] LABS: ALT (SGPT) 23 U/L (8-55); AST (SGOT) 13 U/L (5-34); Albumin 3.3 g/dL (3.4-4.8); Alkaline Phosphatase 85 U/L (40-110); Anion Gap 12 mmol/L (10-20); Anisocytosis SLIGHT = 6-15 cells (100X) (0-5/hpf); BUN (Urea Nitrogen) 12 mg/dL (9.8-20.1); Bilirubin, Total 0.7 mg/dL (0.2-1.2); Calc. Creatinine Clearance 0 mL/min (70-130); Calcium 8.8 mg/dL (7.8-10.44); Carbon Dioxide 30 mmol/L (23-31); Chloride 102 mmol/L (98-107); Eosinophils 8 % (0-10); Glucose 93 mg/dL (83-110); Hemoglobin 9.1 g/dL (12.0-16.0); Hypochromia SLIGHT = 6-15 cells (100X) (0-5/hpf); MDiff Complete? YES; Mean Corpuscular HGB CONC 33.7 g/dL (32.0-36.0); Mean Corpuscular Hemoglobin 31.8 pg (27.0-31.0); Mean Corpuscular Volume 94.5 fL (78.0-98.0); Mean Platelet Volume 12.9 fL (7.4-10.4); Monocytes 3 % (0-10); Neutrophil 9 % (42-75); Platelet Count 11 thou/uL (130-400); Platelet Morphology Comment Appears Decreased; Protein, Total 6.3 g/dL (5.8-8.1); RBC Distribution Width 12.8 % (11.5-14.5); Red Blood Cell (RBC) Count 2.86 mill/uL (4.20-5.40); Sodium 140 mmol/L (136-145); White Blood Cell (WBC) Count 0.6 thou/uL (4.8-10.8)
[2021-01-31 05:44] LABS: Lymphocytes 80 % (21-51)
[2021-01-31] MEDS ORDERED: Lidocaine 5% Patch TD SCH (09:00)
[2021-01-31] MEDS: Amlodipine 5 MG TAB PO SCH (09:04)
[2021-01-31] MEDS: Carvedilol 3.125 MG TAB PO SCH ×2 (09:04→17:32)
[2021-01-31] MEDS: Spironolactone 25 MG TAB PO SCH (09:04)
[2021-01-31] MEDS: Folic Acid 1 MG TAB PO SCH ×2 (09:05→21:23)
[2021-01-31] MEDS: predniSONE 20 MG TAB PO SCH (09:05)
[2021-01-31] MEDS: Gabapentin 100 MG CAP PO SCH (09:05)
[2021-01-31] MEDS: Lidocaine 5% Patch TD SCH (09:06)
[2021-01-31 15:00] LABS: Hemoglobin 8.3 g/dL (12.0-16.0); Platelet Count 130 thou/uL (130-400)
[2021-01-31] MEDS ORDERED: Transdermal Patch Removal TOP SCH (21:00)
[2021-01-31] MEDS: Atorvastatin Calcium 40 MG TAB PO SCH (21:23)
[2021-02-01] MEDS: HYDROcodone/Acetaminophen 10/325 mg Tablet PO PRN (02:19)
[2021-02-01] MEDS: Amlodipine 5 MG TAB PO SCH (08:36)
[2021-02-01] MEDS: predniSONE 20 MG TAB PO SCH (08:36)
[2021-02-01] MEDS: Gabapentin 100 MG CAP PO SCH (08:36)
[2021-02-01] MEDS: Folic Acid 1 MG TAB PO SCH ×2 (08:36→21:17)
[2021-02-01] MEDS: Carvedilol 3.125 MG TAB PO SCH ×2 (08:36→16:58)
[2021-02-01] MEDS: Spironolactone 25 MG TAB PO SCH (08:36)
[2021-02-01] MEDS: Lidocaine 5% Patch TD SCH (08:38)
[2021-02-01] MEDS: Melatonin 3 MG TAB PO PRN (21:17)
[2021-02-01] MEDS: Atorvastatin Calcium 40 MG TAB PO SCH (21:17)
[2021-02-01] MEDS: Transdermal Patch Removal TOP SCH (21:23)
[2021-02-02] MEDS: HYDROcodone/Acetaminophen 10/325 mg Tablet PO PRN (06:07)
[2021-02-02 07:16] LABS: Hemoglobin 7.5 g/dL (12.0-16.0); Mean Corpuscular HGB CONC 31.2 g/dL (32.0-36.0); Mean Corpuscular Hemoglobin 29.8 pg (27.0-31.0); Mean Corpuscular Volume 95.6 fL (78.0-98.0); Mean Platelet Volume 7.4 fL (7.4-10.4); Platelet Count 71 thou/uL (130-400); Red Blood Cell (RBC) Count 2.45 mill/uL (4.20-5.40); White Blood Cell (WBC) Count 0.5 thou/uL (4.8-10.8)
[2021-02-02 07:30] LABS: MDiff Complete? YES; Manual Diff?? YES; Neutrophil 16 % (42-75)
[2021-02-02 07:31] LABS: Anisocytosis SLIGHT = 6-15 cells (100X) (0-5/hpf); Eosinophils 2 % (0-10); Lymphocytes 80 % (21-51); Monocytes 2 % (0-10); Platelet Morphology Comment Appears Decreased
[2021-02-02] MEDS: Spironolactone 25 MG TAB PO SCH (08:12)
[2021-02-02] MEDS: Gabapentin 100 MG CAP PO SCH (08:13)
[2021-02-02] MEDS: predniSONE 20 MG TAB PO SCH (08:13)
[2021-02-02] MEDS: Amlodipine 5 MG TAB PO SCH (08:14)
[2021-02-02] MEDS: Carvedilol 3.125 MG TAB PO SCH ×2 (08:14→16:54)
[2021-02-02] MEDS: Folic Acid 1 MG TAB PO SCH ×2 (08:14→20:17)
[2021-02-02] MEDS: Lidocaine 5% Patch TD SCH (08:15)
[2021-02-02 10:35] VITALS: BMI 20.7
[2021-02-02] MEDS: Atorvastatin Calcium 40 MG TAB PO SCH (20:16)
[2021-02-02] MEDS: Transdermal Patch Removal TOP SCH (20:18)
[2021-02-02] MEDS: Melatonin 3 MG TAB PO PRN (21:35)
[2021-02-03] MEDS: HYDROcodone/Acetaminophen 10/325 mg Tablet PO PRN (05:22)
[2021-02-03 05:37] LABS: Hemoglobin 7.9 g/dL (12.0-16.0); Mean Corpuscular HGB CONC 33.7 g/dL (32.0-36.0); Mean Corpuscular Hemoglobin 31.8 pg (27.0-31.0); Mean Corpuscular Volume 94.2 fL (78.0-98.0); Mean Platelet Volume 9.5 fL (7.4-10.4); Platelet Count 55 thou/uL (130-400); RBC Distribution Width 12.9 % (11.5-14.5); Red Blood Cell (RBC) Count 2.49 mill/uL (4.20-5.40); White Blood Cell (WBC) Count 0.6 thou/uL (4.8-10.8)
[2021-02-03 05:38] LABS: Anisocytosis SLIGHT = 6-15 cells (100X) (0-5/hpf); Eosinophils 2 % (0-10); Lymphocytes 78 % (21-51); MDiff Complete? YES; Monocytes 2 % (0-10); Neutrophil 18 % (42-75); Platelet Morphology Comment Appears Decreased
[2021-02-03] MEDS: Lidocaine 5% Patch TD SCH (09:17)
[2021-02-03] MEDS: Gabapentin 100 MG CAP PO SCH (09:18)
[2021-02-03] MEDS: Folic Acid 1 MG TAB PO SCH ×2 (09:18→20:20)
[2021-02-03] MEDS: predniSONE 20 MG TAB PO SCH (09:18)
[2021-02-03] MEDS: Carvedilol 3.125 MG TAB PO SCH ×2 (09:19→16:57)
[2021-02-03] MEDS: Amlodipine 5 MG TAB PO SCH (09:19)
[2021-02-03] MEDS: Spironolactone 25 MG TAB PO SCH (09:19)
[2021-02-03] MEDS: Melatonin 3 MG TAB PO PRN (20:20)
[2021-02-03] MEDS: Atorvastatin Calcium 40 MG TAB PO SCH (20:20)
[2021-02-03] MEDS: Transdermal Patch Removal TOP SCH (21:02)
[2021-02-04] MEDS: HYDROcodone/Acetaminophen 10/325 mg Tablet PO PRN (05:35)
[2021-02-04] MEDS: Senokot S 8.6-50 MG TAB PO PRN (08:40)
[2021-02-04] MEDS: Carvedilol 3.125 MG TAB PO SCH ×2 (08:40→17:03)
[2021-02-04] MEDS: predniSONE 20 MG TAB PO SCH (08:41)
[2021-02-04] MEDS: Folic Acid 1 MG TAB PO SCH ×2 (08:42→20:18)
[2021-02-04] MEDS: Gabapentin 100 MG CAP PO SCH (08:42)
[2021-02-04] MEDS: Amlodipine 5 MG TAB PO SCH (08:42)
[2021-02-04] MEDS: Spironolactone 25 MG TAB PO SCH (08:42)
[2021-02-04] MEDS: Lidocaine 5% Patch TD SCH (08:43)
[2021-02-04] MEDS: Atorvastatin Calcium 40 MG TAB PO SCH (20:18)
[2021-02-04] MEDS: Transdermal Patch Removal TOP SCH (20:19)
[2021-02-04] MEDS: Melatonin 3 MG TAB PO PRN (20:57)
[2021-02-05 05:42] LABS: Anisocytosis SLIGHT = 6-15 cells (100X) (0-5/hpf); Band 2 % (5-11); Eosinophils 8 % (0-10); Hemoglobin 7.8 g/dL (12.0-16.0); Lymphocytes 74 % (21-51); MDiff Complete? YES; Mean Corpuscular HGB CONC 32.8 g/dL (32.0-36.0); Mean Corpuscular Hemoglobin 31.4 pg (27.0-31.0); Mean Corpuscular Volume 95.6 fL (78.0-98.0); Mean Platelet Volume 8.1 fL (7.4-10.4); Neutrophil 16 % (42-75); Platelet Count 24 thou/uL (130-400); Platelet Morphology Comment Appears Decreased; RBC Distribution Width 13.1 % (11.5-14.5); Red Blood Cell (RBC) Count 2.47 mill/uL (4.20-5.40); White Blood Cell (WBC) Count 0.6 thou/uL (4.8-10.8)
[2021-02-05] MEDS: Gabapentin 100 MG CAP PO SCH (07:52)
[2021-02-05] MEDS: predniSONE 20 MG TAB PO SCH (07:52)
[2021-02-05] MEDS: Spironolactone 25 MG TAB PO SCH (07:52)
[2021-02-05] MEDS: Amlodipine 5 MG TAB PO SCH (07:52)
[2021-02-05] MEDS: Carvedilol 3.125 MG TAB PO SCH (07:52)
[2021-02-05] MEDS: Folic Acid 1 MG TAB PO SCH (07:52)
[2021-02-05] MEDS: HYDROcodone/Acetaminophen 10/325 mg Tablet PO PRN (07:53)
[2021-02-05] MEDS: Lidocaine 5% Patch TD SCH (07:53)
[2021-02-05] MEDS: Senokot S 8.6-50 MG TAB PO PRN (07:55)
[2021-02-05 12:29] VITALS: BP 114/64; TEMP 98.4
[2021-02-16] MEDS ORDERED: CEDAZURIDINE PO SCH (06:00)
[2021-02-16] MEDS ORDERED: DECITABINE PO SCH (06:00)
== END 2021-02-05 12:35 | disposition home health service (06) | DRG 812 ==
LOC: MADMS 18:45
PROVIDERS: ADMIT Family Medicine; ATTEND Family Medicine
PROC: 30233R1 Transfusion of Nonautologous Platelets into Peripheral Vein, Percutaneous Approach (ICD-10-PCS; principal; 2021-01-31)
DX: D46.9 Myelodysplastic syndrome, unspecified (principal); I50.22 Chronic systolic (congestive) heart failure; M84.48XA Pathological fracture, other site, initial encounter for fracture; R53.1 Weakness; Z66 Do not resuscitate; E78.5 Hyperlipidemia, unspecified; I25.5 Ischemic cardiomyopathy; I25.10 Atherosclerotic heart disease of native coronary artery without angina pectoris; G89.29 Other chronic pain; M54.5 Low back pain; M51.36 Other intervertebral disc degeneration, lumbar region; R50.9 Fever, unspecified; T80.92XA Unspecified transfusion reaction, initial encounter; I11.0 Hypertensive heart disease with heart failure; M06.9 Rheumatoid arthritis, unspecified; Z88.5 Allergy status to narcotic agent; Z79.899 Other long term (current) drug therapy; Z98.1 Arthrodesis status
CPT/HCPCS: 36415; 36430; 80053; 85025; 86900; 86901; J7512; P9035